=== PATIENT | female | born 1990 | race Caucasian/White ===

== ENCOUNTER 2016-12-15 04:32 | Emergency (ER) | payer SELFPAY ==
[~2016-12-15] VITALS: Ht 165.1 cm; Wt 62.0 kg
[~2016-12-15 04:32] MED LIST: IBUP800 PO; MACR100C PO; PYRI200T4 PO
[2016-12-15 04:34] VITALS: BP 139/82; PULSE 111; RESP 16; TEMP 97.7; O2SAT 100
[2016-12-15] MEDS ORDERED: MORPHINE SULFATE 4 MG/ML INJ IM ONE (05:15)
[2016-12-15] MEDS ORDERED: METR-1 PO (05:45)
--- NOTE | 2016-12-15 05:45 | PD ---
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 Patient has a history of reported endometriosis and ovarian cyst. States that for the last 3-4 days she has been having crampy and sharp pain to the left lower quadrant of the abdomen. It worsened today prompting her ER visit. Pain is moderate, constant but does wax and wane. She believes she may have a urinary tract infection due to urinary frequency and slight dysuria. She denies any change in vaginal discharge, new sexual partners or high-risk sexual behavior. Last menstrual. Started approximately 7 days ago. She does not play she could be . Bowel movements regular. No fevers or chills. PFSH Past Medical History Anemia: Yes Anxiety: Yes Depression: Yes Cancer: No Cardiovascular Problems: No COPD: Yes (CHRONIC BRONCHITIS) Diminished Hearing: No Endocrine: No Gastrointestinal Disorders: No Genitourinary: Yes Immune Disorder: No Implanted Vascular Access Dvce: No Kidney Stones: Yes Musculoskeletal: No Neurologic: No Reproductive: Yes (ENDOMETRIOSIS) Respiratory: No Immunizations Current: No ?: Not Menopausal: No : 0 Ovarian Cysts: Yes Past Surgical History Abdominal Surgery: No Cardiac Surgery: No Ear Surgery: No Endocrine Surgery: No Eye Surgery: No Genitourinary Surgery: No Gynecologic Surgery: No Neurologic Surgery: No Oral Surgery: No Thoracic Surgery: No Other Surgery: No Social History Alcohol Use: Yes (3-4 TIMES PER WEEK) Tobacco Use: Yes (1/2 PPD) Substance Use: No (PT DENIES) Allergies-Medications (Allergen,Severity, Reaction): Coded Allergies: Provera (Verified Allergy, Severe, HIVES, 12/15/16) Sulfa (Verified Allergy, Severe, HIVES, 12/15/16) Reported Meds & Prescriptions Reported Meds & Active Scripts Active Flagyl (Metronidazole) 500 Mg Tab 500 Mg PO TID 7 Days Review of Systems Except as stated in HPI: all other systems reviewed are Neg Physical Exam Narrative GENERAL: well-appearing female in mild distress SKIN: Warm and dry. HEAD: Normocephalic. EYES: No scleral icterus. No injection or drainage. ENT: Mucous membranes pink and moist. NECK: Supple CARDIOVASCULAR: Regular rate and rhythm. RESPIRATORY: No accessory muscle use. GASTROINTESTINAL: Abdomen soft, left pelvic tenderness to palpation without rebound or guarding GENITOURINARY: Normal external female genitalia. Speculum examination reveals physiologic appearing discharge within the vaginal vault. No cervical erythema. No cervical motion tenderness but significant left adnexal pain without fullness MUSCULOSKELETAL: No obvious deformities. No edema. NEUROLOGICAL: Awake and alert. Normal speech. PSYCHIATRIC: Appropriate mood and affect; insight and judgment normal. Data Data Last Documented VS Vital Signs Date Time Temp Pulse Resp B/P Pulse Ox O2 Delivery O2 Flow Rate FiO2 12/15/16 05:05 12/15/16 04:34 97.7 111 16 100 Room Air Orders Urinalysis - C+S If Indicated (12/15/16 04:48) Ed Urine Pregnancytest Poc (12/15/16 04:48) Gc And Chlamydia Pcr (12/15/16 05:14) Us Pelvis Comp Sanitary Plumber/Non-Preg (12/15/16 ) Wet Prep Profile (12/15/16 05:14) Morphine Inj (Morphine Inj) (12/15/16 05:15) Labs Laboratory Tests Test 12/15/16 05:16 Urine Color COLORLESS Urine Turbidity CLEAR Urine pH 6.0 Urine Specific [place] 1.003 Urine Protein NEG mg/dL Urine Glucose (UA) NEG mg/dL Urine Ketones NEG mg/dL Urine Occult Blood NEG Urine Nitrite NEG Urine Bilirubin NEG Urine Urobilinogen LESS THAN 2.0 MG/DL Urine Leukocyte Esterase NEG Urine WBC LESS THAN 1 /hpf Urine Squamous Epithelial <1 /hpf Cells Urine Bacteria RARE /hpf Microscopic Urinalysis Comment CULT NOT INDICATED Clue Cells (Wet Prep) NONE SEEN Vaginal Trichomonas (Wet Prep) PRESENT Vaginal Yeast (Wet Prep) NONE SEEN MDM Medical Decision Making Medical Screen Exam Complete: Yes Emergency Medical Condition: Yes Medical Record Reviewed: Yes Differential Diagnosis 26-year-old female here with complaint of left pelvic pain. Differential includes , ectopic , UTI, ureterolithiasis, ovarian cyst, ovarian torsion, TOA, endometriosis, PID. Narrative Course Patient placed on monitor. Given 4 mg morphine for pain. Urine test was negative. GC and Chlamydia sent, but I would not empirically treat patient based on her symptoms and pelvic exam. Wet prep positive for Trichomonas. Urinalysis unremarkable. Ultrasound pelvis pending at the time of dictation. Patient signed out to oncoming provider waiting results of same for hopeful disposition to home. Diagnosis Primary Impression: Trichomonas infection Additional Impression: Pelvic pain Med/Other Pt SpecificInfo: Prescription(s) given Scripts Metronidazole (Flagyl)500 Mg [id number] Mg PO TID 7 Days Ref 0 Prov:Margie Garcias MD 12/15/16 Margie Garcias MD Dec 15, 2016 05:45
[2016-12-15 06:17] LABS: BACTERIA, URINE RARE /hpf; BLOOD, URINE NEG (NEG); COMMENT (UR) CULT NOT INDICATED; CULTURE IF INDICATED CULT NOT INDICATED; GLUCOSE,URINE NEG (NEG); KETONE, URINE NEG (NEG); NITRITE,URINE NEG (NEG); SQUAMOUS EPITHELIAL CELL URINE <1 /hpf (0-5); URINE COLOR COLORLESS (YELLW/STRAW)
--- NOTE | 2016-12-15 08:19 | RADRPT ---
EXAM DATE/TIME: 12/15/2016 07:44 [place] COMPARISON: No previous studies available for comparison. INDICATIONS : Left pelvic pain. MEDICAL HISTORY : Ovarian cysts. Endometriosis. Chronic bronchitits. Renal calculi. SURGICAL HISTORY : None. ENCOUNTER: Initial ACUITY: 2 days PAIN SCORE: 6/10 LOCATION: Left pelvis MEASUREMENTS: UTERUS: 9.0 x 5.1 x 2.5 cm ENDOMETRIAL STRIPE: 7 mm RIGHT OVARY: 3.3 x 4.3 x 1.5 cm LEFT OVARY: 4.2 x 4.2 X 2.1 cm FINDINGS: UTERUS: The myometrium has homogeneous echotexture without mass. RIGHT OVARY: Ovary contains no mass or significant cystic lesion.Normal flow. Multiple follicles. LEFT OVARY: Ovary contains no mass or significant cystic lesion. Normal flow. Simple cyst measures 30 x 22 x 35 mm. MISCELLANEOUS: No free fluid. CONCLUSION: 1. Simple cyst left ovary measures 2.5 cm. 2. No torsion seen. Heri Galvin MD on December 15, 2016 at 8:16 Board Certified Radiologist. This report was verified electronically.
[2016-12-15 08:25] VITALS: BP 115/56; PULSE 88; RESP 16; O2SAT 97
[2016-12-15 09:15] LABS: CHLAMYDIA PCR NOT DETECTED (NOT DETECT); NEISSERIA PCR NOT DETECTED (NOT DETECT)
--- NOTE | 2016-12-15 10:39 | PD ---
Data Data Last Documented VS Vital Signs Date Time Temp Pulse Resp B/P Pulse Ox O2 Delivery O2 Flow Rate FiO2 12/15/16 08:25 88 16 115/56 97 Room Air 12/15/16 04:34 97.7 Orders Urinalysis - C+S If Indicated (12/15/16 04:48) Ed Urine Pregnancytest Poc (12/15/16 04:48) Gc And Chlamydia Pcr (12/15/16 05:14) Wet Prep Profile (12/15/16 05:14) Morphine Inj (Morphine Inj) (12/15/16 05:15) Us Pelvis Comp W Doppler (12/15/16 ) Labs Laboratory Tests Test 12/15/16 05:16 Urine Color COLORLESS Urine Turbidity CLEAR Urine pH 6.0 Urine Specific [place] 1.003 Urine Protein NEG mg/dL Urine Glucose (UA) NEG mg/dL Urine Ketones NEG mg/dL Urine Occult Blood NEG Urine Nitrite NEG Urine Bilirubin NEG Urine Urobilinogen LESS THAN 2.0 MG/DL Urine Leukocyte Esterase NEG Urine WBC LESS THAN 1 /hpf Urine Squamous Epithelial <1 /hpf Cells Urine Bacteria RARE /hpf Microscopic Urinalysis Comment CULT NOT INDICATED Clue Cells (Wet Prep) NONE SEEN Vaginal Trichomonas (Wet Prep) PRESENT Vaginal Yeast (Wet Prep) NONE SEEN Chlamydia trachomatis DNA NOT DETECTED (PCR) Neisseria gonorrhoeae DNA NOT DETECTED (PCR) MDM Supervised Visit with WERO: No Narrative Course Case is checked out to me by Dr. Clark at 7 AM. I reviewed the entirety of the workup with the patient. Was sound asleep when I went in to talk to her and feeling much better. Urine is clean is negative Ultrasound reveals 2.5 cm left ovarian cyst without torsion Stable for outpatient follow-up Flagyl has been prescribed for Trichomonas on wet prep Diagnosis Primary Impression: Trichomonas infection Additional Impression: Pelvic pain Patient Instructions: General Instructions, Trichomoniasis (ED), Pelvic Pain in Women (ED) Departure Forms: Tests/Procedures Med/Other Pt SpecificInfo: Prescription(s) given Scripts Metronidazole (Flagyl)500 Mg [id number] Mg PO TID 7 Days Ref 0 Prov:Margie Garcias MD 12/15/16 Disposition: 01 DISCHARGE HOME Condition: Stable Abram Koenig MD Dec 15, 2016 10:39
[2017-01-22] MEDS ORDERED: ZOFR4TAB PO (10:23)
== END 2016-12-15 10:57 | disposition home or self-care (01) ==
LOC: NEPE 04:32
DX: A59.9 Trichomoniasis, unspecified (principal); F17.210 Nicotine dependence, cigarettes, uncomplicated
CPT/HCPCS: 76856; 81001; 84703; 87210; 87491; 87591; 93975; 96372; 99284; J2270

== ENCOUNTER 2017-01-10 12:50 | Inpatient (IN) | payer SELFPAY ==
[~2017-01-10] VITALS: Ht 165.1 cm; Wt 54.4 kg
[~2017-01-10 12:50] MED LIST changes: -IBUP800 PO; -MACR100C PO; +METR-1 PO; -PYRI200T4 PO
[2017-01-10 12:51] VITALS: BP 122/82; PULSE 132; RESP 24; TEMP 102.8; O2SAT 97
--- NOTE | 2017-01-10 13:01 | PD ---
Physical Exam Date Seen by Provider: Jan 10, 2017 Time Seen by Provider: 12:59 Narrative 26 year old female presents to the emergency department for evaluation of lower back pain, headache, cough. Patient states symptoms started at 7am. She reports fevers, last took Excedrin Migraine, Delsym yesterday. She has not taken anything today for fever. No history of IVDU. Vital signs reviewed. Patient awaiting bed placement. Data Data Last Documented VS Vital Signs Date Time Temp Pulse Resp B/P Pulse Ox O2 Delivery O2 Flow Rate FiO2 01/10/17 12:51 102.8 132 24 122/82 97 Room Air [facility] Supervised Visit with WERO: Anh Jain Jan 10, 2017 13:01
[2017-01-10] MEDS ORDERED: SODIUM CHLOR 0.9% 1000 ML INJ 1,000 ML IV ONE (13:30)
[2017-01-10] MEDS ORDERED: ACETAMINOPHEN 500 MG CPLT PO ONE (13:30)
[2017-01-10] MEDS ORDERED: KETOROLAC TROMETHAMINE 30 MG/ML (IVP) VIAL IV PUSH ONE (13:30)
[2017-01-10 14:28] LABS: HEMATOCRIT 39.2 % (35.0-46.0); MEAN CELL VOLUME 93.1 FL (80.0-100.0); MEAN CORPUSCULAR HEMOGLOBIN 31.8 PG (27.0-34.0); MEAN CORPUSCULAR HGB CONC 34.1 % (32.0-36.0); PLATELET COUNT 252 TH/MM3 (150-450); RED BLOOD COUNT 4.21 MIL/MM3 (4.00-5.30); RED CELL DISTRIBUTION WIDTH 12.9 % (11.6-17.2); WHITE BLOOD COUNT 17.3 TH/MM3 (4.0-11.0)
[2017-01-10 14:32] LABS: HEMO FLAGS AUTO DIFF
[2017-01-10 14:40] LABS: ALT (GPT) 15 U/L (10-53); ANION GAP 8 MEQ/L (5-15); AST (GOT) 8 U/L (15-37); BICARBONATE 29.9 MEQ/L (21.0-32.0); BLOOD UREA NITROGEN 7 MG/DL (7-18); CHLORIDE 96 MEQ/L (98-107); GLOMERULAR FILTRATION RATE 87 ML/MIN (>89); POTASSIUM 3.6 MEQ/L (3.5-5.1); SODIUM (NA) 134 MEQ/L (136-145)
[2017-01-10 14:42] LABS: ALKALINE PHOSPHATASE 77 U/L (45-117); TOTAL BILIRUBIN ADULT 0.3 MG/DL (0.2-1.0)
[2017-01-10 15:03] LABS: BACTERIA, URINE MOD /hpf; BLOOD, URINE LARGE (NEG); COMMENT (UR) CATH-CULTURE IND; CULTURE IF INDICATED CATH CULTURE IND; GLUCOSE,URINE NEG (NEG); KETONE, URINE 40 mg/dL (NEG); MUCUS URINE MOD /lpf (OCC); NITRITE,URINE POS (NEG); PH, URINE 5.5 (5.0-8.5); SQUAMOUS EPITHELIAL CELL URINE 1 /hpf (0-5); TRANSITIONAL EPI CELLS, URINE <1 /hpf; URINE COLOR YELLOW (YELLW/STRAW)
[2017-01-10 15:06] LABS: BANDS 6 % (0-6); NEUTROPHIL # MANUAL DIFF 16.3 TH/MM3 (1.8-7.7); PLATELET ESTIMATE SMEAR NORMAL (NORMAL); PLATELET MORPHOLOGY NORMAL (NORMAL); POLYS (SEG NEUTROPHILS) 88 % (16-70); SCAN/DIFF FINAL DIFF MANUAL; TOXIC VACUOLATION PRESENT (NONE SEEN); WBC DIFF SAMPLE 100
[2017-01-10] MEDS ORDERED: cefTRIAXone INJ 1,000 MG in SODIUM CHLORIDE 0.9% INJ 50 ML IV ONE (15:15)
[2017-01-10 15:31] VITALS: BP 118/70; PULSE 88; RESP 18; TEMP 99.5; O2SAT 98
--- NOTE | 2017-01-10 16:51 | PD ---
HPI Chief Complaint: Cold / Flu Symptoms Time Seen by Provider: 13:23 Travel History International Travel<30 days: No Contact w/Intl Traveler<30days: No Traveled to known affect area: No History of Present Illness HPI This is a 26-year-old female who has a history of recurrent bladder infections who presents to the emergency department with 2 days of lower back pain, constant, moderate severity, associated with fevers and chills. She denies any dysuria, frequency, urgency, sore throat, rhinorrhea or cough. She has a history of recurrent bladder infections. There was a period in time when she required a [place] catheter for 6 months because she couldn't urinate. PFSH Past Medical History Anemia: Yes Anxiety: Yes Depression: Yes Cardiovascular Problems: No COPD: Yes (CHRONIC BRONCHITIS) Diminished Hearing: No Endocrine: No Gastrointestinal Disorders: No Genitourinary: Yes Immune Disorder: No Implanted Vascular Access Dvce: No Kidney Stones: Yes Musculoskeletal: No Neurologic: No Reproductive: Yes (ENDOMETRIOSIS) Respiratory: No Immunizations Current: No Tetanus Vaccination: < 5 Years Influenza Vaccination: Yes ?: Not LMP: 01/08/17 Menopausal: No : 0 Ovarian Cysts: Yes Past Surgical History Abdominal Surgery: No Cardiac Surgery: No Ear Surgery: No Endocrine Surgery: No Eye Surgery: No Genitourinary Surgery: No Gynecologic Surgery: No Neurologic Surgery: No Oral Surgery: No Thoracic Surgery: No Other Surgery: No Social History Alcohol Use: Yes (3-4 TIMES PER WEEK) Tobacco Use: Yes (1/2 PPD) Substance Use: No (PT DENIES) Allergies-Medications (Allergen,Severity, Reaction): Coded Allergies: Provera (Verified Allergy, Severe, HIVES, 01/10/17) Sulfa (Verified Allergy, Severe, HIVES, 01/10/17) Reported Meds & Prescriptions Reported Meds & Active Scripts Active No Active Prescriptions or Reported Medications Review of Systems Except as stated in HPI: all other systems reviewed are Neg Physical Exam Narrative GENERAL: Unwell-appearing. SKIN: Focused skin assessment warm and dry. HEAD: Atraumatic. Normocephalic. EYES: Pupils equal and round. No injection or drainage. ENT: Moist mucous membranes NECK: Trachea midline. CARDIOVASCULAR: Regular rate and rhythm. No murmur appreciated. RESPIRATORY: Clear to auscultation. Breath sounds equal bilaterally. GASTROINTESTINAL: Abdomen soft, non-tender, nondistended. : Bilateral CVA tenderness. MUSCULOSKELETAL: No obvious deformities. NEUROLOGICAL: Awake and alert. No obvious cranial nerve deficits. Moving all extremities. PSYCHIATRIC: Appropriate mood and affect; insight and judgment normal. Data Data Last Documented VS Vital Signs Date Time Temp Pulse Resp B/P Pulse Ox O2 Delivery O2 Flow Rate FiO2 01/10/17 15:31 99.5 88 18 118/70 98 Room Air Orders Complete Blood Count With Diff (01/10/17 13:23) Comprehensive Metabolic Panel (01/10/17 13:23) ^ Insert Iv (01/10/17 13:23) Blood Culture (01/10/17 13:23) Lactic Acid (01/10/17 13:23) Sodium Chlor 0.9% 1000 Ml Inj (Ns 1000 M (01/10/17 13:30) Acetaminophen (Tylenol) (01/10/17 13:30) Ketorolac Inj (Toradol Inj) (01/10/17 13:30) Urinalysis - C+S If Indicated (01/10/17 13:23) Cath For Specimen (01/10/17 13:23) Ed Urine Pregnancytest Poc (01/10/17 13:23) Urine Culture (01/10/17 14:30) Ceftriaxone Inj (Rocephin Inj) (01/10/17 15:15) Admit Order (Ed Use Only) (01/10/17 16:20) Labs Laboratory Tests Test 01/10/17 01/10/17 13:50 14:30 White Blood Count 17.3 TH/MM3 Red Blood Count 4.21 MIL/MM3 Hemoglobin 13.4 GM/DL Hematocrit 39.2 % Mean Corpuscular Volume 93.1 FL Mean Corpuscular Hemoglobin 31.8 PG Mean Corpuscular Hemoglobin 34.1 % Concent Red Cell Distribution Width 12.9 % Platelet Count 252 TH/MM3 Mean Platelet Volume 8.5 FL Neutrophils (%) (Auto) % Lymphocytes (%) (Auto) % Monocytes (%) (Auto) % Eosinophils (%) (Auto) % Basophils (%) (Auto) % Neutrophils # (Auto) TH/MM3 Lymphocytes # (Auto) TH/MM3 Monocytes # (Auto) TH/MM3 Eosinophils # (Auto) TH/MM3 Basophils # (Auto) TH/MM3 CBC Comment AUTO DIFF Differential Total Cells 100 Counted Neutrophils % (Manual) 88 % Band Neutrophils % 6 % Lymphocytes % 2 % Monocytes % 4 % Neutrophils # (Manual) 16.3 TH/MM3 Differential Comment FINAL DIFF MANUAL Toxic Vacuolation PRESENT Platelet Estimate NORMAL Platelet Morphology Comment NORMAL Red Cell Morphology Comment NORMAL Sodium Level 134 MEQ/L Potassium Level 3.6 MEQ/L Chloride Level 96 MEQ/L Carbon Dioxide Level 29.9 MEQ/L Anion Gap 8 MEQ/L Blood Urea Nitrogen 7 MG/DL Creatinine 0.81 MG/DL Estimat Glomerular Filtration 87 ML/MIN Rate Random Glucose 107 MG/DL Lactic Acid Level 1.0 mmol/L Calcium Level 9.1 MG/DL Total Bilirubin 0.3 MG/DL Aspartate Amino Transf 8 U/L (AST/SGOT) Alanine Aminotransferase 15 U/L (ALT/SGPT) Alkaline Phosphatase 77 U/L Total Protein 8.0 GM/DL Albumin 3.7 GM/DL Urine Color YELLOW Urine Turbidity HAZY Urine pH 5.5 Urine Specific [place] 1.026 Urine Protein 100 mg/dL Urine Glucose (UA) NEG mg/dL Urine Ketones 40 mg/dL Urine Occult Blood LARGE Urine Nitrite POS Urine Bilirubin NEG Urine Urobilinogen LESS THAN 2.0 MG/DL Urine Leukocyte Esterase SMALL Urine RBC 21 /hpf Urine WBC 13 /hpf Urine Squamous Epithelial 1 /hpf Cells Urine Transitional Epithelial <1 /hpf Cells Urine Amorphous Sediment RARE Urine Bacteria MOD /hpf Urine Mucus MOD /lpf Microscopic Urinalysis Comment CATH-CULTURE IND MDM Medical Decision Making Medical Screen Exam Complete: Yes Emergency Medical Condition: Yes Interpretation(s) Fever, tachycardia Leukocytosis 88% neutrophils Electrolytes are reassuring Lactic acid is normal Urinalysis: Urinary tract infection Differential Diagnosis Pyelonephritis, cystitis, sepsis, nephrolithiasis Narrative Course This is a 26-year-old female who presents to the emergency department with fevers and low back pain. Her pain is bilateral. She was febrile on arrival. An IV was established and she was given IV hydration, acetaminophen and Toradol. Labs demonstrate a leukocytosis. Cultures were obtained and patient was given a dose of ceftriaxone. She'll be admitted for sepsis in the setting of likely pyelonephritis. I considered an infected stone but her pain is bilateral so I think this is less likely in patient is young and there is a risk of radiation. If her pain lateralizes or she doesn't improve it would be reasonable to CT scan at that time. Physician Communication Physician Communication Discussed with Dr. Samuels Diagnosis Primary Impression: Pyelonephritis Admitting Information Admitting Physician Requests: Admit Scripts No Active Prescriptions or Reported Meds Pamela Chauhan MD Jan 10, 2017 16:51
[2017-01-10] MEDS: SODIUM CHLOR 0.9% 1000 ML INJ 1,000 ML IV SCH ×2 (16:52→19:37)
[2017-01-10 17:00] VITALS: BP 101/65; PULSE 95; RESP 16; TEMP 99.3; O2SAT 98
[2017-01-10 18:28] LABS: AMPHETAMINE, URINE NEG (NEG); BARBITURATES, URINE NEG (NEG); COCAINE, URINE POS (NEG)
[2017-01-10] MEDS: traMADol/ACETAMINOPHEN 37.5/325 1 TAB PO PRN (18:36)
[2017-01-10 20:16] VITALS: BP 102/51; PULSE 106; RESP 18; TEMP 101.6; O2SAT 98
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
[2017-01-10] MEDS: ACETAMINOPHEN 325 MG TAB PO PRN (21:57)
[2017-01-10] MEDS: ONDANSETRON HCL 4 MG/2 ML VIAL IV PUSH PRN (23:14)
[2017-01-11] VITALS (7 sets, daily range): BP systolic 96–113; BP diastolic 56–67; PULSE 79–109; RESP 16–22; TEMP 97.5–101.9; O2SAT 95–99
[2017-01-11] MEDS: traMADol/ACETAMINOPHEN 37.5/325 1 TAB PO PRN ×3 (06:43→23:37)
[2017-01-11 07:55] LABS: HEMATOCRIT 33.4 % (35.0-46.0); MEAN CELL VOLUME 93.4 FL (80.0-100.0); MEAN CORPUSCULAR HEMOGLOBIN 30.6 PG (27.0-34.0); MEAN CORPUSCULAR HGB CONC 32.8 % (32.0-36.0); PLATELET COUNT 187 TH/MM3 (150-450); RED BLOOD COUNT 3.58 MIL/MM3 (4.00-5.30); RED CELL DISTRIBUTION WIDTH 12.9 % (11.6-17.2); WHITE BLOOD COUNT 17.6 TH/MM3 (4.0-11.0)
[2017-01-11 08:04] LABS: HEMO FLAGS AUTO DIFF
[2017-01-11 09:00] LABS: BANDS 3 % (0-6); NEUTROPHIL # MANUAL DIFF 15.7 TH/MM3 (1.8-7.7); POLYS (SEG NEUTROPHILS) 86 % (16-70); WBC DIFF SAMPLE 100
[2017-01-11 09:01] LABS: PLATELET ESTIMATE SMEAR NORMAL (NORMAL); PLATELET MORPHOLOGY NORMAL (NORMAL); SCAN/DIFF FINAL DIFF MANUAL
[2017-01-11] MEDS: ACETAMINOPHEN 325 MG TAB PO PRN ×3 (09:05→23:37)
[2017-01-11] MEDS: ONDANSETRON HCL 4 MG/2 ML VIAL IV PUSH PRN (09:43)
[2017-01-11] MEDS ORDERED: cefTRIAXone INJ 1,000 MG in SODIUM CHLORIDE 0.9% INJ 100 ML IV SCH (13:00)
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
--- NOTE | 2017-01-11 17:56 | HHI.PR ---
Subjective Remarks denies any urinary symptoms, flank pain T max 102 with sweating some loose stools Objective Vitals Vital Signs Date Time Temp Pulse Resp B/P Pulse Ox O2 Delivery O2 Flow Rate FiO2 01/11/17 15:48 101.2 92 18 113/67 97 01/11/17 11:43 97.5 79 18 100/58 98 01/11/17 10:05 16 01/11/17 07:43 17 01/11/17 07:19 101.9 109 18 108/61 96 01/11/17 04:00 100.0 93 18 103/67 99 01/11/17 00:00 100.3 108 22 96/56 97 01/10/17 20:16 101.6 106 18 102/51 98 I/O 01/10/17 01/10/17 01/10/17 01/11/17 01/11/17 01/11/17 07:00 15:00 23:00 07:00 15:00 23:00 Intake Total 350 ml 944 ml Balance 350 ml 944 ml Intake Oral 50 ml 100 ml IV Total 300 ml 844 ml # Voids 1 1 # Bowel Movements 0 0 Result Diagram: 01/11/17 0723 01/10/17 1350 Imaging Last Impressions Renal Ultrasound 01/11/17 0000 Signed Impressions: Service Date/Time: Wednesday, January 11, 2017 14:35 - CONCLUSION: 1. Possible mass mid pole left kidney. Recommend further evaluation with abdomen and pelvic CT with contrast. Filipe Ureña MD Pelvis Ultrasound 01/11/17 0000 Signed Impressions: Service Date/Time: Wednesday, January 11, 2017 14:27 - CONCLUSION: 1. Probable trace hemorrhage in the endometrial canal. 2. 4.2 x 3.1 x 2.2 cm left ovarian cyst slightly larger than on December 15. 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 Cocaine abuse. Patient vehemently denies this Low back pain possibly related to urinary tract infection no point tenderness on examination of the spine no radiculopathy - no complains Ultracet when necessary for pain If persists will do more imaging studies. Encourage ambulation Mike Samuels MD Jan 11, 2017 17:56
[2017-01-11] MEDS ORDERED: IOHEXOL 350 MG/ML 10 ML VIAL (for RAD DIAG) IV ONE (18:50)
[2017-01-11 22:19] LABS: C. DIFF EPI 027 PRESUMPTIVE NEGATIVE (NEGATIVE); C. DIFF TOXIN PCR NEGATIVE (NEGATIVE)
--- NOTE | 2017-01-11 22:19 | RADRPT ---
EXAM DATE/TIME: 01/11/2017 18:46 [facility] COMPARISON: No previous studies available for comparison. INDICATIONS : Abdomen pain. IV CONTRAST: 100 cc Omnipaque 350 (iohexol) IV ORAL CONTRAST: No oral contrast ingested. RADIATION DOSE: 5.51 CTDIvol (mGy) MEDICAL HISTORY : Pyelonephritis, ovarian cyst. SURGICAL HISTORY : None. ENCOUNTER: Initial ACUITY: 1 day PAIN SCALE: 5/10 LOCATION: Bilateral flank TECHNIQUE: Volumetric scanning of the abdomen and pelvis was performed. Using automated exposure control and ad justment of the mA and/or kV according to patient size, radiation dose was kept as low as reasonably achievable to obtain optimal diagnostic quality images. FINDINGS: Reportedly there is a history of pyelonephritis. There is a focal 4.4 cm area of heterogeneous enhanc ement in the midpole left kidney and a 3 cm area in the upper pole left kidney. There is also surroun ding stranding and edematous change. Findings are most characteristic of pyelonephritis. Abnormality in the midpole kidney was seen sonographically. An ultrasound followup is recommended after treatment to assess for resolution. There are trace bilateral pleural effusions. Small cyst upper portion dome of liver. Spleen, right ad renal, right kidney and pancreas unremarkable. There is a 1.6 cm low-attenuation lesion just anterior to the upper pole left kidney unchanged from 2012, possibly small cyst or adenoma. No calcified gall stones or biliary ductal dilatation. There is a 3.9 cm cyst left adnexa. There is no free fluid. A mild obstruction. No adenopathy. CONCLUSION: 1. Focal areas of heterogeneous enhancement in the midpole left kidney measuring 4.4 cm in upper pole left kidney measuring 3 cm with surrounding perinephric stranding and most characteristic of a repor citlalli history of pyelonephritis. The abnormality in the midpole is seen sonographically and followup ul trasound recommended next 6 weeks to assess for for resolution after treatment of pyelonephritis. 2. No other acute findings within the abdomen. There is a 3.9 cm presumed cyst in the left adnexal re wayne Ureña MD on January 11, 2017 at 22:07 Board Certified Radiologist. This report was verified electronically.
[2017-01-12] MEDS: ONDANSETRON HCL 4 MG/2 ML VIAL IV PUSH PRN (06:19)
[2017-01-12 07:18] LABS: AUTOMATED NEUTROPHIL # 7.1 TH/MM3 (1.8-7.7); BASOPHIL # 0.1 TH/MM3 (0-0.2); BASOPHIL % 0.5 % (0.0-2.0); EOSINOPHIL # 0.1 TH/MM3 (0-0.4); EOSINOPHIL % 0.6 % (0.0-4.0); HEMATOCRIT 31.9 % (35.0-46.0); HEMO FLAGS DIFF FINAL; LYMPH % 18.2 % (9.0-44.0); LYMPHOCYTE # 1.9 TH/MM3 (1.0-4.8); MEAN CELL VOLUME 92.5 FL (80.0-100.0); MEAN CORPUSCULAR HGB CONC 34.6 % (32.0-36.0); MONO % 13.3 % (0.0-8.0); NEUT % 67.4 % (16.0-70.0); PLATELET COUNT 230 TH/MM3 (150-450); RED BLOOD COUNT 3.45 MIL/MM3 (4.00-5.30); RED CELL DISTRIBUTION WIDTH 13.1 % (11.6-17.2); WHITE BLOOD COUNT 10.5 TH/MM3 (4.0-11.0)
[2017-01-12 08:00] VITALS: BP 111/76; PULSE 66; RESP 16; TEMP 97.8; O2SAT 100
[2017-01-12] MEDS: ACETAMINOPHEN 325 MG TAB PO PRN (09:07)
[2017-01-12] MEDS: traMADol/ACETAMINOPHEN 37.5/325 1 TAB PO PRN (09:07)
--- NOTE | 2017-01-12 09:58 | HHI.PR ---
Subjective Remarks T down - 97.3 no dysuria, or flank pain, no headache no nausea or vomiting Objective Vitals Vital Signs Date Time Temp Pulse Resp B/P Pulse Ox O2 Delivery O2 Flow Rate FiO2 01/11/17 23:45 99.4 80 16 111/67 95 01/11/17 20:05 98.9 86 16 108/64 97 01/11/17 15:48 101.2 92 18 113/67 97 01/11/17 11:43 97.5 79 18 100/58 98 01/11/17 10:05 16 I/O 01/11/17 01/11/17 01/11/17 01/12/17 01/12/17 01/12/17 07:00 15:00 23:00 07:00 15:00 23:00 Intake Total 944 ml 720 ml 580 ml 1000 ml Balance 944 ml 720 ml 580 ml 1000 ml Intake Oral 100 ml 720 ml 240 ml 480 ml IV Total 844 ml 340 ml 520 ml # Voids 1 4 2 1 # Bowel Movements 0 3 1 0 Result Diagram: 01/12/17 0605 01/10/17 1350 Imaging Last Impressions Renal Ultrasound 01/11/17 0000 Signed Impressions: Service Date/Time: Wednesday, January 11, 2017 14:35 - CONCLUSION: 1. Possible mass mid pole left kidney. Recommend further evaluation with abdomen and pelvic CT with contrast. Filipe Ureña MD Pelvis Ultrasound 01/11/17 0000 Signed Impressions: Service Date/Time: Wednesday, January 11, 2017 14:27 - CONCLUSION: 1. Probable trace hemorrhage in the endometrial canal. 2. 4.2 x 3.1 x 2.2 cm left ovarian cyst slightly larger than on December 15. Filipe Ureña MD Abdomen/Pelvis CT 01/11/17 0000 Signed Impressions: Service Date/Time: Wednesday, January 11, 2017 18:46 - CONCLUSION: 1. Focal areas of heterogeneous enhancement in the midpole left kidney measuring 4.4 cm in upper pole left kidney measuring 3 cm with surrounding perinephric stranding and most characteristic of a reported history of pyelonephritis. The abnormality in the midpole is seen sonographically and followup ultrasound recommended next 6 weeks to assess for for resolution after treatment of pyelonephritis. 2. No other acute findings within the abdomen. There is a 3.9 cm presumed cyst in the left adnexal region Filipe Ureña MD Objective Remarks awake and alert lungs clear regular rhythm abdomen soft, nontender, no CVA tenderness extremities no edema A/P Assessment and Plan 26-year-old female presenting with fever chills tachycardia- improved Sepsis likely secondary to acute pyelonephritis - afebrile with microscopic hematuria- just finished her cycles- E coli on urine history of kidney mass CT no mass- suggest pyelonephritis Irregular menstrual cycles- ff up with [facility]- referral through Dr. Hart- blue card issued Leukocytosis secondary to sepsis- Improved- afebrile- WBC down Cocaine abuse. Patient vehemently denies this Low back pain possibly related to urinary tract infection no point tenderness on examination of the spine no radiculopathy - no complains Ultracet when necessary for pain DC today- ff up with our [facility] [place] and [facility]- - will ask CM to assist us- Blue card d/w about safe sex- patient monogamous DC home today Activity- as tolerated Diet regular. encourage po fluids Meds- Ciprofloxacin 500 mg po bid x 12 days Ff up with PCP Mike Samuels MD Jan 12, 2017 09:58
[2017-01-12] MEDS ORDERED: cefTRIAXone INJ 1,000 MG in SODIUM CHLORIDE 0.9% INJ 100 ML IV SCH (10:15)
[2017-01-12] MEDS ORDERED: CIPR-9 PO (10:19)
[2017-01-12 11:58] VITALS: BP 105/66; PULSE 78; RESP 16; TEMP 97.9; O2SAT 99
[2017-01-22] MEDS ORDERED: ZOFR4TAB PO (10:23)
== END 2017-01-12 15:24 | disposition home or self-care (01) | DRG 872 ==
LOC: NEPD 12:50 → NEDA 16:21 → N06B 17:08
PROVIDERS: ADMIT Internal Medicine; ATTEND Internal Medicine
DX: A41.9 Sepsis, unspecified organism (principal); N10 Acute pyelonephritis; F10.129 Alcohol abuse with intoxication, unspecified; F14.10 Cocaine abuse, uncomplicated; N28.89 Other specified disorders of kidney and ureter; R31.29 Other microscopic hematuria; J42 Unspecified chronic bronchitis; F17.200 Nicotine dependence, unspecified, uncomplicated
CPT/HCPCS: 74177; 76775; 76856; 80053; 80307; 81001; 83605; 84703; 85007; 85025; 85027; 87040; 87077; 87086; 87186; 87493; 96361; 96365; 96375; J0696; J1885; J2405; J7030; P9612; Q9967

== ENCOUNTER 2017-02-22 15:16 | Emergency (ER) | payer SELFPAY ==
[~2017-02-22] VITALS: Ht 165.1 cm; Wt 61.0 kg
[~2017-02-22 15:16] MED LIST changes: +CIPR-9 PO; -METR-1 PO; +ZOFR4TAB PO
[2017-02-22 15:18] VITALS: BP 119/73; PULSE 78; RESP 18; TEMP 98.2; O2SAT 98
[2017-02-22] MEDS ORDERED: SODIUM CHLOR 0.9% 1000 ML INJ 1,000 ML IV ONE (15:45)
[2017-02-22 16:19] LABS: AUTOMATED NEUTROPHIL # 3.7 TH/MM3 (1.8-7.7); BASOPHIL # 0.1 TH/MM3 (0-0.2); BASOPHIL % 0.9 % (0.0-2.0); EOSINOPHIL # 0.1 TH/MM3 (0-0.4); EOSINOPHIL % 1.1 % (0.0-4.0); HEMATOCRIT 37.1 % (35.0-46.0); HEMO FLAGS DIFF FINAL; LYMPH % 33.7 % (9.0-44.0); LYMPHOCYTE # 2.3 TH/MM3 (1.0-4.8); MEAN CELL VOLUME 91.8 FL (80.0-100.0); MEAN CORPUSCULAR HEMOGLOBIN 31.7 PG (27.0-34.0); MEAN CORPUSCULAR HGB CONC 34.5 % (32.0-36.0); NEUT % 54.3 % (16.0-70.0); PLATELET COUNT 309 TH/MM3 (150-450); RED BLOOD COUNT 4.04 MIL/MM3 (4.00-5.30); RED CELL DISTRIBUTION WIDTH 14.2 % (11.6-17.2); WHITE BLOOD COUNT 6.8 TH/MM3 (4.0-11.0)
[2017-02-22 16:42] LABS: ALT (GPT) 23 U/L (10-53); ANION GAP 10 MEQ/L (5-15); AST (GOT) 17 U/L (15-37); BICARBONATE 27.2 MEQ/L (21.0-32.0); BLOOD UREA NITROGEN 9 MG/DL (7-18); CHLORIDE 106 MEQ/L (98-107); GLOMERULAR FILTRATION RATE 125 ML/MIN (>89); POTASSIUM 4.1 MEQ/L (3.5-5.1); SODIUM (NA) 143 MEQ/L (136-145)
[2017-02-22 16:44] LABS: ALKALINE PHOSPHATASE 70 U/L (45-117); TOTAL BILIRUBIN ADULT 0.2 MG/DL (0.2-1.0)
[2017-02-22 16:55] LABS: BETA HCG QUANT LESS THAN 1 MIU/ML (0-5)
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
--- NOTE | 2017-02-22 17:17 | PD ---
HPI Chief Complaint: Abdominal Pain Time Seen by Provider: 15:29 Travel History International Travel<30 days: No Contact w/Intl Traveler<30days: No Traveled to known affect area: No History of Present Illness HPI Patient is a 26 year old female who comes in complaining of LLQ pain. She says the pain started yesterday and has been getting worse. She denies any dysuria, vaginal discharge. She tried taking some Naproxen without much relief. She says she had a period 2 months ago and only spotting last month. She has had 2 negative tests at home. She denies any nausea or vomiting. She denies fever or chills. She had a bowel movement this morning that was normal. PFSH Past Medical History Anemia: Yes Anxiety: Yes Depression: Yes Cancer: No Cardiovascular Problems: No COPD: Yes (CHRONIC BRONCHITIS) Diabetes: No Patient Takes Glucophage: No Diminished Hearing: No Endocrine: No Gastrointestinal Disorders: No Genitourinary: Yes Immune Disorder: No Implanted Vascular Access Dvce: No Kidney Stones: Yes Musculoskeletal: No Neurologic: No Reproductive: Yes (endometriosis) Respiratory: No Immunizations Current: No Tetanus Vaccination: > 5 Years ?: Unknown LMP: 02/14/2017 Menopausal: No : 0 Ovarian Cysts: Yes Past Surgical History Surgical History: No Previous Surgery Abdominal Surgery: No Cardiac Surgery: No Ear Surgery: No Endocrine Surgery: No Eye Surgery: No Genitourinary Surgery: No Gynecologic Surgery: No Neurologic Surgery: No Oral Surgery: No Thoracic Surgery: No Other Surgery: No Social History Alcohol Use: Yes (social once a week) Tobacco Use: Yes (2-3 cigs per day) Substance Use: No Allergies-Medications (Allergen,Severity, Reaction): Coded Allergies: Provera (Verified Allergy, Severe, HIVES, 01/22/17) Sulfa (Verified Allergy, Severe, HIVES, 01/22/17) Reported Meds & Prescriptions Reported Meds & Active Scripts Active Zofran (Ondansetron HCl) 4 Mg Tab 4 Mg PO Q12HR PRN Review of Systems Except as stated in HPI: all other systems reviewed are Neg General / Constitutional: No: Fever, Chills HENT: No: Headaches, Lightheadedness Cardiovascular: No: Chest Pain or Discomfort Respiratory: No: Shortness of Breath Gastrointestinal: Positive: Abdominal Pain, No: Nausea, Vomiting, Diarrhea, Constipation Genitourinary: No: Dysuria, Discharge, Vaginal Bleeding Skin: No Rash Neurologic: No: Weakness, Dizziness Physical Exam Narrative GENERAL: Awake and alert, in no acute distress. SKIN: Focused skin assessment warm/dry. HEAD: Atraumatic. Normocephalic. EYES: Pupils equal and round. No scleral icterus. ENT: Mucous membranes pink and moist. NECK: Trachea midline. No JVD. CARDIOVASCULAR: Regular rate and rhythm. No murmur appreciated. RESPIRATORY: No accessory muscle use. Clear to auscultation. Breath sounds equal bilaterally. GASTROINTESTINAL: Abdomen soft, nondistended. Tender to left pelvic area. No rebound or guarding. No CVA tenderness. 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 Clear discharged from the os. No CMT or adnexal tenderness. MUSCULOSKELETAL: No obvious deformities. No clubbing. No cyanosis. No edema. NEUROLOGICAL: Awake and alert. No obvious cranial nerve deficits. Motor grossly within normal limits. Normal speech. PSYCHIATRIC: Appropriate mood and affect; insight and judgment normal. Data Data Last Documented VS Vital Signs Date Time Temp Pulse Resp B/P Pulse Ox O2 Delivery O2 Flow Rate FiO2 02/22/17 15:30 16 02/22/17 15:18 98.2 78 119/73 98 Orders Complete Blood Count With Diff (02/22/17 15:41) Comprehensive Metabolic Panel (02/22/17 15:41) Wet Prep Profile (02/22/17 15:41) Gc And Chlamydia Pcr (02/22/17 15:41) Urinalysis - C+S If Indicated (02/22/17 15:41) Ed Urine Pregnancytest Poc (02/22/17 15:41) Sodium Chlor 0.9% 1000 Ml Inj (Ns 1000 M (02/22/17 15:45) Us Pelvis Comp Manager Filter/Non-Preg (02/22/17 ) Beta Hcg (Quant/Titer) (02/22/17 16:22) Cath For Specimen (02/22/17 16:59) Ketorolac Inj (Toradol Inj) (02/22/17 17:30) Labs Laboratory Tests Test 02/22/17 02/22/17 16:10 16:21 White Blood Count 6.8 TH/MM3 Red Blood Count 4.04 MIL/MM3 Hemoglobin 12.8 GM/DL Hematocrit 37.1 % Mean Corpuscular Volume 91.8 FL Mean Corpuscular Hemoglobin 31.7 PG Mean Corpuscular Hemoglobin 34.5 % Concent Red Cell Distribution Width 14.2 % Platelet Count 309 TH/MM3 Mean Platelet Volume 7.8 FL Neutrophils (%) (Auto) 54.3 % Lymphocytes (%) (Auto) 33.7 % Monocytes (%) (Auto) 10.0 % Eosinophils (%) (Auto) 1.1 % Basophils (%) (Auto) 0.9 % Neutrophils # (Auto) 3.7 TH/MM3 Lymphocytes # (Auto) 2.3 TH/MM3 Monocytes # (Auto) 0.7 TH/MM3 Eosinophils # (Auto) 0.1 TH/MM3 Basophils # (Auto) 0.1 TH/MM3 CBC Comment DIFF FINAL Differential Comment Sodium Level 143 MEQ/L Potassium Level 4.1 MEQ/L Chloride Level 106 MEQ/L Carbon Dioxide Level 27.2 MEQ/L Anion Gap 10 MEQ/L Blood Urea Nitrogen 9 MG/DL Creatinine 0.59 MG/DL Estimat Glomerular Filtration 125 ML/MIN Rate Random Glucose 84 MG/DL Calcium Level 8.5 MG/DL Total Bilirubin 0.2 MG/DL Aspartate Amino Transf 17 U/L (AST/SGOT) Alanine Aminotransferase 23 U/L (ALT/SGPT) Alkaline Phosphatase 70 U/L Total Protein 7.3 GM/DL Albumin 3.7 GM/DL Human Chorionic Gonadotropin, LESS THAN 1 Quant MIU/ML Urine Color YELLOW Urine Turbidity CLEAR Urine pH 7.0 Urine Specific Jayess 1.016 Urine Protein TRACE mg/dL Urine Glucose (UA) NEG mg/dL Urine Ketones NEG mg/dL Urine Occult Blood MOD Urine Nitrite NEG Urine Bilirubin NEG Urine Urobilinogen LESS THAN 2.0 MG/DL Urine Leukocyte Esterase NEG Urine RBC 78 /hpf Urine WBC 5 /hpf Urine Squamous Epithelial 1 /hpf Cells Urine Mucus FEW /lpf Microscopic Urinalysis Comment CULT NOT INDICATED Clue Cells (Wet Prep) NONE SEEN Vaginal Trichomonas (Wet Prep) NONE SEEN Vaginal Yeast (Wet Prep) NONE SEEN MDM Medical Decision Making Medical Screen Exam Complete: Yes Emergency Medical Condition: Yes Differential Diagnosis BV vs UTI vs pyelonephritis vs ovarian cyst Narrative Course Patient is a 26-year-old female comes in complaining of left-sided pelvic pain. Exam shows tenderness to the left pelvic area. IV established, labs sent. Labs show no acute abnormalities, patient is not . Urinalysis shows some occult blood, no signs of infection. US show persistent left ovarian cyst. Last 24 hours Impressions Pelvis Ultrasound 02/22/17 0000 Signed Impressions: Service Date/Time: Wednesday, February 22, 2017 16:26 - CONCLUSION: Persistent ovarian cyst on the left imaged multiple previous ultrasounds and CT. Isrrael Hernadez MD FACR Patient given IVF and Toradol. Advised to follow up with clinical project manager. Advised to continue Naproxen or Ibuprofen for pain. Advised to return to the ED as needed for any worsening symptoms. Diagnosis Primary Impression: Ovarian cyst Referrals: Virgie Collins MD call for appointment Patient Instructions: General Instructions, Ovarian Cyst (ED) Additional Instructions: Take Ibuprofen or Naproxen for pain. Follow up with gynecology. Return to the ED as needed for any worsening symptoms. Disposition: 01 DISCHARGE HOME Condition: Stable Rena Diaz MD February 22, 2017 17:17
[2017-02-22 17:25] LABS: BLOOD, URINE MOD (NEG); COMMENT (UR) CULT NOT INDICATED; CULTURE IF INDICATED CULT NOT INDICATED; GLUCOSE,URINE NEG (NEG); KETONE, URINE NEG (NEG); MUCUS URINE FEW /lpf (OCC); NITRITE,URINE NEG (NEG); SQUAMOUS EPITHELIAL CELL URINE 1 /hpf (0-5); URINE COLOR YELLOW (YELLW/STRAW)
[2017-02-22] MEDS ORDERED: KETOROLAC TROMETHAMINE 30 MG/ML (IVP) VIAL IV PUSH ONE (17:30)
[2017-02-22 17:49] VITALS: TEMP 98.2
[2017-02-22 18:31] LABS: CHLAMYDIA PCR NOT DETECTED (NOT DETECT); NEISSERIA PCR NOT DETECTED (NOT DETECT)
== END 2017-02-22 17:50 | disposition home or self-care (01) ==
LOC: NEPD 15:16
DX: N83.202 Unspecified ovarian cyst, left side (principal); Z72.0 Tobacco use; Z86.2 Personal history of diseases of the blood and blood-forming organs and certain disorders involving the immune mechanism; Z86.59 Personal history of other mental and behavioral disorders; Z87.09 Personal history of other diseases of the respiratory system; Z87.448 Personal history of other diseases of urinary system; Z87.42 Personal history of other diseases of the female genital tract
CPT/HCPCS: 76856; 80053; 81001; 84702; 85025; 87210; 87491; 87591; 96361; 96374; 99285; J1885; J7030; P9612

== ENCOUNTER 2017-03-05 01:34 | Emergency (ER) | payer SELFPAY ==
[~2017-03-05] VITALS: Ht 165.1 cm; Wt 62.3 kg
[~2017-03-05 01:34] MED LIST changes: -CIPR-9 PO
[2017-03-05 01:50] VITALS: BP 125/87; PULSE 130; RESP 24; TEMP 98.8; O2SAT 98
[2017-03-05] MEDS ORDERED: TETANUS/DIPHTHERIA TOXOID ADULT 0.5 ML VIAL IM ONE (02:15)
[2017-03-05] MEDS ORDERED: LIDOCAINE 1%/EPINEPHrine 1:100,000 SOLN 20 ML VIAL INFIL ONE (02:15)
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
== END 2017-03-05 02:52 | disposition left against medical advice (07) ==
LOC: NEPD 01:34
DX: Z53.21 Procedure and treatment not carried out due to patient leaving prior to being seen by health care provider (principal); S09.90XA Unspecified injury of head, initial encounter; S00.31XA Abrasion of nose, initial encounter; S10.97XA Other superficial bite of unspecified part of neck, initial encounter; M79.642 Pain in left hand; M79.641 Pain in right hand; Z72.0 Tobacco use; Y04.2XXA Assault by strike against or bumped into by another person, initial encounter
CPT/HCPCS: 99283

== ENCOUNTER 2017-03-19 21:16 | Emergency (ER) | payer SELFPAY ==
[~2017-03-19] VITALS: Ht 165.1 cm; Wt 62.0 kg
[2017-03-19 21:18] VITALS: BP 125/85; PULSE 114; RESP 16; TEMP 101.9; O2SAT 98
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
[2017-03-19] MEDS ORDERED: SODIUM CHLOR 0.9% 1000 ML INJ 1,000 ML IV ONE (22:15)
[2017-03-19] MEDS ORDERED: cefTRIAXone INJ 1,000 MG in SODIUM CHLORIDE 0.9% INJ 100 ML IV ONE (22:15)
[2017-03-19] MEDS ORDERED: ACETAMINOPHEN 500 MG CPLT PO ONE (22:15)
[2017-03-19] MEDS ORDERED: ONDANSETRON HCL 4 MG/2 ML VIAL IV ONE (22:15)
[2017-03-19 22:28] LABS: AUTOMATED NEUTROPHIL # 12.1 TH/MM3 (1.8-7.7); BASOPHIL % 0.3 % (0.0-2.0); EOSINOPHIL % 0.1 % (0.0-4.0); HEMO FLAGS DIFF FINAL; LYMPH % 7.2 % (9.0-44.0); MEAN CELL VOLUME 92.1 FL (80.0-100.0); MEAN CORPUSCULAR HEMOGLOBIN 31.3 PG (27.0-34.0); MONO % 6.8 % (0.0-8.0); NEUT % 85.6 % (16.0-70.0); PLATELET COUNT 278 TH/MM3 (150-450); RED BLOOD COUNT 4.45 MIL/MM3 (4.00-5.30); RED CELL DISTRIBUTION WIDTH 14.2 % (11.6-17.2); WHITE BLOOD COUNT 14.1 TH/MM3 (4.0-11.0)
[2017-03-19 22:33] LABS: BACTERIA, URINE MANY /hpf; BLOOD, URINE MOD (NEG); COMMENT (UR) CULTURE INDICATED; CULTURE IF INDICATED CULTURE INDICATED; GLUCOSE,URINE NEG (NEG); KETONE, URINE NEG (NEG); MUCUS URINE MANY /lpf (OCC); PH, URINE 6.5 (5.0-8.5); SQUAMOUS EPITHELIAL CELL URINE 20 /hpf (0-5); TRANSITIONAL EPI CELLS, URINE 4 /hpf; URINE COLOR YELLOW (YELLW/STRAW)
[2017-03-19 22:34] LABS: NITRITE,URINE POS (NEG)
[2017-03-19 22:41] LABS: BICARBONATE 29.6 MEQ/L (21.0-32.0); POTASSIUM 3.7 MEQ/L (3.5-5.1)
[2017-03-19 23:57] VITALS: PULSE 88; RESP 16; TEMP 99.6; O2SAT 97
[2017-03-20] MEDS ORDERED: CIPR-9 PO (01:27)
[2017-03-20] MEDS ORDERED: TRAM50TA PO (01:27)
== END 2017-03-20 01:40 | disposition home or self-care (01) ==
LOC: NEPC 21:16
DX: N12 Tubulo-interstitial nephritis, not specified as acute or chronic (principal); R50.9 Fever, unspecified; D72.829 Elevated white blood cell count, unspecified; D64.9 Anemia, unspecified; F41.9 Anxiety disorder, unspecified; F32.9 Major depressive disorder, single episode, unspecified; F17.210 Nicotine dependence, cigarettes, uncomplicated; Z79.899 Other long term (current) drug therapy; Z88.2 Allergy status to sulfonamides
CPT/HCPCS: 80048; 81001; 84703; 85025; 87077; 87086; 87186; 96374; 96375; 99284; J0696; J2405; J7030

== ENCOUNTER 2017-07-13 23:14 | Inpatient (IN) | payer SELFPAY ==
[~2017-07-13] VITALS: Ht 165.1 cm; Wt 60.0 kg
[~2017-07-13 23:14] MED LIST changes: +CIPR-9 PO; +TRAM50TA PO; -ZOFR4TAB PO
[2017-07-13 23:17] VITALS: BP 138/72; PULSE 114; RESP 20; TEMP 102.9; O2SAT 96
[2017-07-13] MEDS ORDERED: SODIUM CHLOR 0.9% 1000 ML INJ 1,000 ML IV ONE (23:58)
[2017-07-14] MEDS ORDERED: LEVOFLOXACIN 500 MG PREMIX INJ 100 ML IV ONE
[2017-07-14] MEDS ORDERED: KETOROLAC TROMETHAMINE 30 MG/ML (IVP) VIAL IV PUSH ONE
[2017-07-14] MEDS ORDERED: ONDANSETRON HCL 4 MG/2 ML VIAL IV PUSH ONE
--- NOTE | 2017-07-14 00:07 | PD ---
HPI Chief Complaint: Fever Time Seen by Provider: 23:51 Travel History International Travel<30 days: No Contact w/Intl Traveler<30days: No Traveled to known affect area: No History of Present Illness HPI SEEN AT [facility] AND DX WITH UTI AND GIVEN KEFLEX AND ZOFRAN....PATIENT STATES 4 DAYS OF N/V, AND BACK PAIN,...BACK PAIN CRAMPY, 7/10, NONRAD, FEVER, FOR PAST 4 DAYS. ALL: SULFA (HIVES) PMHX: KIDNEY INFECTION PSHX: NEG PFSH Past Medical History Anemia: Yes Anxiety: Yes Depression: Yes Cancer: No Cardiovascular Problems: No COPD: Yes (CHRONIC BRONCHITIS) Diabetes: No Diminished Hearing: No Endocrine: No Gastrointestinal Disorders: No Genitourinary: Yes Immune Disorder: No Implanted Vascular Access Dvce: No Kidney Stones: Yes Musculoskeletal: No Neurologic: No Reproductive: Yes (endometriosis) Respiratory: No Immunizations Current: No ?: Not LMP: 07/11/17 Menopausal: No : 0 Ovarian Cysts: Yes Past Surgical History Abdominal Surgery: No Cardiac Surgery: No Ear Surgery: No Endocrine Surgery: No Eye Surgery: No Genitourinary Surgery: No Gynecologic Surgery: No Neurologic Surgery: No Oral Surgery: No Thoracic Surgery: No Other Surgery: No Social History Alcohol Use: Yes (social once a week) Tobacco Use: Yes (2-3 cigs per day) Substance Use: No Allergies-Medications (Allergen,Severity, Reaction): Coded Allergies: Sulfa (Sulfonamide Antibiotics) (Unverified Allergy, Severe, HIVES, ) medroxyprogesterone (Unverified Allergy, Severe, HIVES, 07/13/17) Reported Meds & Prescriptions Reported Meds & Active Scripts Active Tramadol (Tramadol HCl) 50 Mg Tab 50 Mg PO Q6H PRN Cipro (Ciprofloxacin HCl) 500 Mg Tab 500 Mg PO BID Review of Systems Except as stated in HPI: all other systems reviewed are Neg General / Constitutional: Positive: Fever Genitourinary: Positive: Flank Pain Physical Exam Narrative GENERAL: SKIN: Warm and dry. HEAD: Atraumatic. Normocephalic. EYES: Pupils equal and round. No scleral icterus. No injection or drainage. ENT: No nasal bleeding or discharge. Mucous membranes pink and moist. NECK: Trachea midline. No JVD. CARDIOVASCULAR: Regular rate and rhythm. RESPIRATORY: No accessory muscle use. Clear to auscultation. Breath sounds equal bilaterally. GASTROINTESTINAL: Abdomen soft, non-tender, nondistended.....NO REBOUND/ GUARDING /RIGIDITY MUSCULOSKELETAL: Extremities without clubbing, cyanosis, or edema. No obvious deformities. NEUROLOGICAL: Awake and alert. No obvious cranial nerve deficits. Motor grossly within normal limits. Five out of 5 muscle strength in the arms and legs. Normal speech. PSYCHIATRIC: Appropriate mood and affect; insight and judgment normal. Data Data Last Documented VS Vital Signs Date Time Temp Pulse Resp B/P (MAP) Pulse Ox O2 Delivery O2 Flow Rate FiO2 07/13/17 23:17 102.9 114 20 138/72 (94) 96 Room Air Orders Orders Complete Blood Count With Diff (07/13/17 23:58) Comprehensive Metabolic Panel (07/13/17 23:58) Urinalysis - C+S If Indicated (07/13/17 23:58) Ct Abd/Pel W/O Iv Contrast (07/13/17 23:58) Ecg Monitoring (07/13/17 23:58) Iv Access Insert/Monitor (07/13/17 23:58) Ketorolac Inj (Toradol Inj) (07/14/17 00:00) Ondansetron Inj (Zofran Inj) (07/14/17 00:00) Sodium Chlor 0.9% 1000 Ml Inj (Ns 1000 M (07/13/17 23:58) Ed Urine Pregnancytest Poc (07/13/17 23:58) Levofloxacin 500 Mg Premix Inj (Levaquin (07/14/17 00:00) MDM Medical Decision Making Medical Screen Exam Complete: Yes Emergency Medical Condition: Yes Medical Record Reviewed: Yes Differential Diagnosis UTI V KIDNEY STONES V PYELONEPHRITIS V Manuelito Mora MD Jul 14, 2017 00:07
[2017-07-14 00:39] LABS: AUTOMATED NEUTROPHIL # 15.1 TH/MM3 (1.8-7.7); BASOPHIL # 0.1 TH/MM3 (0-0.2); BASOPHIL % 0.3 % (0.0-2.0); HEMATOCRIT 38.4 % (35.0-46.0); HEMO FLAGS DIFF FINAL; LYMPH % 5.5 % (9.0-44.0); LYMPHOCYTE # 0.9 TH/MM3 (1.0-4.8); MEAN CELL VOLUME 95.5 FL (80.0-100.0); MEAN CORPUSCULAR HEMOGLOBIN 32.1 PG (27.0-34.0); MEAN CORPUSCULAR HGB CONC 33.6 % (32.0-36.0); MONO % 5.7 % (0.0-8.0); NEUT % 88.5 % (16.0-70.0); PLATELET COUNT 308 TH/MM3 (150-450); RED BLOOD COUNT 4.03 MIL/MM3 (4.00-5.30); RED CELL DISTRIBUTION WIDTH 12.7 % (11.6-17.2); WHITE BLOOD COUNT 17.1 TH/MM3 (4.0-11.0)
[2017-07-14 01:00] LABS: ALT (GPT) 19 U/L (10-53); ANION GAP 10 MEQ/L (5-15); AST (GOT) 13 U/L (15-37); BICARBONATE 27.9 MEQ/L (21.0-32.0); BLOOD UREA NITROGEN 10 MG/DL (7-18); CHLORIDE 99 MEQ/L (98-107); GLOMERULAR FILTRATION RATE 97 ML/MIN (>89); POTASSIUM 3.1 MEQ/L (3.5-5.1); SODIUM (NA) 137 MEQ/L (136-145)
[2017-07-14 01:02] LABS: ALKALINE PHOSPHATASE 101 U/L (45-117); TOTAL BILIRUBIN ADULT 0.4 MG/DL (0.2-1.0)
--- NOTE | 2017-07-14 02:47 | RADRPT ---
EXAM DATE/TIME: 07/14/2017 02:03 [facility] COMPARISON: No previous studies available for comparison. INDICATIONS : Lower back pain with fever. ORAL CONTRAST: No oral contrast ingested. RADIATION DOSE: 13.28 CTDIvol (mGy) MEDICAL HISTORY : Renal calculi. Ovarian cysts. Endometriosis. SURGICAL HISTORY : None. ENCOUNTER: Initial ACUITY: 1 day PAIN SCALE: 5/10 LOCATION: Bilateral lower back TECHNIQUE: Volumetric scanning of the abdomen and pelvis was performed. Using automated exposure control and ad justment of the mA and/or kV according to patient size, radiation dose was kept as low as reasonably achievable to obtain optimal diagnostic quality images. DICOM format image data is available electro nically for review and comparison. FINDINGS: Examination of the lung bases demonstrates no abnormality. No pleural fluid is identified. No pulmona ry nodules are present. The liver and spleen are normal in size and no focal defects are identified. The adrenal glands are unremarkable. The gallbladder and pancreas are unremarkable. No intrahepatic o r extrahepatic ductal dilatation is seen. The right kidney is unremarkable. Left kidney is enlarged w ith left hydronephrosis and hydroureter to the level of a left adnexal cyst versus abscess. This citlalli ures 3.7 cm in diameter. No renal stone is identified. No abnormally enlarged inguinal or retroperitoneal lymph nodes are present. The bladder is unremarkab le. There is diverticulosis without evidence of diverticulitis. CONCLUSION: 1. Left hydronephrosis and hydroureter without stone. 2. Left adnexal cyst versus tubo-ovarian abscess which may be cause of the obstruction. Baltazar Garcia MD on July 14, 2017 at 2:39 Board Certified Radiologist. This report was verified electronically.
[2017-07-14] MEDS ORDERED: MORPHINE SULFATE 4 MG/ML INJ IV PUSH ONE (03:15)
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
[2017-07-14 04:37] LABS: BACTERIA, URINE MANY /hpf; BLOOD, URINE MOD (NEG); COMMENT (UR) CULTURE INDICATED; CULTURE IF INDICATED CULTURE INDICATED; GLUCOSE,URINE NEG (NEG); KETONE, URINE 40 mg/dL (NEG); MUCUS URINE FEW /lpf (OCC); NITRITE,URINE NEG (NEG); PH, URINE 5.5 (5.0-8.5); SQUAMOUS EPITHELIAL CELL URINE <1 /hpf (0-5); URINE COLOR YELLOW (YELLW/STRAW)
[2017-07-14] MEDS ORDERED: BISACODYL 10 MG SUPP RECTAL PRN (05:00)
[2017-07-14] MEDS ORDERED: SENNOSIDES 8.6 MG TAB PO PRN (05:00)
[2017-07-14] MEDS ORDERED: MAGNESIUM HYDROXIDE SUSP 30 ML CUP PO PRN (05:00)
[2017-07-14] MEDS ORDERED: SODIUM CHLORIDE 0.9% FLUSH 10 ML FLUSH IV FLUSH PRN (05:00)
[2017-07-14] MEDS ORDERED: ACETAMINOPHEN 325 MG TAB PO PRN (05:00)
[2017-07-14] MEDS ORDERED: LACTULOSE SYRUP 20 GM/30 ML CUP PO PRN (05:00)
--- NOTE | 2017-07-14 05:05 | HHI.HP ---
[facility] Primary Care Physician No Primary Care Physician Admission Diagnosis PYELONEPHRITIS/SIRS Diagnoses: (1) Sepsis Diagnosis: Principal (2) UTI (urinary tract infection) Diagnosis: Principal (3) Hypokalemia Diagnosis: Principal (4) Ovarian cyst Diagnosis: Principal Travel History International Travel<30 Days: No Contact w/Intl Traveler <30 Da: No Traveled to Known Affected Are: No History of Present Illness This is a 27-year-old female with no significant PMH who presented to the ER with complaints of abdominal pain in addition to nausea and vomiting x4 days. States she was seen at [facility] for similar symptoms, diagnosed w/ UTI and Rx Keflex/Zofran. Has been taking medications w/ no improvement, reports ongoing pain, nausea/vomiting and fever. On arrival, BP 138/72, HR 114, O2 sat 96% on RA, Temp 102.9. WBC 17.1. K+ 3.1. UA positive for UTI. CT Abd/Pelvis w/ left hydronephrosis and hydroureter without stone, left adnexal cyst versus tubo-ovarian abscess likely cause of obstruction. Pelvic US with no evidence of abscess or obstruction, 3 cm left ovarian cyst otherwise unremarkable. S/p Urine Culture and Levaquin in ER. Review of Systems Except as stated in HPI: all other systems reviewed are Neg ROS: 14 point review of systems otherwise negative. Past Family Social History Past Medical History PMH: None Past Surgical History PAST SURGICAL HISTORY: None Allergies: Coded Allergies: Sulfa (Sulfonamide Antibiotics) (Unverified Allergy, Severe, HIVES, ) medroxyprogesterone (Unverified Allergy, Severe, HIVES, 07/13/17) Family History PAST FAMILY HISTORY: Reviewed. No h/o DM or CAD Social History PAST SOCIAL HISTORY: Occasional alcohol. Positive for tobacco. Negative for drugs. Physical Exam Vital Signs Vital Signs Date Time Temp Pulse Resp B/P (MAP) Pulse Ox O2 Delivery O2 Flow Rate FiO2 07/14/17 03:22 16 07/14/17 02:25 16 10/15/17 23:17 102.9 114 20 138/72 (94) 96 Room Air Physical Exam PE: GENERAL: Pleasant young white female in no acute distress. HEENT: PERRLA, EOMI. No scleral icterus or conjunctival pallor. No lid lag or facial droop. CARDIOVASCULAR: Regular rate and rhythm. No obvious murmurs to auscultation. No chest tenderness to palpation. RESPIRATORY: No obvious rhonchi or wheezing. Clear to auscultation. Breath sounds equal bilaterally. GASTROINTESTINAL: Abdomen soft, non-tender, nondistended. BS normal. MUSCULOSKELETAL: Extremities without clubbing, cyanosis, or edema. No obvious deformities. NEUROLOGICAL: Awake, alert and oriented x4. No focal neurologic deficits. Moving both upper and lower extremities spontaneously. Laboratory Laboratory Tests Test 07/14/17 00:32 07/14/17 04:20 White Blood Count 17.1 Red Blood Count 4.03 Hemoglobin 12.9 Hematocrit 38.4 Mean Corpuscular Volume 95.5 Mean Corpuscular Hemoglobin 32.1 Mean Corpuscular Hemoglobin Concent 33.6 Red Cell Distribution Width 12.7 Platelet Count 308 Mean Platelet Volume 7.8 Neutrophils (%) (Auto) 88.5 Lymphocytes (%) (Auto) 5.5 Monocytes (%) (Auto) 5.7 Eosinophils (%) (Auto) 0.0 Basophils (%) (Auto) 0.3 Neutrophils # (Auto) 15.1 Lymphocytes # (Auto) 0.9 Monocytes # (Auto) 1.0 Eosinophils # (Auto) 0.0 Basophils # (Auto) 0.1 CBC Comment DIFF FINAL Differential Comment Blood Urea Nitrogen 10 Creatinine 0.73 Random Glucose 93 Total Protein 8.1 Albumin 3.7 Calcium Level 8.8 Alkaline Phosphatase 101 Aspartate Amino Transf (AST/SGOT) 13 Alanine Aminotransferase (ALT/SGPT) 19 Total Bilirubin 0.4 Sodium Level 137 Potassium Level 3.1 Chloride Level 99 Carbon Dioxide Level 27.9 Anion Gap 10 Estimat Glomerular Filtration Rate 97 Urine Color YELLOW Urine Turbidity HAZY Urine pH 5.5 Urine Specific [place] 1.016 Urine Protein 30 Urine Glucose (UA) NEG Urine Ketones 40 Urine Occult Blood MOD Urine Nitrite NEG Urine Bilirubin NEG Urine Urobilinogen LESS THAN 2.0 Urine Leukocyte Esterase LARGE Urine RBC 6 Urine WBC 41 Urine Squamous Epithelial Cells <1 Urine Bacteria MANY Urine Mucus FEW Microscopic Urinalysis Comment CULTURE INDICATED Date/Time Source Procedure Growth Status 07/14/17 04:20 Urine Random Urine Urine Culture Pending Received Result Diagram: 07/14/173107/14/1731 Caprini VTE Risk Assessment Caprini VTE Risk Assessment: No/Low Risk (score <= 1) Caprini Risk Assessment Model Point Value = 1 Point Value = 2 Point Value = 3 Point Value = 5 Age 41-60 Minor surgery BMI > 25 kg/m2 Swollen legs Varicose veins or History of unexplained or recurrent spontaneous Oral contraceptives or hormone replacement Sepsis (< 1 month) Serious lung disease, including pneumonia (< 1 month) Abnormal pulmonary function Acute myocardial infarction Congestive heart failure (< 1 month) History of inflammatory bowel disease Medical patient at bed rest Age 61-74 Arthroscopic surgery Major open surgery (> 45 min) Laparoscopic surgery (> 45 min) Malignancy Confined to bed (> 72 hours) Immobilizing plaster cast Central venous access Age >= 75 History of VTE Family history of VTE Factor V Leiden Prothrombin [id number] Lupus anticoagulant Anticardiolipin antibodies Elevated serum homocysteine Heparin-induced thrombocytopenia Other congenital or acquired thrombophilia Stroke (< 1 month) Elective arthroplasty Hip, pelvis, or leg fracture Acute spinal cord injury (< 1 month) Prophylaxis Regimen Total Risk Factor Score Risk Level Prophylaxis Regimen 0-1 Low Early ambulation 2 Moderate Order ONE of the following: *Sequential Compression Device (SCD) *Heparin 5000 units SQ BID 3-4 Higher Order ONE of the following medications: *Heparin 5000 units SQ TID *Enoxaparin/Lovenox 40 mg SQ daily (WT < 150 kg, CrCl > 30 mL/min) *Enoxaparin/Lovenox 30 mg SQ daily (WT < 150 kg, CrCl > 10-29 mL/min) *Enoxaparin/Lovenox 30 mg SQ BID (WT < 150 kg, CrCl > 30 mL/min) AND/OR *Sequential Compression Device (SCD) 5 or more Highest Order ONE of the following medications: *Heparin 5000 units SQ TID (Preferred with Epidurals) *Enoxaparin/Lovenox 40 mg SQ daily (WT < 150 kg, CrCl > 30 mL/min) *Enoxaparin/Lovenox 30 mg SQ daily (WT < 150 kg, CrCl > 10-29 mL/min) *Enoxaparin/Lovenox 30 mg SQ BID (WT < 150 kg, CrCl > 30 mL/min) AND *Sequential Compression Device (SCD) Assessment and Plan Problem List: (1) Sepsis ICD Code: A41.9 - Sepsis, unspecified organism (2) UTI (urinary tract infection) ICD Code: N39.0 - Urinary tract infection, site not specified (3) Hypokalemia ICD Code: E87.6 - Hypokalemia (4) Ovarian cyst ICD Code: N83.209 - Unspecified ovarian cyst, unspecified side Status: Acute Assessment and Plan A/P: 1. Sepsis: Temp 102.9, HR 114, WBC 17. Source-UTI. S/p Urine Culture and IV Levaquin. Follow up cultures, continue IV Abx. 2. UTI: U/a w/ UTI, +failed outpatient therapy, recently Rx Keflex for UTI at [facility] 4 days ago. Continue IV Abx as above, IVF for hydration. 3. Hypokalemia: K+ 3.1, will recheck and replace as needed. 4. Ovarian Cyst: CT Abd/Pelvis w/ hydronephrosis likely secondary to possible tubo-ovarian abscess vs cyst. Pelvic US w/ no obstruction, +3cm ovarian cyst, no evidence of tubo-ovarian abscess, images reviewed by me. 5. DVT Prophylaxis: SCD/Teds. 6. Social work for d/c planning as needed. 7. Case discussed w/ ER physician at length. Physician Certification 2 Midnight Certification Type: Admission for Inpatient Services Order for Inpatient Services The services are ordered in accordance with Medicare regulations or non- Medicare payer requirements, as applicable. In the case of services not specified as inpatient-only, they are appropriately provided as inpatient services in accordance with the 2-midnight benchmark. Estimated LOS (days): 2 days is the estimated time the patient will need to remain in the hospital, assuming treatment plan goals are met and no additional complications. Post-Hospital Plan: Not yet determined Yvrose Ham MD Jul 14, 2017 05:05
[2017-07-14] MEDS: SODIUM CHLOR 0.9% 1000 ML INJ 1,000 ML IV SCH ×2 (05:12→15:20)
[2017-07-14] MEDS: ONDANSETRON HCL 4 MG/2 ML VIAL IVP PRN ×2 (05:13→19:56)
[2017-07-14] MEDS: cefTRIAXone INJ 1,000 MG in SODIUM CHLORIDE 0.9% INJ 100 ML IV SCH (07:52)
[2017-07-14] MEDS: ACETAMINOPHEN/HYDROcodone 325 MG/5 MG TAB PO PRN ×2 (07:53→19:53)
[2017-07-14 07:57] VITALS: BP 120/73; PULSE 111; RESP 20; TEMP 99.6; O2SAT 97
[2017-07-14] MEDS: DOCUSATE SODIUM 50 MG/SENNA 8.6 MG TAB PO SCH ×2 (09:46→19:52)
[2017-07-14] MEDS: SODIUM CHLORIDE 0.9% FLUSH 10 ML FLUSH IV FLUSH SCH ×2 (09:46→19:51)
[2017-07-14] MEDS ORDERED: POTASSIUM CHLORIDE 20 MEQ CONTROLLED RELEASE TAB PO ONE (11:45)
--- NOTE | 2017-07-14 12:02 | HHI.PR ---
Subjective Remarks This is a pleasant 27 year old female patient with a past medical history which includes kidney stone at 20 years old and frequent recurrent pyelonephritis. Patient reports pyelonephritis approximately 2-3 times a year. Patient started with N/V initially concerned for was seen at [facility] Dx: with UTI DC with Keflex and Zofran. Patient started having fevers and back pain Friday which progressively worsened therefore presented to [place] [facility]. Patient reports that she typically does not get dysuria with her UTI/pyelonephritis. Patient's typical symptoms of pyelonephritis include N/V, fevers, back pain and noticing a darker urine. Patient reports no correlation with intercourse. She has gotten UTI without recent intercourse. Patient denies diarrhea recently. Patient denies FMH including Chron's or Ulcerative colitis. Objective Vitals Vital Signs Date Time Temp Pulse Resp B/P (MAP) Pulse Ox O2 Delivery O2 Flow Rate FiO2 07/14/17 07:57 99.6 111 20 120/73 (89) 97 Room Air 07/14/17 03:22 16 07/14/17 02:25 16 07/13/17 23:17 102.9 114 20 138/72 (94) 96 Room Air Result Diagram: 07/14/17 0032 07/14/17 0032 Other Results Laboratory Tests Test 07/14/17 00:32 07/14/17 04:20 White Blood Count 17.1 TH/MM3 Red Blood Count 4.03 MIL/MM3 Hemoglobin 12.9 GM/DL Hematocrit 38.4 % Mean Corpuscular Volume 95.5 FL Mean Corpuscular Hemoglobin 32.1 PG Mean Corpuscular Hemoglobin Concent 33.6 % Red Cell Distribution Width 12.7 % Platelet Count 308 TH/MM3 Mean Platelet Volume 7.8 FL Neutrophils (%) (Auto) 88.5 % Lymphocytes (%) (Auto) 5.5 % Monocytes (%) (Auto) 5.7 % Eosinophils (%) (Auto) 0.0 % Basophils (%) (Auto) 0.3 % Neutrophils # (Auto) 15.1 TH/MM3 Lymphocytes # (Auto) 0.9 TH/MM3 Monocytes # (Auto) 1.0 TH/MM3 Eosinophils # (Auto) 0.0 TH/MM3 Basophils # (Auto) 0.1 TH/MM3 CBC Comment DIFF FINAL Differential Comment Blood Urea Nitrogen 10 MG/DL Creatinine 0.73 MG/DL Random Glucose 93 MG/DL Total Protein 8.1 GM/DL Albumin 3.7 GM/DL Calcium Level 8.8 MG/DL Alkaline Phosphatase 101 U/L Aspartate Amino Transf (AST/SGOT) 13 U/L Alanine Aminotransferase (ALT/SGPT) 19 U/L Total Bilirubin 0.4 MG/DL Sodium Level 137 MEQ/L Potassium Level 3.1 MEQ/L Chloride Level 99 MEQ/L Carbon Dioxide Level 27.9 MEQ/L Anion Gap 10 MEQ/L Estimat Glomerular Filtration Rate 97 ML/MIN Urine Color YELLOW Urine Turbidity HAZY Urine pH 5.5 Urine Specific [place] 1.016 Urine Protein 30 mg/dL Urine Glucose (UA) NEG mg/dL Urine Ketones 40 mg/dL Urine Occult Blood MOD Urine Nitrite NEG Urine Bilirubin NEG Urine Urobilinogen LESS THAN 2.0 MG/DL Urine Leukocyte Esterase LARGE Urine RBC 6 /hpf Urine WBC 41 /hpf Urine Squamous Epithelial Cells <1 /hpf Urine Bacteria MANY /hpf Urine Mucus FEW /lpf Microscopic Urinalysis Comment CULTURE INDICATED Imaging Last Impressions Pelvis Ultrasound 07/14/17 0251 Signed Impressions: Service Date/Time: Friday, July 14, 2017 04:00 - CONCLUSION: 1. 3 cm left ovarian cyst otherwise unremarkable Baltazar Garcia MD Abdomen/Pelvis CT 07/13/17 3615 Signed Impressions: Service Date/Time: Friday, July 14, 2017 02:03 - CONCLUSION: 1. Left hydronephrosis and hydroureter without stone. 2. Left adnexal cyst versus tubo-ovarian abscess which may be cause of the obstruction. Baltazar Garcia MD Objective Remarks GENERAL: 27 year old female in no acute distress CARDIOVASCULAR: Regular rate and rhythm. RESPIRATORY: Clear to auscultation GASTROINTESTINAL: Abdomen soft, non-tender, nondistended. GENITOURINARY: bilateral CVA tenderness worse on the left MUSCULOSKELETAL: Extremities without clubbing, cyanosis, or edema. No obvious deformities. NEUROLOGICAL: Awake, alert and oriented x4. No focal neurologic deficits. Moving both upper and lower extremities spontaneously. A/P Problem List: (1) Pyelonephritis ICD Codes: N12 - Tubulo-interstitial nephritis, not specified as acute or chronic Status: Acute Plan: Recurrent Pyelonephritis: Patient reports pyelonephritis approximately 2-3 times a year. Patient reports that she typically does not get dysuria with her UTI/pyelonephritis. Patient's typical symptoms of pyelonephritis include N/V, fevers, back pain and noticing a darker urine. Patient reports no correlation with intercourse. She has gotten UTI without recent intercourse. Patient denies diarrhea recently. follow urine cultures recently failed outpatient therapy, recently Rx Keflex for UTI at [facility] 4 days ago. Continue IV Ceftriaxone [address] abdomen/Pelvic Left hydronephrosis and hydroureter without stone. Left adnexal cyst versus tubo-ovarian abscess which may be cause of the obstruction IVF for hydration. Will consult Urology Hypokalemia: K+ 3.1 replaced recheck BMP in AM Ovarian Cyst: Pelvic US 3cm left ovarian cyst otherwise unremarkable DVT Prophylaxis: SCD/Teds. (2) UTI (urinary tract infection) ICD Codes: N39.0 - Urinary tract infection, site not specified (3) Hypokalemia ICD Codes: E87.6 - Hypokalemia (4) Ovarian cyst ICD Codes: N83.209 - Unspecified ovarian cyst, unspecified side Status: Acute Assessment and Plan Patient examined. Assessment and plan formulated with Richelle Mcdaniels PA-C. I agree with the above. recurrent ecoli pylo. ct shows hydroureter/hydronephrosis on the left and ?adjacent ovarian cyst..?external compression. cont abx. consult urology to eval hydro and recurrent uti's. Richelle Mcdaniels Jul 14, 2017 12:02 Guero Kidd MD Jul 14, 2017 15:44
[2017-07-14] MEDS: MORPHINE SULFATE 4 MG/ML INJ IV PUSH PRN (13:39)
[2017-07-14 16:00] VITALS: BP 118/70; PULSE 102; RESP 19; TEMP 99.9; O2SAT 96
--- NOTE | 2017-07-14 16:16 | PD.CONS ---
HPI Service Urology Consult Requested By Reason for Consult Hydronephrosis, UTI Primary Care Physician No Primary Care Physician Diagnosis: (1) Pyelonephritis ICD Code: N12 - Tubulo-interstitial nephritis, not specified as acute or chronic (2) UTI (urinary tract infection) ICD Code: N39.0 - Urinary tract infection, site not specified (3) Hypokalemia ICD Code: E87.6 - Hypokalemia (4) Ovarian cyst ICD Code: N83.209 - Unspecified ovarian cyst, unspecified side History of Present Illness 27yo female with history of recurrent UTIs admitted with due to fevers and concern for pyelonephritis. CT scan revealed left hydronephrosis, however no obvious stone or obstruction noted. Patient also has what appears to be a possible tubo-ovarian abscess, which may be causing the left ureteral obstruction. Fevers as high as 102.9. She reports current left flank pain. She states a history of recurrent infections for the last few years, however only one previous infection similar to this episode. No infections as a child. No history of kidney stones. Review of Systems ROS Limitations: Clinical Condition Constitutional: COMPLAINS OF: Fever Eyes: DENIES: Vision loss Ears, nose, mouth, throat: DENIES: Tinnitus Respiratory: DENIES: Apneas Cardiovascular: DENIES: Chest pain Gastrointestinal: COMPLAINS OF: Abdominal pain, Nausea, DENIES: Vomiting Genitourinary: COMPLAINS OF: Dysuria, DENIES: Urinary incontinence Musculoskeletal: COMPLAINS OF: Back pain Integumentary: DENIES: Abnormal pigmentation Hematologic/lymphatic: DENIES: Bruising Immunologic/allergic: DENIES: Eczema Neurologic: DENIES: Abnormal gait Psychiatric: DENIES: Anxiety Except as stated in HPI: all other systems reviewed are Neg Past Family Social History Past Medical History None Past Surgical History None Reported Medications Reported Meds & Active Scripts Active Allergies: Coded Allergies: Sulfa (Sulfonamide Antibiotics) (Unverified Allergy, Severe, HIVES, ) medroxyprogesterone (Unverified Allergy, Severe, HIVES, 07/13/17) Active Ordered Medications Current Medications Medications (Trade) Dose Ordered Sig/Justina Route Start Time Stop Time Status Last Admin Ceftriaxone Sodium 1000 mg/ Sodium Chloride 100 ml @ 200 mls/hr Q24H IV 07/14/17 09:00 07/14/17 07:52 Sodium Chloride 1,000 ml @ 100 mls/hr Q10H IV 07/14/17 04:55 07/14/17 15:20 (NS Flush) 2 ml UNSCH PRN IV FLUSH 07/14/17 05:00 (NS Flush) 2 ml BID IV FLUSH 07/14/17 09:00 07/14/17 09:46 (Zofran Inj) 4 mg Q6H PRN IVP 07/14/17 05:00 07/14/17 05:13 (Tylenol) 650 mg Q6H PRN PO 07/14/17 05:00 ([place] 5-325 Mg) 1 tab Q4H PRN PO 07/14/17 05:00 07/14/17 07:53 (Morphine Inj) 2 mg Q3H PRN IV PUSH 07/14/17 05:00 07/14/17 13:39 (Mckenzie-Colace) 1 tab BID PO 07/14/17 09:00 07/14/17 09:46 (Milk Of Magnesia Liq) 30 ml Q12H PRN PO 07/14/17 05:00 (Senokot) 17.2 mg Q12H PRN PO 07/14/17 05:00 (Dulcolax Supp) 10 mg DAILY PRN RECTAL 07/14/17 05:00 (Lactulose Liq) 30 ml DAILY PRN PO 07/14/17 05:00 Family History Family history reviewed and noncontributory to present illness Social History Patient reports Occasional alcohol and tobacco use. Denies other drugs Physical Exam Vital Signs Date Time Temp Pulse Resp B/P (MAP) Pulse Ox O2 Delivery O2 Flow Rate FiO2 07/14/17 14:00 07/14/17 07:57 99.6 111 20 120/73 (89) 97 Room Air 07/14/17 03:22 16 07/14/17 02:25 16 07/13/17 23:17 102.9 114 20 138/72 (94) 96 Room Air Physical Exam GENERAL: This is a well-nourished, well-developed patient, in no apparent distress. SKIN: No rashes, ecchymoses or lesions. Cool and dry. HEAD: Atraumatic. Normocephalic. EYES: Extraocular motions intact. No scleral icterus. No injection or drainage. ENT: Nose without bleeding, purulent drainage. Airway patent. NECK: Trachea midline. CARDIOVASCULAR: Taniya pulses, extremities well perfused RESPIRATORY: Nonlabored, equal chest rise GASTROINTESTINAL: Abdomen nondistended. MUSCULOSKELETAL: Extremities without clubbing, cyanosis, or edema. NEUROLOGICAL: Awake and alert. Motor and sensory grossly within normal limits. Normal speech. Lab results reviewed: Yes Laboratory Tests Test 07/14/17 00:32 07/14/17 04:20 White Blood Count 17.1 Red Blood Count 4.03 Hemoglobin 12.9 Hematocrit 38.4 Mean Corpuscular Volume 95.5 Mean Corpuscular Hemoglobin 32.1 Mean Corpuscular Hemoglobin Concent 33.6 Red Cell Distribution Width 12.7 Platelet Count 308 Mean Platelet Volume 7.8 Neutrophils (%) (Auto) 88.5 Lymphocytes (%) (Auto) 5.5 Monocytes (%) (Auto) 5.7 Eosinophils (%) (Auto) 0.0 Basophils (%) (Auto) 0.3 Neutrophils # (Auto) 15.1 Lymphocytes # (Auto) 0.9 Monocytes # (Auto) 1.0 Eosinophils # (Auto) 0.0 Basophils # (Auto) 0.1 CBC Comment DIFF FINAL Differential Comment Blood Urea Nitrogen 10 Creatinine 0.73 Random Glucose 93 Total Protein 8.1 Albumin 3.7 Calcium Level 8.8 Alkaline Phosphatase 101 Aspartate Amino Transf (AST/SGOT) 13 Alanine Aminotransferase (ALT/SGPT) 19 Total Bilirubin 0.4 Sodium Level 137 Potassium Level 3.1 Chloride Level 99 Carbon Dioxide Level 27.9 Anion Gap 10 Estimat Glomerular Filtration Rate 97 Urine Color YELLOW Urine Turbidity HAZY Urine pH 5.5 Urine Specific [place] 1.016 Urine Protein 30 Urine Glucose (UA) NEG Urine Ketones 40 Urine Occult Blood MOD Urine Nitrite NEG Urine Bilirubin NEG Urine Urobilinogen LESS THAN 2.0 Urine Leukocyte Esterase LARGE Urine RBC 6 Urine WBC 41 Urine Squamous Epithelial Cells <1 Urine Bacteria MANY Urine Mucus FEW Microscopic Urinalysis Comment CULTURE INDICATED Date/Time Source Procedure Growth Status 07/14/17 04:20 Urine Random Urine Urine Culture Pending Received Result Diagram: 07/14/17 0032 07/14/17 0032 Personally reviewed images: Yes Imaging Last Impressions Pelvis Ultrasound 07/14/17 0251 Signed Impressions: Service Date/Time: Friday, July 14, 2017 04:00 - CONCLUSION: 1. 3 cm left ovarian cyst otherwise unremarkable Baltazar Garcia MD Abdomen/Pelvis CT 07/13/17 1581 Signed Impressions: Service Date/Time: Friday, July 14, 2017 02:03 - CONCLUSION: 1. Left hydronephrosis and hydroureter without stone. 2. Left adnexal cyst versus tubo-ovarian abscess which may be cause of the obstruction. Baltazar Garcia MD Assessment and Plan Problem List: (1) UTI (urinary tract infection) ICD Code: N39.0 - Urinary tract infection, site not specified (2) Pyelonephritis ICD Code: N12 - Tubulo-interstitial nephritis, not specified as acute or chronic Status: Acute Assessment and Plan -CT images personally reviewed. Left hydronephrosis noted, no obvious stone or stricture identified. Iron travels down to distal ureter to location of the questionable tubo-ovarian abscess vs cyst. This may be cause of obstruction, however unclear. -At this time the patient appears comfortable, fevers improved -Continue antibiotics -Recommend Renal scan to identify any possible obstruction of the left kidney -If obstruction is confirmed, patient would either need treatment of this tubo- ovarian abscess/cyst vs drainage of the left collecting system -Given the likelihood of extrinsic compression from a pelvic process as the possible cause of the left hydronephrosis, a left nephrostomy tube would be recommended if real scan confirms obstruction -Will follow. Darion Ojeda MD Jul 14, 2017 16:16
[2017-07-14 20:00] VITALS: BP 120/69; PULSE 112; RESP 20; TEMP 100.9; O2SAT 100
[2017-07-15] MEDS: MORPHINE SULFATE 4 MG/ML INJ IV PUSH PRN ×5 (00:17→23:26)
[2017-07-15] MEDS: SODIUM CHLOR 0.9% 1000 ML INJ 1,000 ML IV SCH ×2 (00:17→09:45)
[2017-07-15 01:45] VITALS: BP 116/76; PULSE 87; RESP 20; TEMP 99.4; O2SAT 97
[2017-07-15 07:01] LABS: AUTOMATED NEUTROPHIL # 7.1 TH/MM3 (1.8-7.7); BASOPHIL % 0.2 % (0.0-2.0); EOSINOPHIL % 0.5 % (0.0-4.0); HEMATOCRIT 31.4 % (35.0-46.0); HEMO FLAGS DIFF FINAL; LYMPH % 14.4 % (9.0-44.0); LYMPHOCYTE # 1.4 TH/MM3 (1.0-4.8); MEAN CELL VOLUME 95.6 FL (80.0-100.0); MEAN CORPUSCULAR HEMOGLOBIN 32.5 PG (27.0-34.0); MONO % 9.9 % (0.0-8.0); PLATELET COUNT 255 TH/MM3 (150-450); RED BLOOD COUNT 3.28 MIL/MM3 (4.00-5.30); RED CELL DISTRIBUTION WIDTH 12.8 % (11.6-17.2); WHITE BLOOD COUNT 9.5 TH/MM3 (4.0-11.0)
[2017-07-15 07:37] LABS: ALKALINE PHOSPHATASE 82 U/L (45-117); ALT (GPT) 24 U/L (10-53); ANION GAP 10 MEQ/L (5-15); AST (GOT) 22 U/L (15-37); BICARBONATE 24.4 MEQ/L (21.0-32.0); BLOOD UREA NITROGEN 3 MG/DL (7-18); CHLORIDE 104 MEQ/L (98-107); GLOMERULAR FILTRATION RATE 135 ML/MIN (>89); POTASSIUM 3.4 MEQ/L (3.5-5.1); SODIUM (NA) 138 MEQ/L (136-145); TOTAL BILIRUBIN ADULT 0.2 MG/DL (0.2-1.0)
[2017-07-15 08:03] VITALS: BP 110/64; PULSE 80; RESP 20; TEMP 98.3; O2SAT 99
[2017-07-15] MEDS: SODIUM CHLORIDE 0.9% FLUSH 10 ML FLUSH IV FLUSH SCH ×2 (09:00→21:00)
[2017-07-15] MEDS: DOCUSATE SODIUM 50 MG/SENNA 8.6 MG TAB PO SCH ×2 (09:00→21:00)
[2017-07-15] MEDS: cefTRIAXone INJ 1,000 MG in SODIUM CHLORIDE 0.9% INJ 100 ML IV SCH (09:42)
[2017-07-15] MEDS ORDERED: INFLUENZA VIRUS VACCINE (QUADRIVALENT) 0.5 ML SYR IM ONE (10:00)
[2017-07-15] MEDS ORDERED: POTASSIUM CHLORIDE 20 MEQ CONTROLLED RELEASE TAB PO ONE (10:30)
--- NOTE | 2017-07-15 10:32 | HHI.PR ---
Subjective Remarks Patient resting in bed reports headache has resolved lower back pain still present but better than yesterday Objective Vitals Vital Signs Date Time Temp Pulse Resp B/P (MAP) Pulse Ox O2 Delivery O2 Flow Rate FiO2 07/15/17 08:03 98.3 80 20 110/64 (79) 99 07/15/17 01:45 99.4 87 20 116/76 (89) 97 07/14/17 20:00 100.9 112 20 120/69 (86) 100 07/14/17 16:00 99.9 102 19 118/70 (86) 96 07/14/17 14:00 07/15/17 07/15/17 07/16/17 15:00 23:00 07:00 Intake Total 120 ml Balance 120 ml Intake Oral 120 ml Result Diagram: 07/15/1762407/15/17624 Other Results Laboratory Tests Test 07/14/17 00:32 07/14/17 04:20 07/15/17 06:25 White Blood Count 17.1 TH/MM3 9.5 TH/MM3 Red Blood Count 4.03 MIL/MM3 3.28 MIL/MM3 Hemoglobin 12.9 GM/DL 10.7 GM/DL Hematocrit 38.4 % 31.4 % Mean Corpuscular Volume 95.5 FL 95.6 FL Mean Corpuscular Hemoglobin 32.1 PG 32.5 PG Mean Corpuscular Hemoglobin Concent 33.6 % 34.0 % Red Cell Distribution Width 12.7 % 12.8 % Platelet Count 308 TH/MM3 255 TH/MM3 Mean Platelet Volume 7.8 FL 7.9 FL Neutrophils (%) (Auto) 88.5 % 75.0 % Lymphocytes (%) (Auto) 5.5 % 14.4 % Monocytes (%) (Auto) 5.7 % 9.9 % Eosinophils (%) (Auto) 0.0 % 0.5 % Basophils (%) (Auto) 0.3 % 0.2 % Neutrophils # (Auto) 15.1 TH/MM3 7.1 TH/MM3 Lymphocytes # (Auto) 0.9 TH/MM3 1.4 TH/MM3 Monocytes # (Auto) 1.0 TH/MM3 0.9 TH/MM3 Eosinophils # (Auto) 0.0 TH/MM3 0.0 TH/MM3 Basophils # (Auto) 0.1 TH/MM3 0.0 TH/MM3 CBC Comment DIFF FINAL DIFF FINAL Differential Comment Blood Urea Nitrogen 10 MG/DL 3 MG/DL Creatinine 0.73 MG/DL 0.55 MG/DL Random Glucose 93 MG/DL 121 MG/DL Total Protein 8.1 GM/DL 6.0 GM/DL Albumin 3.7 GM/DL 2.5 GM/DL Calcium Level 8.8 MG/DL 8.2 MG/DL Alkaline Phosphatase 101 U/L 82 U/L Aspartate Amino Transf (AST/SGOT) 13 U/L 22 U/L Alanine Aminotransferase (ALT/SGPT) 19 U/L 24 U/L Total Bilirubin 0.4 MG/DL 0.2 MG/DL Sodium Level 137 MEQ/L 138 MEQ/L Potassium Level 3.1 MEQ/L 3.4 MEQ/L Chloride Level 99 MEQ/L 104 MEQ/L Carbon Dioxide Level 27.9 MEQ/L 24.4 MEQ/L Anion Gap 10 MEQ/L 10 MEQ/L Estimat Glomerular Filtration Rate 97 ML/MIN 135 ML/MIN Urine Color YELLOW Urine Turbidity HAZY Urine pH 5.5 Urine Specific [place] 1.016 Urine Protein 30 mg/dL Urine Glucose (UA) NEG mg/dL Urine Ketones 40 mg/dL Urine Occult Blood MOD Urine Nitrite NEG Urine Bilirubin NEG Urine Urobilinogen LESS THAN 2.0 MG/DL Urine Leukocyte Esterase LARGE Urine RBC 6 /hpf Urine WBC 41 /hpf Urine Squamous Epithelial Cells <1 /hpf Urine Bacteria MANY /hpf Urine Mucus FEW /lpf Microscopic Urinalysis Comment CULTURE INDICATED Lactic Acid Level 1.2 mmol/L Imaging Last Impressions Pelvis Ultrasound 07/14/17 0251 Signed Impressions: Service Date/Time: Friday, July 14, 2017 04:00 - CONCLUSION: 1. 3 cm left ovarian cyst otherwise unremarkable Baltazar Garcia MD Abdomen/Pelvis CT 07/13/17 4428 Signed Impressions: Service Date/Time: Friday, July 14, 2017 02:03 - CONCLUSION: 1. Left hydronephrosis and hydroureter without stone. 2. Left adnexal cyst versus tubo-ovarian abscess which may be cause of the obstruction. Baltazar Garcia MD Objective Remarks GENERAL: 27 year old female in no acute distress CARDIOVASCULAR: Regular rate and rhythm. RESPIRATORY: Clear to auscultation GASTROINTESTINAL: Abdomen soft, non-tender, nondistended. GENITOURINARY: bilateral CVA tenderness improving MUSCULOSKELETAL: Extremities without clubbing, cyanosis, or edema. No obvious deformities. NEUROLOGICAL: Awake, alert and oriented x4. No focal neurologic deficits. Moving both upper and lower extremities spontaneously. A/P Problem List: (1) Pyelonephritis ICD Codes: N12 - Tubulo-interstitial nephritis, not specified as acute or chronic Status: Acute Plan: Recurrent Pyelonephritis: Patient reports pyelonephritis approximately 2-3 times a year. Patient reports that she typically does not get dysuria with her UTI/pyelonephritis. Patient's typical symptoms of pyelonephritis include N/V, fevers, back pain and noticing a darker urine. Patient reports no correlation with intercourse. She has gotten UTI without recent intercourse. Patient denies diarrhea recently. follow urine cultures recently failed outpatient therapy, recently Rx Keflex for UTI at [facility] 4 days ago. WBC improving 17.1 -> 9.5 24 hour T max 100.9 Continue IV Ceftriaxone [address] abdomen/Pelvic Left hydronephrosis and hydroureter without stone. Left adnexal cyst versus tubo-ovarian abscess which may be cause of the obstruction continue IVF for hydration. Consult Urology, appreciate input. Urology recommending renal scan to identify any possible obstruction of the left kidney possible left nephrostomy tube renal scan confirms obstruction Hypokalemia: K+ 3.1 -> 3.4 replace recheck BMP in AM Ovarian Cyst: Pelvic US 3cm left ovarian cyst otherwise unremarkable DVT Prophylaxis: SCD/Teds. (2) UTI (urinary tract infection) ICD Codes: N39.0 - Urinary tract infection, site not specified (3) Hypokalemia ICD Codes: E87.6 - Hypokalemia (4) Ovarian cyst ICD Codes: N83.209 - Unspecified ovarian cyst, unspecified side Status: Acute Assessment and Plan Patient examined. Assessment and plan formulated with Richelle Mcdaniels PA-C. I agree with the above. pylo. hydroureter/nephrosis on left...?external compression f/u renal scan. Urology following cont abx. f/u cx. Richelle Mcdaniels Jul 15, 2017 10:32 Guero Kidd MD Jul 15, 2017 12:04
[2017-07-15] MEDS ORDERED: FUROSEMIDE 40 MG/4 ML VIAL ONE (11:19)
[2017-07-15 12:00] VITALS: BP 121/78; PULSE 77; RESP 18; TEMP 97.6; O2SAT 96
--- NOTE | 2017-07-15 13:18 | RADRPT ---
EXAM DATE/TIME: 07/15/2017 09:02 [place] COMPARISON: CT ABDOMEN & PELVIS W/O CONTRAST, July 14, 2017, 2:03. INDICATIONS : Back and bilateral flank pain with nausea and vomiting. Obstruction. DOSE: 20.7 mCi Tc99m DTPA IV MEDICATION: 40 mg Lasix IV MEDICAL HISTORY : None SURGICAL HISTORY : None. ENCOUNTER: Initial ACUITY: 4 - 6 days PAIN SCALE: 7/10 LOCATION: Bilateral posterior back. TECHNIQUE: Dynamic images were performed in the posterior projection for a total of 28 minutes. FINDINGS: FLOW: There is symmetric arrival of bolus to both kidneys. There is homogeneous perfusion to both kidneys. EXCRETION: There is normal renal cortical transit time and normal rate of washout from the parenchyma of the rig ht kidney. There is delayed excretion by the left collecting system. However, following Lasix there i s good drainage of the left collecting system. This suggests a boggy left collecting system.. CONCLUSION: 1. Boggy left collecting system with drainage following Lasix. No definite mechanical obstruction. 2. The right collecting system is unremarkable. Kumar Hampton MD on July 15, 2017 at 13:12 Board Certified Radiologist. This report was verified electronically.
--- NOTE | 2017-07-15 18:27 | HHI.PR ---
Subjective Patient symptoms today Doing well, pain improved. WBC improved. Renal scan with no obvious obstruction Objective Vital Signs Vital Signs Date Time Temp Pulse Resp B/P (MAP) Pulse Ox O2 Delivery O2 Flow Rate FiO2 07/15/17 12:00 97.6 77 18 121/78 (92) 96 07/15/17 08:03 98.3 80 20 110/64 (79) 99 07/15/17 01:45 99.4 87 20 116/76 (89) 97 07/14/17 20:00 100.9 112 20 120/69 (86) 100 Intake & Output 07/15/17 07/15/17 07:00 19:00 Intake Total 2396 ml 1120 ml Output Total 1200 ml Balance 2396 ml -80 ml Intake Oral 1120 ml IV Total 2396 ml Output Urine Total 1200 ml # Bowel Movements 1 Result Diagram: 07/15/17 0625 07/15/17 06 Imaging Last 24 hours Impressions Renal Scan w/Medication NM 07/15/17 0000 Signed Impressions: Service Date/Time: Saturday, July 15, 2017 09:02 - CONCLUSION: 1. Boggy left collecting system with drainage following Lasix. No definite mechanical obstruction. 2. The right collecting system is unremarkable. Kumar Hampton MD Objective Remarks NAD, AAOx3 Resp NL Ab Nondistended Ext No edema Medications and IVs Current Medications Medications (Trade) Dose Ordered Sig/Justina Route Start Time Stop Time Status Last Admin Ceftriaxone Sodium 1000 mg/ Sodium Chloride 100 ml @ 200 mls/hr Q24H IV 07/14/17 09:00 07/15/17 09:42 Sodium Chloride 1,000 ml @ 100 mls/hr Q10H IV 07/14/17 04:55 07/15/17 09:45 (NS Flush) 2 ml UNSCH PRN IV FLUSH 07/14/17 05:00 (NS Flush) 2 ml BID IV FLUSH 07/14/17 09:00 07/14/17 19:51 (Zofran Inj) 4 mg Q6H PRN IVP 07/14/17 05:00 07/14/17 19:56 (Tylenol) 650 mg Q6H PRN PO 07/14/17 05:00 07/15/17 05:06 ([place] 5-325 Mg) 1 tab Q4H PRN PO 07/14/17 05:00 07/14/17 19:53 (Morphine Inj) 2 mg Q3H PRN IV PUSH 07/14/17 05:00 07/15/17 15:18 (Mckenzie-Colace) 1 tab BID PO 07/14/17 09:00 07/14/17 09:46 (Milk Of Magnesia Liq) 30 ml Q12H PRN PO 07/14/17 05:00 (Senokot) 17.2 mg Q12H PRN PO 07/14/17 05:00 (Dulcolax Supp) 10 mg DAILY PRN RECTAL 07/14/17 05:00 (Lactulose Liq) 30 ml DAILY PRN PO 07/14/17 05:00 Assessment and Plan Problem List: (1) UTI (urinary tract infection) ICD Code: N39.0 - Urinary tract infection, site not specified (2) Pyelonephritis ICD Code: N12 - Tubulo-interstitial nephritis, not specified as acute or chronic Status: Acute Assessment and Plan -Renal scan with no evidence of obstruction, left renal unit draining well, normal right collecting system -At this time, no urological intervention indicated. No need for nephrostomy tube or stent -Patient will need continued Urology follow-up as outpatient with [facility] for further management of her recurrent UTIs and possible intermitted left ureteral obstruction as this is unclear -Please call with questions Darion Ojeda MD Jul 15, 2017 18:27
[2017-07-15 20:00] VITALS: BP 119/78; PULSE 77; RESP 18; TEMP 98.6; O2SAT 97
[2017-07-16 00:50] VITALS: BP 125/72; PULSE 77; RESP 18; TEMP 98.4; O2SAT 96
[2017-07-16] MEDS: SODIUM CHLOR 0.9% 1000 ML INJ 1,000 ML IV SCH ×2 (02:10→10:26)
[2017-07-16 04:58] VITALS: BP 109/67; PULSE 83; RESP 18; TEMP 98; O2SAT 96
[2017-07-16 08:00] VITALS: BP 106/55; PULSE 80; RESP 20; TEMP 97.3; O2SAT 97
[2017-07-16] MEDS: SODIUM CHLORIDE 0.9% FLUSH 10 ML FLUSH IV FLUSH SCH (09:00)
[2017-07-16] MEDS: DOCUSATE SODIUM 50 MG/SENNA 8.6 MG TAB PO SCH (09:00)
[2017-07-16] MEDS: cefTRIAXone INJ 1,000 MG in SODIUM CHLORIDE 0.9% INJ 100 ML IV SCH (10:26)
[2017-07-16] MEDS: ONDANSETRON HCL 4 MG/2 ML VIAL IVP PRN (10:36)
--- NOTE | 2017-07-16 11:00 | HHI.PR ---
Subjective Remarks Patient is anxious to go home She is still nauseated but no vomiting Reports that her pain is slightly better but she is still "not feeling great" She reports that she has difficulty completing antibiotic treatments because she forgets to take the medications and will only generally take the medication for maybe 2-3 days and then quit Objective Vitals Vital Signs Date Time Temp Pulse Resp B/P (MAP) Pulse Ox O2 Delivery O2 Flow Rate FiO2 07/16/17 08:00 97.3 80 20 106/55 (72) 97 07/16/17 04:58 98.0 83 18 109/67 (81) 96 07/16/17 00:50 98.4 77 18 125/72 (89) 96 07/15/17 20:00 98.6 77 18 119/78 (92) 97 07/15/17 12:00 97.6 77 18 121/78 (92) 96 07/16/17 07/16/17 07/17/17 15:00 23:00 07:00 Intake Total 120 ml Balance 120 ml Intake Oral 120 ml Result Diagram: 07/15/1762407/15/17624 Other Results Laboratory Tests Test 07/15/17 06:25 White Blood Count 9.5 TH/MM3 Red Blood Count 3.28 MIL/MM3 Hemoglobin 10.7 GM/DL Hematocrit 31.4 % Mean Corpuscular Volume 95.6 FL Mean Corpuscular Hemoglobin 32.5 PG Mean Corpuscular Hemoglobin Concent 34.0 % Red Cell Distribution Width 12.8 % Platelet Count 255 TH/MM3 Mean Platelet Volume 7.9 FL Neutrophils (%) (Auto) 75.0 % Lymphocytes (%) (Auto) 14.4 % Monocytes (%) (Auto) 9.9 % Eosinophils (%) (Auto) 0.5 % Basophils (%) (Auto) 0.2 % Neutrophils # (Auto) 7.1 TH/MM3 Lymphocytes # (Auto) 1.4 TH/MM3 Monocytes # (Auto) 0.9 TH/MM3 Eosinophils # (Auto) 0.0 TH/MM3 Basophils # (Auto) 0.0 TH/MM3 CBC Comment DIFF FINAL Differential Comment Blood Urea Nitrogen 3 MG/DL Creatinine 0.55 MG/DL Random Glucose 121 MG/DL Total Protein 6.0 GM/DL Albumin 2.5 GM/DL Calcium Level 8.2 MG/DL Alkaline Phosphatase 82 U/L Aspartate Amino Transf (AST/SGOT) 22 U/L Alanine Aminotransferase (ALT/SGPT) 24 U/L Total Bilirubin 0.2 MG/DL Sodium Level 138 MEQ/L Potassium Level 3.4 MEQ/L Chloride Level 104 MEQ/L Carbon Dioxide Level 24.4 MEQ/L Anion Gap 10 MEQ/L Estimat Glomerular Filtration Rate 135 ML/MIN Lactic Acid Level 1.2 mmol/L Imaging Last Impressions Renal Scan w/Medication NM 07/15/17 0000 Signed Impressions: Service Date/Time: Saturday, July 15, 2017 09:02 - CONCLUSION: 1. Boggy left collecting system with drainage following Lasix. No definite mechanical obstruction. 2. The right collecting system is unremarkable. Kumar Hampton MD Pelvis Ultrasound 07/14/17 0251 Signed Impressions: Service Date/Time: Friday, July 14, 2017 04:00 - CONCLUSION: 1. 3 cm left ovarian cyst otherwise unremarkable Baltazar Garcia MD Abdomen/Pelvis CT 07/13/17 8849 Signed Impressions: Service Date/Time: Friday, July 14, 2017 02:03 - CONCLUSION: 1. Left hydronephrosis and hydroureter without stone. 2. Left adnexal cyst versus tubo-ovarian abscess which may be cause of the obstruction. Baltazar Garcia MD Objective Remarks GENERAL: 27 year old female in no acute distress CARDIO: Regular. RESP: CTA ABD: +BS, soft, non-tender, nondistended. : bilateral CVA tenderness, improving EXT: No edema. No obvious deformities. A/P Problem List: (1) Pyelonephritis ICD Codes: N12 - Tubulo-interstitial nephritis, not specified as acute or chronic Status: Acute Plan: Recurrent Pyelonephritis: - Patient reports pyelonephritis approximately 2-3 times a year. She typically does not get dysuria with her UTI/pyelonephritis. She does typically have N/V, fevers, back pain and a darker urine. Patient reports no correlation with intercourse. She has gotten UTI without recent intercourse. Patient denies diarrhea recently. - Urine culture indicating probable contaminants - Pt recently failed outpatient therapy, and was recently given Keflex for UTI at [facility] 4 days prior to admission. - WBC improved 17.1 -> 9.5 - Afebrile since 07/14 - Pt has been on IV Ceftriaxone 1 gram Q24H since 07/14 - CT Abd/Pelvis (07/14) --> Left hydronephrosis and hydroureter without stone. Left adnexal cyst versus tubo-ovarian abscess which may be cause of the obstruction - Appreciate Urology consult - Renal scan was negative for obstruction, pt has been cleared for discharge by Urology and recommended outpt followup. - Pt is to complete a course of antibiotics for the pyelonephritis. Pt has had three doses of Rocephin. We will prescribe Levaquin 500mg po daily x 11 more days to complete a 14 day course. - Pt is to followup with her PCP, Dr. Paul Apodaca, in 1 week - Pt is to followup with Urology, Dr. Ojeda, in 1 week for re-evaluation. Hypokalemia: - K+ 3.1 -> 3.4 - Await repeat BMP today Ovarian Cyst: - Pelvic US 3cm left ovarian cyst otherwise unremarkable - Pt will need followup with [facility] as an outpt regarding the ovarian cyst. (2) UTI (urinary tract infection) ICD Codes: N39.0 - Urinary tract infection, site not specified (3) Hypokalemia ICD Codes: E87.6 - Hypokalemia (4) Ovarian cyst ICD Codes: N83.209 - Unspecified ovarian cyst, unspecified side Status: Acute Assessment and Plan Patient examined. Assessment and plan formulated with Keri Richards PA-C. I agree with the above. pylo. hydro on left. no obstruction per urology. f/u urology concern for ovarian cyst. give pt names of gynecologists d/c on abx she is eager for d/c Problem Qualifiers (1) Ovarian cyst: Qualified Codes: N83.202 - Unspecified ovarian cyst, left side Keri Richards Jul 16, 2017 11:00 Guero Kidd MD Jul 16, 2017 12:29
[2017-07-16 12:00] VITALS: BP 116/78; PULSE 81; RESP 20; TEMP 97.2; O2SAT 95
[2017-07-16] MEDS ORDERED: LEVO500T8 PO ×2 (12:09→12:14)
--- NOTE | 2017-07-16 12:10 | HHI.DCPOC ---
Discharge Care Plan Diagnosis: (1) Pyelonephritis (2) UTI (urinary tract infection) Goals to Promote Your Health * To prevent worsening of your condition and complications * To maintain your health at the optimal level Directions to Meet Your Goals Take your medications as prescribed Follow your dietary instruction Follow activity as directed Keep your appointments as scheduled Take your immunizations and boosters as scheduled If your symptoms worsen call your PCP, if no PCP go to Urgent Care Center or Emergency Room Smoking is Dangerous to Your Health. Avoid second hand smoke Call the 24-hour hour crisis hotline for domestic abuse at Keri Richards Jul 16, 2017 12:10
[2017-07-16] MEDS ORDERED: ZOFR4TAB PO (12:11)
[2017-07-16 13:37] LABS: BICARBONATE 26.3 MEQ/L (21.0-32.0); POTASSIUM 3.5 MEQ/L (3.5-5.1)
== END 2017-07-16 15:45 | disposition home or self-care (01) | DRG 872 ==
LOC: NEPC 23:14 → NEDA 07-14 04:51 → N07A 07-14 12:43
PROVIDERS: ADMIT Hospitalist; ATTEND Hospitalist
DX: A41.9 Sepsis, unspecified organism (principal); N13.6 Pyonephrosis; E87.6 Hypokalemia; N83.202 Unspecified ovarian cyst, left side; F17.210 Nicotine dependence, cigarettes, uncomplicated; Z23 Encounter for immunization; Z87.440 Personal history of urinary (tract) infections
CPT/HCPCS: 74176; 76856; 78708; 80048; 80053; 81001; 83605; 84703; 85025; 87086; 90686; 93975; A9539; J0696; J1885; J1940; J1956; J2270; J2405; J7030; Q2038

== ENCOUNTER 2017-07-30 04:17 | Emergency (ER) | payer OTHER ==
[2017-07-30 04:15] VITALS: O2SAT 99
[~2017-07-30 04:17] MED LIST changes: -CIPR-9 PO; +LEVO500T8 PO; -TRAM50TA PO; +ZOFR4TAB PO
[2017-07-30] MEDS ORDERED: IOHEXOL 350 MG/ML 10 ML VIAL (for RAD DIAG) IVCONTRAST ONE (04:18)
[2017-07-30 04:20] VITALS: O2SAT 97
[2017-07-30] MEDS ORDERED: MORPHINE SULFATE 8 MG/ML INJ ONE (04:31)
[2017-07-30] MEDS ORDERED: ONDANSETRON HCL 4 MG/2 ML VIAL ONE (04:31)
[2017-07-30 04:37] LABS: I-STAT POTASSIUM 3.3 MMOL/L (3.5-4.9)
[2017-07-30 04:40] LABS: AUTOMATED NEUTROPHIL # 6.2 TH/MM3 (1.8-7.7); BASOPHIL # 0.1 TH/MM3 (0-0.2); EOSINOPHIL # 0.1 TH/MM3 (0-0.4); EOSINOPHIL % 0.8 % (0.0-4.0); HEMO FLAGS DIFF FINAL; LYMPH % 24.1 % (9.0-44.0); LYMPHOCYTE # 2.3 TH/MM3 (1.0-4.8); MEAN CELL VOLUME 96.4 FL (80.0-100.0); MEAN CORPUSCULAR HEMOGLOBIN 33.2 PG (27.0-34.0); MEAN CORPUSCULAR HGB CONC 34.4 % (32.0-36.0); MONO % 10.2 % (0.0-8.0); NEUT % 63.9 % (16.0-70.0); PLATELET COUNT 351 TH/MM3 (150-450); RED BLOOD COUNT 4.36 MIL/MM3 (4.00-5.30); RED CELL DISTRIBUTION WIDTH 13.6 % (11.6-17.2); WHITE BLOOD COUNT 9.7 TH/MM3 (4.0-11.0)
[2017-07-30 04:50] LABS: PROTHROMBIN TIME - PATIENT 11.4 SEC (9.8-11.6)
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
[2017-07-30 05:00] VITALS: BP 135/83; PULSE 127; RESP 24; O2SAT 99
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
[2017-07-30] MEDS ORDERED: IBUPROFEN 600 MG TAB PO ONE (07:00)
== END 2017-07-30 08:17 | disposition home or self-care (01) ==
LOC: NEPI 04:17 → NEPE 08:17
DX: S20.211A Contusion of right front wall of thorax, initial encounter (principal); F10.920 Alcohol use, unspecified with intoxication, uncomplicated; J44.9 Chronic obstructive pulmonary disease, unspecified; F41.9 Anxiety disorder, unspecified; D64.9 Anemia, unspecified; F17.210 Nicotine dependence, cigarettes, uncomplicated; V49.9XXA Car occupant (driver) (passenger) injured in unspecified traffic accident, initial encounter; Y92.410 Unspecified street and highway as the place of occurrence of the external cause; Y90.8 Blood alcohol level of 240 mg/100 ml or more
CPT/HCPCS: 70450; 71010; 71260; 72125; 72170; 74177; 80307; 82435; 82565; 82947; 84132; 84295; 84520; 85025; 85384; 85610; 85730; 86850; 86900; 86901; 90471; 96374; 96375; 99291; J2270; J2405; Q9967; G0390

== ENCOUNTER 2017-09-18 21:20 | Inpatient (IN) | payer SELFPAY ==
[~2017-09-18] VITALS: Ht 165.1 cm; Wt 64.5 kg
[2017-09-18 21:21] VITALS: BP 111/70; PULSE 98; RESP 16; TEMP 100; O2SAT 96
[2017-09-18] MEDS ORDERED: SODIUM CHLOR 0.9% 1000 ML INJ 1,000 ML IV ONE (21:51)
[2017-09-18] MEDS ORDERED: cefTRIAXone INJ 1,000 MG in SODIUM CHLORIDE 0.9% INJ 100 ML IV ONE (22:00)
[2017-09-18] MEDS ORDERED: SODIUM CHLORIDE 0.9% FLUSH 10 ML FLUSH IVF PRN (22:00)
[2017-09-18] MEDS ORDERED: KETOROLAC TROMETHAMINE 30 MG/ML (IVP) VIAL IV PUSH ONE (22:00)
[2017-09-18] MEDS ORDERED: ONDANSETRON HCL 4 MG/2 ML VIAL IV PUSH ONE (22:00)
--- NOTE | 2017-09-18 22:01 | PD ---
HPI Chief Complaint: GI Complaint Time Seen by Provider: 21:51 Travel History International Travel<30 days: No Contact w/Intl Traveler<30days: No Traveled to known affect area: No History of Present Illness HPI 27-year-old female presents to the emergency department for 2 days of left flank pain and prior history of pyelonephritis. Patient states she started to have fever and vomiting today. Patient denies other concerns or complaints. No respiratory illness symptoms. Patient denies . Patient denies abdominal pain. Patient is noted urinary frequency urgency without hematuria. No vaginal discharge or vaginal bleeding. The patient rates her pain 7/10 in intensity. Patient did take ibuprofen for fever at home earlier in the day. Patient denies other concerns or complaints. PFSH Past Medical History Narrative Medical Chronic bronchitis pyelonephritis endometriosis; tobacco use: Nursing notes reviewed Anemia: Yes Anxiety: Yes Depression: No Cancer: No Cardiovascular Problems: No COPD: Yes (CHRONIC BRONCHITIS) Diabetes: No Diminished Hearing: No Endocrine: No Gastrointestinal Disorders: No Genitourinary: Yes Immune Disorder: No Implanted Vascular Access Dvce: No Kidney Stones: Yes Musculoskeletal: No Neurologic: Yes Psychiatric: Yes Reproductive: Yes (endometriosis) Respiratory: No Immunizations Current: No LMP: 09/12/17 Menopausal: No : 0 Ovarian Cysts: Yes Past Surgical History Abdominal Surgery: No Cardiac Surgery: No Ear Surgery: No Endocrine Surgery: No Eye Surgery: No Genitourinary Surgery: No Gynecologic Surgery: No Neurologic Surgery: No Oral Surgery: No Thoracic Surgery: No Other Surgery: No Social History Alcohol Use: Yes (social once a week) Tobacco Use: Yes (2-3 cigs per day) Substance Use: No Allergies-Medications (Allergen,Severity, Reaction): Coded Allergies: Sulfa (Sulfonamide Antibiotics) (Unverified Allergy, Severe, HIVES, ) medroxyprogesterone (Unverified Allergy, Severe, HIVES, 07/13/17) Reported Meds & Prescriptions Reported Meds & Active Scripts Active Levofloxacin 500 Mg Tablet 500 Mg PO DAILY 11 Days Zofran (Ondansetron HCl) 4 Mg Tab 4 Mg PO Q8HR PRN 5 Days Review of Systems Except as stated in HPI: all other systems reviewed are Neg Physical Exam Narrative GENERAL: Well-developed well-nourished female in no acute distress no respiratory distress SKIN: Warm and dry. HEAD: Normocephalic. EYES: No scleral icterus. No injection or drainage. NECK: Supple, trachea midline. No JVD or lymphadenopathy. CARDIOVASCULAR: Regular rate and rhythm without murmurs, gallops, or rubs. RESPIRATORY: Breath sounds equal bilaterally. No accessory muscle use. GASTROINTESTINAL: Abdomen soft, non-tender, nondistended. MUSCULOSKELETAL: No cyanosis, or edema. BACK: Nontender without obvious deformity. Left-sided CVA tenderness. Data Data Last Documented VS Vital Signs Date Time Temp Pulse Resp B/P (MAP) Pulse Ox O2 Delivery O2 Flow Rate FiO2 09/19/17 01:01 99.3 95 18 125/76 (92) 96 Room Air Orders Orders Complete Blood Count With Diff (09/18/17 21:51) Basic Metabolic Panel (Bmp) (09/18/17 21:51) Urinalysis - C+S If Indicated (09/18/17 21:51) Ed Urine Pregnancytest Poc (09/18/17 21:51) Ct Abd/Pel W/O Iv Contrast (09/18/17 21:51) Ecg Monitoring (09/18/17 21:51) Iv Access Insert/Monitor (09/18/17 21:51) Ketorolac Inj (Toradol Inj) (09/18/17 22:00) Ondansetron Inj (Zofran Inj) (09/18/17 22:00) Sodium Chloride 0.9% Flush (Ns Flush) (09/18/17 22:00) Sodium Chlor 0.9% 1000 Ml Inj (Ns 1000 M (09/18/17 21:51) Ceftriaxone Inj (Rocephin Inj) (09/18/17 22:00) Urine Culture (09/18/17 22:00) Ondansetron Inj (Zofran Inj) (09/19/17 00:45) Morphine Inj (Morphine Inj) (09/19/17 00:45) Admit To Inpatient (09/19/17 ) Vital Signs (Adult) Q4H (09/19/17 00:53) Activity Oob Ad Bethany (09/19/17 00:53) Plumber Apprentice / Telemetry .CONTINUOUS (09/19/17 00:53) Intake + Output LEO.QSHIFT (09/19/17 00:53) Sodium Chlor 0.9% 1000 Ml Inj (Ns 1000 M (09/19/17 00:53) Sodium Chloride 0.9% Flush (Ns Flush) (09/19/17 01:00) Sodium Chloride 0.9% Flush (Ns Flush) (09/19/17 09:00) Ondansetron Inj (Zofran Inj) (09/19/17 01:00) Comprehensive Metabolic Panel (09/19/17 06:00) Complete Blood Count With Diff (09/19/17 06:00) Scd Bilateral/Knee High LEO.BID (09/19/17 00:53) Franco Bilateral/Knee High LEO.QSHIFT (09/19/17 01:00) Acetaminophen (Tylenol) (09/19/17 01:00) Acetamin-Hydrocod 325-5 Mg (Gardner 5-325 (09/19/17 01:00) Docusate Sodium-Senna (Mckenzie-Colace) (09/19/17 09:00) Magnesium Hydroxide Liq (Milk Of Magnesi (09/19/17 01:00) Sennosides (Senokot) (09/19/17 01:00) Bisacodyl Supp (Dulcolax Supp) (09/19/17 01:00) Lactulose Liq (Lactulose Liq) (09/19/17 01:00) Inpatient Certification (09/19/17 ) Ceftriaxone Inj (Rocephin Inj) (09/19/17 23:00) Morphine Inj (Morphine Inj) (09/19/17 01:00) Admit Order (Ed Use Only) (09/19/17 ) Plumber Apprentice / Telemetry LEO.Q8H (09/19/17 01:28) Diet Heart Healthy (09/19/17 Breakfast) Activity Oob With Assistance (09/19/17 01:28) Notify Dr: Other (09/19/17 01:28) Labs Laboratory Tests Test 09/18/17 22:00 White Blood Count 20.0 TH/MM3 Red Blood Count 4.15 MIL/MM3 Hemoglobin 13.9 GM/DL Hematocrit 39.2 % Mean Corpuscular Volume 94.4 FL Mean Corpuscular Hemoglobin 33.5 PG Mean Corpuscular Hemoglobin Concent 35.4 % Red Cell Distribution Width 13.0 % Platelet Count 337 TH/MM3 Mean Platelet Volume 7.6 FL Neutrophils (%) (Auto) 88.9 % Lymphocytes (%) (Auto) 4.9 % Monocytes (%) (Auto) 6.0 % Eosinophils (%) (Auto) 0.0 % Basophils (%) (Auto) 0.2 % Neutrophils # (Auto) 17.8 TH/MM3 Lymphocytes # (Auto) 1.0 TH/MM3 Monocytes # (Auto) 1.2 TH/MM3 Eosinophils # (Auto) 0.0 TH/MM3 Basophils # (Auto) 0.0 TH/MM3 CBC Comment DIFF FINAL Differential Comment Urine Color YELLOW Urine Turbidity HAZY Urine pH 7.5 Urine Specific [place] 1.012 Urine Protein 30 mg/dL Urine Glucose (UA) NEG mg/dL Urine Ketones NEG mg/dL Urine Occult Blood SMALL Urine Nitrite NEG Urine Bilirubin NEG Urine Urobilinogen LESS THAN 2.0 MG/DL Urine Leukocyte Esterase LARGE Urine RBC 7 /hpf Urine WBC /hpf Urine Squamous Epithelial Cells 26 /hpf Urine Bacteria MOD /hpf Urine Mucus FEW /lpf Microscopic Urinalysis Comment CULTURE INDICATED Blood Urea Nitrogen 10 MG/DL Creatinine 0.98 MG/DL Random Glucose 100 MG/DL Calcium Level 8.5 MG/DL Sodium Level 138 MEQ/L Potassium Level 3.6 MEQ/L Chloride Level 102 MEQ/L Carbon Dioxide Level 28.2 MEQ/L Anion Gap 8 MEQ/L Estimat Glomerular Filtration Rate 69 ML/MIN [facility] Medical Decision Making Medical Screen Exam Complete: Yes Emergency Medical Condition: Yes Medical Record Reviewed: Yes Interpretation(s) POC hCG: negative Last Impressions Abdomen/Pelvis CT 09/18/172150 Signed Impressions: Service Date/Time: August 22:40 - CONCLUSION: Prominent left hydronephrosis and hydroureter down to the level of the low pelvis. Left adnexal cystic mass, not clearly related. Followup with pelvic sonography in 6 weeks is suggested. Low density left adrenal mass. Further evaluation with chemical shift MRI suggested on an elective basis. Cheng Rudolph MD CBC & BMP Diagram 09/18/17 22:00 Calcium Level 8.5 Vital Signs Date Time Temp Pulse Resp B/P (MAP) Pulse Ox O2 Delivery O2 Flow Rate FiO2 09/18/17 21:21 100.0 98 16 111/70 (84) 96 Room Air Differential Diagnosis UTI pyelonephritis sepsis obstructive uropathy ectopic Narrative Course IV access obtained specimens collected and sent for resulting patient administered Rocephin; [id number] hCG ordered Patient with leukocytosis abnormal urinalysis with active urea/pyuria fever and increased heart rate consistent with sirs/sepsis criteria with UTI/ pyelonephritis and hydroureter of unclear source will be admitted for IV antibiotics and possible urology consult. Patient discussed with Dr Ham Physician Communication Physician Communication call placed to [facility] service Diagnosis Primary Impression: Pyelonephritis Additional Impressions: Hydroureter, left Hydronephrosis Admitting Information Admitting Physician Requests: Admit Cheryl Chang MD Sep 18, 2017 22:00
[2017-09-18 22:24] LABS: BACTERIA, URINE MOD /hpf; BLOOD, URINE SMALL (NEG); COMMENT (UR) CULTURE INDICATED; CULTURE IF INDICATED CULTURE INDICATED; GLUCOSE,URINE NEG (NEG); KETONE, URINE NEG (NEG); MUCUS URINE FEW /lpf (OCC); NITRITE,URINE NEG (NEG); PH, URINE 7.5 (5.0-8.5); SQUAMOUS EPITHELIAL CELL URINE 26 /hpf (0-5); URINE COLOR YELLOW (YELLW/STRAW)
[2017-09-18 22:30] LABS: AUTOMATED NEUTROPHIL # 17.8 TH/MM3 (1.8-7.7); BASOPHIL % 0.2 % (0.0-2.0); HEMATOCRIT 39.2 % (35.0-46.0); HEMO FLAGS DIFF FINAL; LYMPH % 4.9 % (9.0-44.0); MEAN CELL VOLUME 94.4 FL (80.0-100.0); MEAN CORPUSCULAR HEMOGLOBIN 33.5 PG (27.0-34.0); MEAN CORPUSCULAR HGB CONC 35.4 % (32.0-36.0); NEUT % 88.9 % (16.0-70.0); PLATELET COUNT 337 TH/MM3 (150-450); RED BLOOD COUNT 4.15 MIL/MM3 (4.00-5.30)
[2017-09-18 22:40] LABS: BICARBONATE 28.2 MEQ/L (21.0-32.0); POTASSIUM 3.6 MEQ/L (3.5-5.1)
--- NOTE | 2017-09-18 23:24 | RADRPT ---
EXAM DATE/TIME: 09/18/2017 22:40 [place] COMPARISON: No previous studies available for comparison. INDICATIONS : Left flank pain, fever. ORAL CONTRAST: No oral contrast ingested. RADIATION DOSE: 7.70 CTDIvol (mGy) MEDICAL HISTORY : Renal calculi. Ovarian cysts. SURGICAL HISTORY : None. ENCOUNTER: Initial ACUITY: 1 day PAIN SCALE: 7/10 LOCATION: Left flank TECHNIQUE: Volumetric scanning of the abdomen and pelvis was performed. Using automated exposure control and ad justment of the mA and/or kV according to patient size, radiation dose was kept as low as reasonably achievable to obtain optimal diagnostic quality images. DICOM format image data is available electro nically for review and comparison. FINDINGS: LOWER LUNGS: Minimal left base atelectasis. LIVER: Tiny probable cyst in the dome of the right lobe. Visualized portions otherwise unremarkable with no ductal dilatation identified. SPLEEN: Small adjacent splenule anteriorly. PANCREAS: Within normal limits. KIDNEYS: Prominent left hydronephrosis and hydroureter. No stones are seen. The ureter is dilated down into th e low pelvis where it ends in the region of a small mixed density mass process of undetermined origin just above the expected region of the ureterovesical junction. ADRENAL GLANDS: Slightly greater than 2 cm low-density mass involving the apex of the left adrenal. Right adrenal is unremarkable VASCULAR: There is no aortic aneurysm. BOWEL/MESENTERY: The stomach, small bowel, and colon demonstrate no acute abnormality. There is no free intraperitone al air or fluid. ABDOMINAL WALL: Within normal limits. RETROPERITONEUM: There is no lymphadenopathy. BLADDER: No wall thickening or mass. REPRODUCTIVE: 4.5 cm septated cystic mass in the left adnexal region appears fairly benign, not clearly affecting t he distal ureter INGUINAL: There is no lymphadenopathy or hernia. MUSCULOSKELETAL: Within normal limits for patient age. CONCLUSION: Prominent left hydronephrosis and hydroureter down to the level of the low pelvis. Left adnexal cystic mass, not clearly related. Followup with pelvic sonography in 6 weeks is suggeste d. Low density left adrenal mass. Further evaluation with chemical shift MRI suggested on an elective ba sis. Cheng Rudolph MD on September 18, 2017 at 23:08 Board Certified Radiologist. This report was verified electronically.
[2017-09-19] VITALS (9 sets, daily range): BP systolic 105–130; BP diastolic 59–85; PULSE 78–108; RESP 16–20; TEMP 98.3–100.5; O2SAT 92–99
[2017-09-19] MEDS ORDERED: ONDANSETRON HCL 4 MG/2 ML VIAL IV PUSH ONE (00:45)
[2017-09-19] MEDS ORDERED: MORPHINE SULFATE 2 MG/ML INJ IV PUSH ONE (00:45)
[2017-09-19] MEDS ORDERED: SENNOSIDES 8.6 MG TAB PO PRN (01:00)
[2017-09-19] MEDS ORDERED: MAGNESIUM HYDROXIDE SUSP 30 ML CUP PO PRN (01:00)
[2017-09-19] MEDS ORDERED: SODIUM CHLORIDE 0.9% FLUSH 10 ML FLUSH IV FLUSH PRN (01:00)
[2017-09-19] MEDS ORDERED: ACETAMINOPHEN 325 MG TAB PO PRN (01:00)
[2017-09-19] MEDS ORDERED: BISACODYL 10 MG SUPP RECTAL PRN (01:00)
[2017-09-19] MEDS ORDERED: LACTULOSE SYRUP 20 GM/30 ML CUP PO PRN (01:00)
--- NOTE | 2017-09-19 01:56 | HHI.HP ---
[facility] Physician No Primary Care Physician Admission Diagnosis sepsis; pyelonephritis; hydronephrosis/ureter Diagnoses: (1) Sepsis Diagnosis: Principal (2) UTI (urinary tract infection) Diagnosis: Principal (3) Hydronephrosis Diagnosis: Principal (4) Adnexal cyst Diagnosis: Principal Travel History International Travel<30 Days: No Contact w/Intl Traveler <30 Da: No Traveled to Known Affected Are: No History of Present Illness This is a 27-year-old female with a PMH of Anxiety, Endometriosis, Recurrent UTI /Pyelonephritis and Tobacco Abuse who presented to the ER with complaints of left flank pain in addition to fever, nausea and vomiting starting earlier today. Previous admit for similar symptoms 07/14/17, CT Abd/Pelvis w/ left hydronephrosi, questionable tubo-ovarian abscess, s/p eval by Dr. Ojeda w/ Urology, recommended renal scan and nephrostomy if renal scan showed obstruction , however renal scan negative. D/c'd home w/ course of Levaquin 500mg po x14 days. Reports no recurrent symptoms until now. WBC 20. Chemistry essentially unremarkable. UA positive for UTI. CT Abd/Pelvis w/ prominent left hydronephrosis and hydroureter down to low pelvis, left adnexal cystic mass follow-up pelvic sonography in 6 weeks, left adrenal mass. S/p Rocephin in ER. Review of Systems Except as stated in HPI: all other systems reviewed are Neg ROS: 14 point review of systems otherwise negative. Past Family Social History Past Medical History PMH: Anxiety, Endometriosis, Recurrent UTI/Pyelonephritis and Tobacco Abuse Past Surgical History PAST SURGICAL HISTORY: None Allergies: Coded Allergies: Sulfa (Sulfonamide Antibiotics) (Unverified Allergy, Severe, HIVES, ) medroxyprogesterone (Unverified Allergy, Severe, HIVES, 07/13/17) Family History PAST FAMILY HISTORY: Reviewed. No h/o DM or CAD Social History PAST SOCIAL HISTORY: Occasional alcohol. Positive for tobacco. Negative for drugs. Physical Exam Vital Signs Vital Signs Date Time Temp Pulse Resp B/P (MAP) Pulse Ox O2 Delivery O2 Flow Rate FiO2 09/19/17 01:01 99.3 95 18 125/76 (92) 96 Room Air 09/18/17 21:21 100.0 98 16 111/70 (84) 96 Room Air Physical Exam PE: GENERAL: Young female in no acute distress, but mildly anxious/uncomfortable. HEENT: PERRLA, EOMI. No scleral icterus or conjunctival pallor. No lid lag or facial droop. CARDIOVASCULAR: Regular rate and rhythm. No obvious murmurs to auscultation. No chest tenderness to palpation. RESPIRATORY: No obvious rhonchi or wheezing. Clear to auscultation. Breath sounds equal bilaterally. GASTROINTESTINAL: Abdomen soft, left flank tenderness to palpation, nondistended. BS normal. MUSCULOSKELETAL: Extremities without clubbing, cyanosis, or edema. No obvious deformities. NEUROLOGICAL: Awake, alert and oriented x4. No focal neurologic deficits. Moving both upper and lower extremities spontaneously. Laboratory Laboratory Tests Test 09/18/17 22:00 White Blood Count 20.0 Red Blood Count 4.15 Hemoglobin 13.9 Hematocrit 39.2 Mean Corpuscular Volume 94.4 Mean Corpuscular Hemoglobin 33.5 Mean Corpuscular Hemoglobin Concent 35.4 Red Cell Distribution Width 13.0 Platelet Count 337 Mean Platelet Volume 7.6 Neutrophils (%) (Auto) 88.9 Lymphocytes (%) (Auto) 4.9 Monocytes (%) (Auto) 6.0 Eosinophils (%) (Auto) 0.0 Basophils (%) (Auto) 0.2 Neutrophils # (Auto) 17.8 Lymphocytes # (Auto) 1.0 Monocytes # (Auto) 1.2 Eosinophils # (Auto) 0.0 Basophils # (Auto) 0.0 CBC Comment DIFF FINAL Differential Comment Urine Color YELLOW Urine Turbidity HAZY Urine pH 7.5 Urine Specific [place] 1.012 Urine Protein 30 Urine Glucose (UA) NEG Urine Ketones NEG Urine Occult Blood SMALL Urine Nitrite NEG Urine Bilirubin NEG Urine Urobilinogen LESS THAN 2.0 Urine Leukocyte Esterase LARGE Urine RBC 7 Urine WBC Urine Squamous Epithelial Cells 26 Urine Bacteria MOD Urine Mucus FEW Microscopic Urinalysis Comment CULTURE INDICATED Blood Urea Nitrogen 10 Creatinine 0.98 Random Glucose 100 Calcium Level 8.5 Sodium Level 138 Potassium Level 3.6 Chloride Level 102 Carbon Dioxide Level 28.2 Anion Gap 8 Estimat Glomerular Filtration Rate 69 Date/Time Source Procedure Growth Status 09/18/17 22:00 Urine Clean Catch Urine Culture Pending Received Result Diagram: 09/18/17219909/[id number]/172199 Caprini VTE Risk Assessment Caprini VTE Risk Assessment: No/Low Risk (score <= 1) Caprini Risk Assessment Model Point Value = 1 Point Value = 2 Point Value = 3 Point Value = 5 Age 41-60 Minor surgery BMI > 25 kg/m2 Swollen legs Varicose veins or History of unexplained or recurrent spontaneous Oral contraceptives or hormone replacement Sepsis (< 1 month) Serious lung disease, including pneumonia (< 1 month) Abnormal pulmonary function Acute myocardial infarction Congestive heart failure (< 1 month) History of inflammatory bowel disease Medical patient at bed rest Age 61-74 Arthroscopic surgery Major open surgery (> 45 min) Laparoscopic surgery (> 45 min) Malignancy Confined to bed (> 72 hours) Immobilizing plaster cast Central venous access Age >= 75 History of VTE Family history of VTE Factor V Leiden Prothrombin [id number] Lupus anticoagulant Anticardiolipin antibodies Elevated serum homocysteine Heparin-induced thrombocytopenia Other congenital or acquired thrombophilia Stroke (< 1 month) Elective arthroplasty Hip, pelvis, or leg fracture Acute spinal cord injury (< 1 month) Prophylaxis Regimen Total Risk Factor Score Risk Level Prophylaxis Regimen 0-1 Low Early ambulation 2 Moderate Order ONE of the following: *Sequential Compression Device (SCD) *Heparin 5000 units SQ BID 3-4 Higher Order ONE of the following medications: *Heparin 5000 units SQ TID *Enoxaparin/Lovenox 40 mg SQ daily (WT < 150 kg, CrCl > 30 mL/min) *Enoxaparin/Lovenox 30 mg SQ daily (WT < 150 kg, CrCl > 10-29 mL/min) *Enoxaparin/Lovenox 30 mg SQ BID (WT < 150 kg, CrCl > 30 mL/min) AND/OR *Sequential Compression Device (SCD) 5 or more Highest Order ONE of the following medications: *Heparin 5000 units SQ TID (Preferred with Epidurals) *Enoxaparin/Lovenox 40 mg SQ daily (WT < 150 kg, CrCl > 30 mL/min) *Enoxaparin/Lovenox 30 mg SQ daily (WT < 150 kg, CrCl > 10-29 mL/min) *Enoxaparin/Lovenox 30 mg SQ BID (WT < 150 kg, CrCl > 30 mL/min) AND *Sequential Compression Device (SCD) Assessment and Plan Problem List: (1) Sepsis ICD Code: A41.9 - Sepsis, unspecified organism (2) UTI (urinary tract infection) ICD Code: N39.0 - Urinary tract infection, site not specified (3) Hydronephrosis ICD Code: N13.30 - Unspecified hydronephrosis (4) Adnexal cyst ICD Code: N94.9 - Unspecified condition associated with female genital organs and menstrual cycle Assessment and Plan A/P: 1. Sepsis: Temp 100.0, HR 98, WBC 20, Source-UTI. S/p Urine Culture, Rocephin in ER. Follow up cultures, continue IV Abx. 2. UTI/Pyelonephritis: Recurrent. U/a w/ UTI, continue w/ IV Abx and follow up cultures as above. IVF for hydration. 3. Hydronephrosis: CT Abd/Pelvis w/ left hydronephrosis, no obvious stone/ obstruction, images reviewed by me. Chronic, similar findings on previous admit 07/14/17, s/p eval by Dr. Ojeda, renal scan negative for obstruction. 4. Adnexal Cyst Mass: CT Abd/Pelvis w/ left adnexal cystic mass, recommendation for Pelvic US in 6wks. 5. DVT Prophylaxis: SCD/Teds. 6. Social work for d/c planning as needed. 7. Case discussed w/ ER physician at length. Physician Certification 2 Midnight Certification Type: Admission for Inpatient Services Order for Inpatient Services The services are ordered in accordance with Medicare regulations or non- Medicare payer requirements, as applicable. In the case of services not specified as inpatient-only, they are appropriately provided as inpatient services in accordance with the 2-midnight benchmark. Estimated LOS (days): 2 days is the estimated time the patient will need to remain in the hospital, assuming treatment plan goals are met and no additional complications. Post-Hospital Plan: Not yet determined Yvrose Ham MD Sep 19, 2017 01:56
[2017-09-19] MEDS: SODIUM CHLOR 0.9% 1000 ML INJ 1,000 ML IV SCH ×3 (02:22→20:11)
[2017-09-19] MEDS: FAMOTIDINE 20 MG/2 ML VIAL IV PUSH SCH ×2 (02:22→13:34)
[2017-09-19] MEDS: MORPHINE SULFATE 2 MG/ML INJ IV PUSH PRN ×4 (03:33→20:12)
[2017-09-19] MEDS: ONDANSETRON HCL 4 MG/2 ML VIAL IVP PRN ×2 (03:33→20:12)
[2017-09-19] MEDS: DOCUSATE SODIUM 50 MG/SENNA 8.6 MG TAB PO SCH ×2 (09:18→20:11)
[2017-09-19] MEDS: SODIUM CHLORIDE 0.9% FLUSH 10 ML FLUSH IV FLUSH SCH ×2 (09:21→20:11)
[2017-09-19 13:22] LABS: AUTOMATED NEUTROPHIL # 14.1 TH/MM3 (1.8-7.7); BASOPHIL % 0.2 % (0.0-2.0); EOSINOPHIL % 0.1 % (0.0-4.0); HEMATOCRIT 36.9 % (35.0-46.0); HEMO FLAGS DIFF FINAL; LYMPH % 4.9 % (9.0-44.0); LYMPHOCYTE # 0.8 TH/MM3 (1.0-4.8); MEAN CELL VOLUME 95.9 FL (80.0-100.0); MEAN CORPUSCULAR HGB CONC 34.4 % (32.0-36.0); MONO % 6.7 % (0.0-8.0); NEUT % 88.1 % (16.0-70.0); PLATELET COUNT 293 TH/MM3 (150-450); RED BLOOD COUNT 3.85 MIL/MM3 (4.00-5.30)
[2017-09-19] MEDS: ACETAMINOPHEN/HYDROcodone 325 MG/5 MG TAB PO PRN ×2 (13:33→21:58)
[2017-09-19 13:41] LABS: ANION GAP 7 MEQ/L (5-15); AST (GOT) 11 U/L (15-37); BLOOD UREA NITROGEN 9 MG/DL (7-18); CHLORIDE 106 MEQ/L (98-107); GLOMERULAR FILTRATION RATE 107 ML/MIN (>89); POTASSIUM 3.5 MEQ/L (3.5-5.1); SODIUM (NA) 138 MEQ/L (136-145)
[2017-09-19 13:42] LABS: ALT (GPT) 12 U/L (10-53)
[2017-09-19 13:44] LABS: ALKALINE PHOSPHATASE 61 U/L (45-117); TOTAL BILIRUBIN ADULT 0.6 MG/DL (0.2-1.0)
--- NOTE | 2017-09-19 14:23 | HHI.PR ---
Addendum to Inpatient Note Additional Information Patient still with fever and abdominal flank pain I consulted urology, and talked to gynecology regarding the adnexal mass Friday did not recommend any further testing while in hospital but they recommended definite follow up as an outpatient for possible need for removal Henrik Eddy MD Sep 19, 2017 14:23
--- NOTE | 2017-09-19 17:54 | MB ---
cc: KHOI GARAY MD DATE OF CONSULTATION: 09/19/2017 REASON FOR CONSULTATION: Hydroureter rather on the left-hand side with left flank pain. CURRENT HISTORY This is a 27-year-old who was seen by our service on July 14, 2017. At that time she was noted to have left hydronephrosis a questionable to loop tubal ovarian abscess. She was seen by my partner Dr. Ojeda from neurology who recommended a renal scan and nephrostomy tube if the renal scan showed obstruction. However, the renal scan was negative. She was discharged and arrangements have been made to follow up with [facility] however, she failed to do that. [place]. Now she is back with almost identical complaints, slightly elevated white count of 20,000. Urine that is positive for bacteria and a CT scan that demonstrates left hydronephrosis and hydroureter down into the low pelvis and again a left adnexal cystic mass. During the interview process she states that she had at one time had bilateral of adnexal cystic masses and that the one of those had since ruptured and as far she has knew the left was still present. She is resting comfortably in bed. IMPRESSION: Persistent left hydronephrosis that may be "Boggy or megaureter with poor function" but at least historically has shown no evidence of obstruction. PLAN: We will go ahead and get another renal scan. There is no obstruction noted, there is very little else from a urological standpoint that we can do at this point. She should probably be ureteroscope on an outpatient basis. But if there is obstruction noted on today's renal scan on the left percutaneous nephrostomy tube should be placed. She should follow up with [facility] on an outpatient basis once she has stabilized. MD GRACY Ribeiro/janine /4:32 PM /5:30 PM
[2017-09-19] MEDS: cefTRIAXone INJ 1,000 MG in SODIUM CHLORIDE 0.9% INJ 100 ML IV SCH (21:59)
[2017-09-20] VITALS: BP 124/72; PULSE 92; RESP 20; TEMP 99.1; O2SAT 97
[2017-09-20] MEDS: FAMOTIDINE 20 MG/2 ML VIAL IV PUSH SCH ×2 (00:56→13:18)
[2017-09-20] MEDS: MORPHINE SULFATE 2 MG/ML INJ IV PUSH PRN ×5 (00:56→22:13)
[2017-09-20 04:00] VITALS: BP 117/73; PULSE 88; RESP 18; TEMP 100.3; O2SAT 92
[2017-09-20] MEDS: ACETAMINOPHEN/HYDROcodone 325 MG/5 MG TAB PO PRN (05:34)
[2017-09-20] MEDS: SODIUM CHLOR 0.9% 1000 ML INJ 1,000 ML IV SCH ×2 (05:35→17:26)
[2017-09-20] MEDS: SODIUM CHLORIDE 0.9% FLUSH 10 ML FLUSH IV FLUSH SCH ×2 (07:55→20:54)
[2017-09-20] MEDS: DOCUSATE SODIUM 50 MG/SENNA 8.6 MG TAB PO SCH ×2 (07:58→20:54)
[2017-09-20 08:00] VITALS: BP 115/69; PULSE 88; RESP 17; TEMP 98.6; O2SAT 93
[2017-09-20] MEDS: ONDANSETRON HCL 4 MG/2 ML VIAL IVP PRN ×2 (08:05→17:26)
[2017-09-20 08:12] LABS: AUTOMATED NEUTROPHIL # 9.7 TH/MM3 (1.8-7.7); BASOPHIL % 0.3 % (0.0-2.0); EOSINOPHIL % 0.2 % (0.0-4.0); HEMATOCRIT 36.9 % (35.0-46.0); HEMO FLAGS DIFF FINAL; LYMPH % 8.9 % (9.0-44.0); MEAN CELL VOLUME 95.1 FL (80.0-100.0); MEAN CORPUSCULAR HEMOGLOBIN 32.6 PG (27.0-34.0); MEAN CORPUSCULAR HGB CONC 34.3 % (32.0-36.0); MONO % 7.5 % (0.0-8.0); NEUT % 83.1 % (16.0-70.0); PLATELET COUNT 289 TH/MM3 (150-450); RED BLOOD COUNT 3.88 MIL/MM3 (4.00-5.30); WHITE BLOOD COUNT 11.7 TH/MM3 (4.0-11.0)
[2017-09-20 08:44] LABS: BICARBONATE 25.3 MEQ/L (21.0-32.0); POTASSIUM 3.1 MEQ/L (3.5-5.1)
[2017-09-20] MEDS ORDERED: FUROSEMIDE 40 MG/4 ML VIAL ONE (10:27)
--- NOTE | 2017-09-20 15:06 | HHI.PR ---
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, still had a positive left flank and back pain with nausea She just came from renal scan, per urology if this is negative she can be discharged to follow as an outpatient however patient told me she doesn't feel well at all, will continue monitoring on discussed with the nurse Objective Vitals Vital Signs Date Time Temp Pulse Resp B/P (MAP) Pulse Ox O2 Delivery O2 Flow Rate FiO2 09/20/17 08:00 98.6 88 17 115/69 (84) 93 09/20/17 04:00 100.3 88 18 117/73 (88) 92 09/20/17 00:00 99.1 92 20 124/72 (89) 97 09/19/17 20:00 100.5 108 20 123/80 (94) 98 09/19/17 19:55 101 09/19/17 16:00 98.3 78 16 117/71 (86) 99 I/O 09/19/17 09/19/17 09/19/17 09/20/17 09/20/17 09/20/17 07:00 15:00 23:00 07:00 15:00 23:00 Intake Total 1340 ml 1720 ml 1050 ml Balance 1340 ml 1720 ml 1050 ml Intake Oral 240 ml 620 ml IV Total 1100 ml 1100 ml 1050 ml # Voids 1 4 # Bowel Movements 0 Result Diagram: 09/20/17 0735 09/20/17 0735 Objective Remarks GENERAL: This is a well-nourished, well-developed patient, in no apparent distress. SKIN: No rashes, warm and dry HEAD: Atraumatic. Normocephalic. EYES: Pupils equal round and reactive. Extraocular motions intact. No scleral icterus. ENT: Nose without bleeding, or drainage, Airway patent. NECK: Trachea midline. Supple CARDIOVASCULAR: Regular rate and rhythm without murmurs, gallops, or rubs. RESPIRATORY: Fair air entry bilaterally. No wheezes, rales, or rhonchi. GASTROINTESTINAL: Abdomen soft, tender on the left flank, nondistended. Positive bowel sounds MUSCULOSKELETAL: Extremities without clubbing, cyanosis, or edema. Pedal pulses appreciated NEUROLOGICAL: Awake and alert. Moves all extremity. Normal speech.no focal neurological deficit A/P Problem List: (1) Sepsis ICD Code: A41.9 - Sepsis, unspecified organism (2) UTI (urinary tract infection) ICD Code: N39.0 - Urinary tract infection, site not specified (3) Hydronephrosis ICD Code: N13.30 - Unspecified hydronephrosis (4) Adnexal cyst ICD Code: N94.9 - Unspecified condition associated with female genital organs and menstrual cycle Assessment and Plan 1. Sepsis: Temp 100.0, HR 98, WBC 20, Source-UTI. S/p Urine Culture, Rocephin in ER. Follow up cultures, continue IV Abx. 2. UTI/Pyelonephritis: Recurrent. U/a w/ UTI, continue w/ IV Abx and follow up cultures as above. IVF for hydration. 3. Hydronephrosis: CT Abd/Pelvis w/ left hydronephrosis, no obvious stone/ obstruction, images reviewed by me. Chronic, similar findings on previous admit 07/14/17, s/p eval by Dr. Ojeda, renal scan negative for obstruction. 4. Adnexal Cyst Mass: CT Abd/Pelvis w/ left adnexal cystic mass, recommendation for Pelvic US in 6wks. 5. DVT Prophylaxis: SCD/Teds. 09/20: Appreciate Urology consultation order renal scan, if this came negative they cleared her to be discharged and follow as an outpatient however patient doesn't feel well at all still having the pain fever and nausea, renal scan still pending D/W patient Henrik Eddy MD Sep 20, 2017 15:06
[2017-09-20 16:00] VITALS: BP 112/66; PULSE 72; RESP 17; TEMP 97; O2SAT 94
[2017-09-20 16:17] VITALS: PULSE 83
--- NOTE | 2017-09-20 17:36 | RADRPT ---
EXAM DATE/TIME: 09/20/2017 10:25 [place] COMPARISON: [facility]ENO[facility] W/PHARM (DPTA/LASIX), July 15, 2017, 9:02. INDICATIONS : Left flank pain. DOSE: 21.0 mCi Tc99m DTPA IV MEDICATION: 40 mg Lasix IV MEDICAL HISTORY : Chronic obstructive pulmonary disease. Pyelonephritis. SURGICAL HISTORY : None. ENCOUNTER: Initial ACUITY: 2 days PAIN SCALE: 7/10 LOCATION: Left flank TECHNIQUE: Dynamic images were performed in the posterior projection for a total of 28 minutes. FINDINGS: FLOW: There is symmetric arrival of bolus to both kidneys. There is homogeneous perfusion to both kidneys. EXCRETION: There is normal renal cortical transit time and normal rate of washout from the parenchyma of the rig ht kidney. There is delayed excretion by the left collecting system. However again following Lasix ad ministration, there is good drainage of the left collecting system. CONCLUSION: Findings are very similar to the prior study of 07/15/2017. Again there is delayed excretion of the l eft collecting system that responds to Lasix administration. Romel Luke MD on September 20, 2017 at 17:30 Board Certified Radiologist. This report was verified electronically.
[2017-09-20 20:00] VITALS: BP 111/69; PULSE 80; PULSE 81; RESP 16; TEMP 98.3; O2SAT 96
[2017-09-20] MEDS: cefTRIAXone INJ 1,000 MG in SODIUM CHLORIDE 0.9% INJ 100 ML IV SCH (20:55)
[2017-09-21 00:16] VITALS: BP 121/72; PULSE 72; RESP 18; TEMP 97.6; O2SAT 96
[2017-09-21] MEDS: FAMOTIDINE 20 MG/2 ML VIAL IV PUSH SCH (01:20)
[2017-09-21] MEDS: SODIUM CHLOR 0.9% 1000 ML INJ 1,000 ML IV SCH ×2 (01:21→11:26)
[2017-09-21] MEDS: ACETAMINOPHEN/HYDROcodone 325 MG/5 MG TAB PO PRN ×2 (01:21→11:25)
[2017-09-21] MEDS: ONDANSETRON HCL 4 MG/2 ML VIAL IVP PRN (01:21)
[2017-09-21 04:11] VITALS: BP 116/69; PULSE 58; RESP 18; TEMP 98; O2SAT 96
[2017-09-21] MEDS: DOCUSATE SODIUM 50 MG/SENNA 8.6 MG TAB PO SCH (07:44)
[2017-09-21] MEDS: SODIUM CHLORIDE 0.9% FLUSH 10 ML FLUSH IV FLUSH SCH (07:44)
[2017-09-21 08:00] VITALS: BP 103/64; PULSE 62; RESP 16; TEMP 97; O2SAT 96
--- NOTE | 2017-09-21 11:33 | HHI.PR ---
Subjective Patient symptoms today feels "a little better" still notices some left flank discomfort Objective Vital Signs Vital Signs Date Time Temp Pulse Resp B/P (MAP) Pulse Ox O2 Delivery O2 Flow Rate FiO2 09/21/17 08:00 97.0 62 16 103/64 (77) 96 09/21/17 04:11 98.0 58 18 116/69 (85) 96 09/21/17 00:16 97.6 72 18 121/72 (88) 96 09/20/17 20:00 98.3 80 16 111/69 (83) 96 09/20/17 20:00 81 09/20/17 16:17 83 09/20/17 16:00 97.0 72 17 112/66 (81) 94 Intake & Output 09/21/17 09/21/17 07:00 19:00 Intake Total 1750 ml Balance 1750 ml Intake Oral 780 ml IV Total 970 ml # Voids 4 # Bowel Movements 0 Result Diagram: 09/20/17 0735 09/20/17 0735 Imaging renal scan show "sluggish" drainage which responds well to lasix. No obstruction noted Medications and IVs Current Medications Medications (Trade) Dose Ordered Sig/Justina Route Start Time Stop Time Status Last Admin Sodium Chloride 1,000 ml @ 100 mls/hr Q10H IV 09/19/17 00:53 09/21/17 11:26 (NS Flush) 2 ml UNSCH PRN IV FLUSH 09/19/17 01:00 09/19/17 16:38 (NS Flush) 2 ml BID IV FLUSH 09/19/17 09:00 09/19/17 09:21 (Zofran Inj) 4 mg Q6H PRN IVP 09/19/17 01:00 09/21/17 01:21 (Tylenol) 650 mg Q6H PRN PO 09/19/17 01:00 09/19/17 06:18 ([place] 5-325 Mg) 1 tab Q4H PRN PO 09/19/17 01:00 09/21/17 11:25 (Morphine Inj) 2 mg Q3H PRN IV PUSH 09/19/17 01:00 09/20/17 22:13 (Mckenzie-Colace) 1 tab BID PO 09/19/17 09:00 09/19/17 09:18 (Milk Of Magnesia Liq) 30 ml Q12H PRN PO 09/19/17 01:00 (Senokot) 17.2 mg Q12H PRN PO 09/19/17 01:00 (Dulcolax Supp) 10 mg DAILY PRN RECTAL 09/19/17 01:00 (Lactulose Liq) 30 ml DAILY PRN PO 09/19/17 01:00 Ceftriaxone Sodium 1000 mg/ Sodium Chloride 100 ml @ 200 mls/hr Q24H IV 09/19/17 23:00 09/20/17 20:55 (Pepcid Inj) 20 mg Q12H IV PUSH 09/19/17 02:00 09/21/17 01:20 Assessment and Plan Assessment and Plan chronic left hydro -- Discharge Planning Upon D/C she should be given an appointment to f/u with [facility]. 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 Dimitrios Oliveira MD Sep 21, 2017 11:33
[2017-09-21] MEDS ORDERED: CIPR-9 PO (11:51)
--- NOTE | 2017-09-21 16:29 | HHI.PR ---
Subjective Remarks Feeling slightly better today, discussed with her the need to follow up with the urologist and with wide load escort after discharge Renal scan came back on remarkable or change from previous study, cleared by urology for discharge Objective Vitals Vital Signs Date Time Temp Pulse Resp B/P (MAP) Pulse Ox O2 Delivery O2 Flow Rate FiO2 09/21/17 08:00 97.0 62 16 103/64 (77) 96 09/21/17 04:11 98.0 58 18 116/69 (85) 96 09/21/17 00:16 97.6 72 18 121/72 (88) 96 09/20/17 20:00 98.3 80 16 111/69 (83) 96 09/20/17 20:00 81 I/O 09/20/17 09/20/17 09/20/17 09/21/17 09/21/17 09/21/17 07:00 15:00 23:00 07:00 15:00 23:00 Intake Total 1050 ml 2056 ml 1650 ml Balance 1050 ml 2056 ml 1650 ml Intake Oral 1084 ml 780 ml IV Total 1050 ml 972 ml 870 ml # Voids 6 4 # Bowel Movements 0 0 Result Diagram: 09/20/17 0735 09/20/17 0735 Objective Remarks GENERAL: This is a well-nourished, well-developed patient, in no apparent distress. SKIN: No rashes, warm and dry HEAD: Atraumatic. Normocephalic. EYES: Pupils equal round and reactive. Extraocular motions intact. No scleral icterus. ENT: Nose without bleeding, or drainage, Airway patent. NECK: Trachea midline. Supple CARDIOVASCULAR: Regular rate and rhythm without murmurs, gallops, or rubs. RESPIRATORY: Fair air entry bilaterally. No wheezes, rales, or rhonchi. GASTROINTESTINAL: Abdomen soft, tender on the left flank, nondistended. Positive bowel sounds MUSCULOSKELETAL: Extremities without clubbing, cyanosis, or edema. Pedal pulses appreciated NEUROLOGICAL: Awake and alert. Moves all extremity. Normal speech.no focal neurological deficit A/P Problem List: (1) Sepsis ICD Code: A41.9 - Sepsis, unspecified organism (2) UTI (urinary tract infection) ICD Code: N39.0 - Urinary tract infection, site not specified (3) Hydronephrosis ICD Code: N13.30 - Unspecified hydronephrosis (4) Adnexal cyst ICD Code: N94.9 - Unspecified condition associated with female genital organs and menstrual cycle Assessment and Plan 1. Sepsis: Temp 100.0, HR 98, WBC 20, Source-UTI. S/p Urine Culture, Rocephin in ER. Follow up cultures, continue IV Abx. 2. UTI/Pyelonephritis: Recurrent. U/a w/ UTI, continue w/ IV Abx and follow up cultures as above. IVF for hydration. 3. Hydronephrosis: CT Abd/Pelvis w/ left hydronephrosis, no obvious stone/ obstruction, images reviewed by me. Chronic, similar findings on previous admit 07/14/17, s/p eval by Dr. Ojeda, renal scan negative for obstruction. 4. Adnexal Cyst Mass: CT Abd/Pelvis w/ left adnexal cystic mass, recommendation for Pelvic US in 6wks. 5. DVT Prophylaxis: SCD/Teds. 09/20: Appreciate Urology consultation order renal scan, if this came negative they cleared her to be discharged and follow as an outpatient however patient doesn't feel well at all still having the pain fever and nausea, renal scan still pending D/W patient 09/21: Renal scan came back without major change from previous study, cleared by neurology for discharge Discharge Planning Discharge patient to home Condition on discharge: Improved Regular Diet as tolerated Ad Bethany activity Rx written: Cipro Follow-up with primary care physician, urology, gynecology within 1 week Henrik Eddy MD Sep 21, 2017 16:29
== END 2017-09-21 13:08 | disposition home or self-care (01) | DRG 872 ==
LOC: NEPC 21:20 → NEDA 09-19 01:31 → N07B 09-19 03:27
PROVIDERS: ADMIT Hospitalist; ATTEND Hospitalist
DX: A41.9 Sepsis, unspecified organism (principal); N13.30 Unspecified hydronephrosis; N39.0 Urinary tract infection, site not specified; N80.9 Endometriosis, unspecified; F41.9 Anxiety disorder, unspecified; N83.8 Other noninflammatory disorders of ovary, fallopian tube and broad ligament; F17.210 Nicotine dependence, cigarettes, uncomplicated; Z87.440 Personal history of urinary (tract) infections
CPT/HCPCS: 74176; 78708; 80048; 80053; 81001; 83605; 84703; 85025; 87077; 87086; 87186; 96365; 96375; A9539; J0696; J1885; J1940; J2270; J2405; J7030

== ENCOUNTER 2018-05-13 08:05 | Inpatient (IN) ==
[2018-05-13] MEDS ORDERED: Sod Chloride 0.9% Inj 1,000 ML IV.SIG ONE ×2 (08:30→09:27)
[2018-05-13] MEDS ORDERED: Morphine Inj 4 MG/ML Vial IV.PUSH ONE ×2 (08:30→09:54)
--- NOTE | 2018-05-13 09:06 | ED ---
HPI General Chief complaint: Urogenital-Female Stated complaint: GI Time Seen by Provider: 05/13/18 08:22 Source: patient, RN notes reviewed and old records reviewed Mode of arrival: ambulatory History of Present Illness HPI narrative: 28yF presenting with left flank pain and fever. The patient states that this morning she woke up with sudden-onset "sharp/ stabbing" left flank pain which is severe, constant, non-radiating, not made better or worse by anything, and associated with tactile fevers/ chills, nausea, and dysuria. Denies chest pain, cough, vomiting, diarrhea, or hematuria. History of pyelonephritis/ sepsis and kidney stones. Related Data Home Medications Medication Instructions Recorded Confirmed No Known Home Medications 05/13/18 05/13/18 Allergies Allergy/AdvReac Type Severity Reaction Status Date / Time medroxyprogesterone Allergy Severe HIVES Verified 05/13/18 08:45 Sulfa (Sulfonamide Allergy Severe HIVES Verified 05/13/18 08:45 Antibiotics) Review of Systems ROS: all other systems reviewed are negative Constitutional Reports fever(s) Eyes Denies blurry vision ENT Denies nasal congestion Cardiovascular Denies chest pain Respiratory Denies cough Gastrointestinal Reports nausea Genitourinary Denies hematuria and Reports dysuria Musculoskeletal Reports back pain Neurologic Denies confusion Psychiatric Denies confusion PMFSH History History Provided By: Patient Medical History Medical History Kidney infection (Acute) Kidney stone (Acute) Surgical History Surgical History No history of previous surgery (Acute) Social History Social History Substance History: No History of Abuse Smoking Status: Light tobacco smoker Tobacco Type: Cigarettes How Often Do You Have a Drink Containing Alcohol: 2 to 3 times a week Recent Travel in [facility] within the Last 8 Weeks: No Recent Out of Country Travel within the Last 8 Weeks: No Immunization History Tetanus Immunization: Unsure Hx Influenza Vaccine This Season: Yes Exam Const General: healthy appearing and no acute distress HENMT Head: normocephalic and atraumatic Face and sinus: normal facial exam Eyes General: appearance normal, both eyes and all related structures Pupils: PERRL Chest Chest: normal inspection of the chest Resp Effort & Inspection: normal respiratory effort Auscultation: no rhonchi and no wheezes Cardio Rate: tachycardic Rhythm: regular rhythm GI Inspection: non-distended Palpation: soft and nontender Other: (+) left CVA tenderness Skin General: no rashes or lesions noted Neuro General: alert, awake, oriented x3 and no focal motor deficits Psych Affect: normal affect Course Initial Documented Vital Signs Temperature 99.3 F 05/13/18 08:10 Pulse Rate 131 H 05/13/18 08:10 Respiratory Rate 20 05/13/18 08:10 Blood Pressure 164/76 H 05/13/18 08:10 Last Documented Vital Signs Temperature 100.5 F H 05/13/18 10:13 Pulse Rate 97 H 05/13/18 08:48 Respiratory Rate 12 05/13/18 08:48 Blood Pressure 115/67 05/13/18 08:48 Pulse Oximetry 98 05/13/18 08:48 Medical Decision Making MDM Narrative Medical decision making narrative: Assessment: 28yF presenting with left flank pain and fever Plan: Pain control, antiemetics, IV fluids Labs UA, UCG CT abd/ pelvis Addendum: Patient found to have sepsis secondary to complicated pyelonephritis/ hydronephrosis. She will need IV antibiotics, IV fluids, urology consult, possible urology intervention, and re-evaluation at frequent intervals. I explained the results of all labs and imaging to the patient as well as plan to keep her in the hospital; she understands and agrees. Case discussed with Dr. Philippe ( resident), patient to be admitted to Dr. Lewis. Medical Screen Exam Complete: Yes Emergency Medical Condition: Yes Differential Diagnosis Differential Diagnosis: Differential diagnosis includes, but is not limited to: UTI/ pyelonephritis, nephrolithiasis, sepsis/ SIRS, ectopic/ intrauterine Medical Records Medical records reviewed: Yes I reviewed the patient's medical records. Lab Data Lab results reviewed: Yes I reviewed the patient's lab results. Result diagrams: 05/13/18 08:25 05/13/18 08:25 Lab Results 05/13/18 05/13/18 05/13/18 Range/Units 08:25 08:25 08:45 WBC 17.2 H (4.0-11.0) th/mm3 RBC 4.31 (4.00-5.30) mil/mm3 Hgb 14.1 (11.6-15.3) gm/dL Hct 42.2 (35.0-46.0) % MCV 98.0 (80.0-100.0) fL MCH 32.8 (27.0-34.0) pg MCHC 33.4 (32.0-36.0) % RDW 13.3 (11.6-17.2) % Plt Count 328 (150-450) th/mm3 MPV 7.7 (7.0-11.0) fL Neut % (Auto) 85.5 H (16.0-70.0) % Lymph % (Auto) 7.6 L (9.0-44.0) % Dale % (Auto) 6.5 (0.0-8.0) % Eos % (Auto) 0.1 (0.0-4.0) % Baso % (Auto) 0.3 (0.0-2.0) % Neut # (Auto) 14.7 H (1.8-7.7) th/mm3 Lymph # (Auto) 1.3 (1.0-4.8) th/mm3 Dale # (Auto) 1.1 H (0.0-0.9) th/mm3 Eos # (Auto) 0.0 (0.0-0.4) th/mm3 Baso # (Auto) 0.0 (0.0-0.2) th/mm3 WBC Differential . Differential Comment Auto diff final Sodium 140 (136-145) meq/L Potassium 3.7 (3.5-5.1) meq/L Chloride 106 (98-107) meq/L Carbon Dioxide 25.6 (21.0-32.0) meq/L Anion Gap 8 (5-15) meq/L BUN 6 L (7-18) mg/dL Creatinine 0.77 (0.50-1.00) mg/dL Estimated GFR Greater than 89 (>89) mL/min Random Glucose 82 (74-106) mg/dL Lactic Acid 3.1 H (0.4-2.0) mmol/L Calcium 8.5 (8.5-10.1) mg/dL Total Bilirubin 0.3 (0.2-1.0) mg/dL AST 20 (15-37) U/L ALT 21 (10-53) U/L Alkaline Phosphatase 96 (45-117) U/L Total Protein 7.6 (6.4-8.2) g/dL Albumin 3.7 (3.4-5.0) g/dL Lipase 85 (73-393) U/L Urine Color (Yellw/Straw) Urine Clarity (Clear) Urine pH (5.0-8.5) Ur Specific Murchison (1.002-1.035) Urine Protein (Neg-Trace) mg/dL Urine Glucose (UA) (Negative) mg/dL Urine Ketones (Negative) mg/dL Urine Occult Blood (Negative) Urine Nitrate (Negative) Urine Bilirubin (Negative) Urine Urobilinogen (Less than 2) mg/dL Ur Leukocyte Esterase (Negative) Urine RBC (0-3) /hpf Urine WBC (0-5) /hpf Urine WBC Clumps (None) Ur Squamous Epith Cells (0-5) /hpf Urine Bacteria (None) /hpf Micro UA Comment Urine Culture Comments 05/13/18 Range/Units 09:25 WBC (4.0-11.0) th/mm3 RBC (4.00-5.30) mil/mm3 Hgb (11.6-15.3) gm/dL Hct (35.0-46.0) % MCV (80.0-100.0) fL MCH (27.0-34.0) pg MCHC (32.0-36.0) % RDW (11.6-17.2) % Plt Count (150-450) th/mm3 MPV (7.0-11.0) fL Neut % (Auto) (16.0-70.0) % Lymph % (Auto) (9.0-44.0) % Dale % (Auto) (0.0-8.0) % Eos % (Auto) (0.0-4.0) % Baso % (Auto) (0.0-2.0) % Neut # (Auto) (1.8-7.7) th/mm3 Lymph # (Auto) (1.0-4.8) th/mm3 Dale # (Auto) (0.0-0.9) th/mm3 Eos # (Auto) (0.0-0.4) th/mm3 Baso # (Auto) (0.0-0.2) th/mm3 WBC Differential Differential Comment Sodium (136-145) meq/L Potassium (3.5-5.1) meq/L Chloride (98-107) meq/L Carbon Dioxide (21.0-32.0) meq/L Anion Gap (5-15) meq/L BUN (7-18) mg/dL Creatinine (0.50-1.00) mg/dL Estimated GFR (>89) mL/min Random Glucose (74-106) mg/dL Lactic Acid (0.4-2.0) mmol/L Calcium (8.5-10.1) mg/dL Total Bilirubin (0.2-1.0) mg/dL AST (15-37) U/L ALT (10-53) U/L Alkaline Phosphatase (45-117) U/L Total Protein (6.4-8.2) g/dL Albumin (3.4-5.0) g/dL Lipase (73-393) U/L Urine Color Yellow (Yellw/Straw) Urine Clarity Hazy H (Clear) Urine pH 7.0 (5.0-8.5) Ur Specific M[place] 1.008 (1.002-1.035) Urine Protein 100 H (Neg-Trace) mg/dL Urine Glucose (UA) Negative (Negative) mg/dL Urine Ketones Negative (Negative) mg/dL Urine Occult Blood Moderate H (Negative) Urine Nitrate Negative (Negative) Urine Bilirubin Negative (Negative) Urine Urobilinogen Less than 2 (Less than 2) mg/dL Ur Leukocyte Esterase Large H (Negative) Urine RBC 9 H (0-3) /hpf Urine WBC 165 H (0-5) /hpf Urine WBC Clumps Few H (None) Ur Squamous Epith Cells <1 (0-5) /hpf Urine Bacteria Occasional H (None) /hpf Micro UA Comment Culture indicated Urine Culture Comments Culture indicated Imaging Data Radiologist's impression: Abdomen/Pelvis CT 05/13/18 08:30 CONCLUSION: 1. Persistent severe left-sided hydroureteronephrosis with perinephric stranding concerning for possible superimposed pyelonephritis. Etiology is unclear. Patient does have a persistent 3 cm left adnexal cystic lesion which was present on January 11, 2017 CT exam prior to development of hydronephrosis. Hydronephrosis has been evaluated with multiple CTs and renograms demonstrating sluggish flow but no definitive mechanical obstruction. Consider endometriosis as potential etiology. Patient may benefit from ureteral stent placement. Consider urology consultation. 2. Prominent left retroperitoneal lymph node and additional subcentimeter retroperitoneal adenopathy, likely reactive/infectious in etiology. Discharge Plan Physicians Team ED Provider: Brandi Lassiter Primary Care Provider: Primary Care Sherry,No Other Providers: Tera Salinas Rxs /Orders / Referrals /Forms Prescriptions: No Action No Known Home Medications RF: 0 Discharge Interventions Interventions: Vital Signs Last Done: 05/13/18 10:13 Status ED Status: With Doctor
[2018-05-13 09:11] LABS: Baso % (Auto) 0.3 % (0.0-2.0); Eos % (Auto) 0.1 % (0.0-4.0); Hematocrit 42.2 % (35.0-46.0); Hemoglobin 14.1 gm/dL (11.6-15.3); Lymph # (Auto) 1.3 th/mm3 (1.0-4.8); Lymph % (Auto) 7.6 % (9.0-44.0); Mean Corpuscular HGB Conc 33.4 % (32.0-36.0); Mean Corpuscular Hemoglobin 32.8 pg (27.0-34.0); Mean Platelet Volume 7.7 fL (7.0-11.0); Mono # (Auto) 1.1 th/mm3 (0.0-0.9); Mono % (Auto) 6.5 % (0.0-8.0); Neut # (Auto) 14.7 th/mm3 (1.8-7.7); Neut % (Auto) 85.5 % (16.0-70.0); Platelet Count 328 th/mm3 (150-450); Red Blood Count 4.31 mil/mm3 (4.00-5.30); Red Cell Distribution Width 13.3 % (11.6-17.2); White Blood Count 17.2 th/mm3 (4.0-11.0)
[2018-05-13 09:33] LABS: Albumin 3.7 g/dL (3.4-5.0); Anion Gap 8 meq/L (5-15); Aspartate Aminotransferase 20 U/L (15-37); Blood Urea Nitrogen 6 mg/dL (7-18); Calcium 8.5 mg/dL (8.5-10.1); Carbon Dioxide 25.6 meq/L (21.0-32.0); Chloride 106 meq/L (98-107); Glomerular Filtration Rate Greater Than 89 mL/min (>89); Glucose,Random 82 mg/dL (74-106); Lipase 85 U/L (73-393); Potassium 3.7 meq/L (3.5-5.1); Sodium 140 meq/L (136-145)
[2018-05-13 09:35] LABS: Alanine Aminotransferase 21 U/L (10-53)
[2018-05-13 09:36] LABS: Alkaline Phosphatase 96 U/L (45-117); Total Protein 7.6 g/dL (6.4-8.2)
[2018-05-13 09:44] LABS: Bacteria,Urine Occasional /hpf; Bilirubin,Urine Negative (Negative); Clarity,Urine Hazy (Clear); Color,Urine Yellow (Yellw/Straw); Glucose,Urine (UA) Negative (Negative); Leukocyte Esterase,Urine Large (Negative); Nitrite,Urine Negative (Negative); Specific Gravity,Urine 1.008 (1.002-1.035); Squamous Epithelial Cell,Urine <1 /hpf (0-5)
--- NOTE | 2018-05-13 11:04 | CT ---
EXAM DATE: 05/13/2018 10:05 AM EDT AGE/SEX: 28 years / Female INDICATIONS: Left flank pain. CLINICAL DATA: This is the patient's initial encounter. Patient reports that signs and symptoms have been present for 1 day and indicates a pain score of 7/10. MEDICAL/SURGICAL HISTORY: Renal calculi. None. RADIATION DOSE: 7.90 CTDI (mGy) [place] [facility] [place] 01/11/2017, 07/14/2017, and 07/30/2017 and 2016. . TECHNIQUE: Multiple contiguous axial images were obtained through the abdomen. Images were obtained using multiple row detector helical technique. Using automated exposure control and adjustment of the mA and/or kV according to patient size, radiation dose was kept as low as reasonably achievable to o btain optimal diagnostic quality images. DICOM format image data is available electronically for rev iew and comparison. FINDINGS: LOWER LUNGS: The visualized lower lungs are clear. LIVER: Visualized portions of the liver are homogeneous in density without hepatic lobe ductal dilat ation. Gallbladder appears unremarkable by CT. SPLEEN: Homogeneous density without enlargement. PANCREAS: Unremarkable without mass or calcification. KIDNEYS: Redemonstration of severe left sided hydroureteronephrosis extending to the region of the U VJ. This is similar to multiple prior CT examinations but new since 01/11/2017 exam. Small cyst in the superior pole is stable from prior 01/11/2017 CT exam. Right kidney is normal in appearance. ADRENAL GLANDS: Unremarkable. AORTA: Kary-aneurysmal. BOWEL/MESENTERY: The bowel loops are grossly unremarkable. Normal appendix. The cecum and sigmoid c olon have a normal configuration. No significant free fluid or drainable fluid collection. No free ai r. ABDOMINAL WALL: Intact. RETROPERITONEUM: Single prominent 1.8 cm left periaortic node. Additional retroperitoneal nodes whic h do not meet CT size criteria. BLADDER: Contours are smooth. REPRODUCTIVE: Redemonstration of 3.1 cm left adnexal cyst which has been previously evaluated multip le ultrasound exams. This left adnexal abnormality was present prior to patient developing hydronephr osis on 01/11/2017. BONY STRUCTURES: Unremarkable. CONCLUSION: 1. Persistent severe left-sided hydroureteronephrosis with perinephric stranding concerning for poss ible superimposed pyelonephritis. Etiology is unclear. Patient does have a persistent 3 cm left adnex al cystic lesion which was present on January 11, 2017 CT exam prior to development of hydronephrosis. Hydronephrosis has been evaluated with multiple CTs and renograms demonstrating sluggish flow but no definitive mechanical obstruction. Consider endometriosis as potential etiology. Patient may benefit from ureteral stent placement. Consider urology consultation. 2. Prominent left retroperitoneal lymph node and additional subcentimeter retroperitoneal adenopathy , likely reactive/infectious in etiology. Electronically signed by: Neil Lynn MD 05/13/2018 11:03 AM EDT
[2018-05-13] MEDS ORDERED: Bisacodyl 10 MG Supp RECTAL PRN (12:28)
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
[2018-05-13] MEDS: Sod Chloride 0.9% Inj 1,000 ML IV.CONT SCH ×3 (13:34→23:10)
[2018-05-13] MEDS: Morphine Inj 4 MG/ML Vial IV.PUSH PRN ×2 (16:43→21:21)
[2018-05-13] MEDS: Acetaminophen 325 MG Tablet PO PRN (16:48)
[2018-05-13] MEDS ORDERED: Pantoprazole Inj 40 MG Vial IV.PUSH ONE (23:56)
[2018-05-14] MEDS: Morphine Inj 4 MG/ML Vial IV.PUSH PRN ×5 (02:54→22:24)
[2018-05-14] MEDS: Acetaminophen 325 MG Tablet PO PRN (05:28)
[2018-05-14 06:52] LABS: Baso % (Auto) 0.3 % (0.0-2.0); Eos % (Auto) 0.3 % (0.0-4.0); Hematocrit 35.9 % (35.0-46.0); Hemoglobin 12.1 gm/dL (11.6-15.3); Lymph # (Auto) 1.8 th/mm3 (1.0-4.8); Lymph % (Auto) 12.8 % (9.0-44.0); Mean Corpuscular HGB Conc 33.6 % (32.0-36.0); Mean Corpuscular Hemoglobin 32.7 pg (27.0-34.0); Mean Corpuscular Volume 97.2 fL (80.0-100.0); Mono # (Auto) 1.1 th/mm3 (0.0-0.9); Mono % (Auto) 7.9 % (0.0-8.0); Neut % (Auto) 78.7 % (16.0-70.0); Platelet Count 243 th/mm3 (150-450); Red Cell Distribution Width 13.3 % (11.6-17.2); White Blood Count 13.9 th/mm3 (4.0-11.0)
[2018-05-14 07:18] LABS: Alanine Aminotransferase 14 U/L (10-53); Albumin 2.7 g/dL (3.4-5.0); Alkaline Phosphatase 72 U/L (45-117); Anion Gap 7 meq/L (5-15); Aspartate Aminotransferase 12 U/L (15-37); Blood Urea Nitrogen 5 mg/dL (7-18); Calcium 7.7 mg/dL (8.5-10.1); Chloride 108 meq/L (98-107); Glomerular Filtration Rate 82 mL/min (>89); Glucose,Random 101 mg/dL (74-106); Potassium 3.3 meq/L (3.5-5.1); Sodium 140 meq/L (136-145); Total Protein 5.9 g/dL (6.4-8.2)
[2018-05-14] MEDS: Sod Chloride 0.9% Inj 1,000 ML IV.CONT SCH ×2 (08:17→18:45)
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
[2018-05-15] MEDS: Morphine Inj 4 MG/ML Vial IV.PUSH PRN ×5 (02:53→22:33)
[2018-05-15] MEDS: Sod Chloride 0.9% Inj 1,000 ML IV.CONT SCH ×2 (05:01→14:30)
[2018-05-15 06:30] LABS: Baso # (Auto) 0.1 th/mm3 (0.0-0.2); Baso % (Auto) 0.6 % (0.0-2.0); Eos # (Auto) 0.1 th/mm3 (0.0-0.4); Eos % (Auto) 0.7 % (0.0-4.0); Hematocrit 34.4 % (35.0-46.0); Hemoglobin 11.6 gm/dL (11.6-15.3); Lymph # (Auto) 1.4 th/mm3 (1.0-4.8); Lymph % (Auto) 13.7 % (9.0-44.0); Mean Corpuscular HGB Conc 33.7 % (32.0-36.0); Mean Corpuscular Hemoglobin 32.9 pg (27.0-34.0); Mean Corpuscular Volume 97.5 fL (80.0-100.0); Mono # (Auto) 0.7 th/mm3 (0.0-0.9); Mono % (Auto) 7.2 % (0.0-8.0); Neut % (Auto) 77.8 % (16.0-70.0); Platelet Count 251 th/mm3 (150-450); Red Blood Count 3.53 mil/mm3 (4.00-5.30); Red Cell Distribution Width 13.3 % (11.6-17.2); White Blood Count 10.3 th/mm3 (4.0-11.0)
[2018-05-15 06:55] LABS: Albumin 2.5 g/dL (3.4-5.0); Anion Gap 7 meq/L (5-15); Aspartate Aminotransferase 18 U/L (15-37); Blood Urea Nitrogen 3 mg/dL (7-18); Calcium 7.8 mg/dL (8.5-10.1); Carbon Dioxide 26.8 meq/L (21.0-32.0); Chloride 107 meq/L (98-107); Glomerular Filtration Rate Greater Than 89 mL/min (>89); Glucose,Random 96 mg/dL (74-106); Potassium 3.5 meq/L (3.5-5.1); Sodium 141 meq/L (136-145)
[2018-05-15 06:58] LABS: Alanine Aminotransferase 13 U/L (10-53); Alkaline Phosphatase 65 U/L (45-117)
--- NOTE | 2018-05-15 10:36 | P.PNFP ---
Subjective Interval history: Patient seen and examined this morning. She is having some abdominal discomfort so requests a stool softener. She is also experiencing some scalp soreness at the top of her head that she attributes to her previous fevers (has felt this in the past with fevers). Otherwise, she is doing well. No fever/chills, no CP, no shortness of breath, left CVA pain is well controlled. <Erendira Philippe - 05/15/18 10:36> Results - Labs Result diagrams: 05/16/18 08:24 05/16/18 08:24 <Neha Lewis - 05/16/18 10:17> Abnormal lab results 05/16/18 05/16/18 Range/Units 08:24 08:24 RBC 3.66 L (4.00-5.30) mil/mm3 [place] % (Auto) 10.3 H (0.0-8.0) % Potassium 3.4 L (3.5-5.1) meq/L BUN 2 L (7-18) mg/dL Calcium 8.2 L (8.5-10.1) mg/dL Short CBC 05/16/18 Range/Units 08:24 WBC 7.4 (4.0-11.0) th/mm3 Hgb 11.9 (11.6-15.3) gm/dL Hct 35.8 (35.0-46.0) % Plt Count 282 (150-450) th/mm3 [facility] 05/16/18 08:24 Sodium 141 Potassium 3.4 L Chloride 107 Carbon Dioxide 28.3 BUN 2 L Creatinine 0.72 Calcium 8.2 L <Neha Lewis - 05/16/18 10:17> Abnormal lab results 05/13/18 05/15/18 05/15/18 Range/Units 09:25 05:58 05:58 RBC 3.53 L (4.00-5.30) mil/mm3 Hct 34.4 L (35.0-46.0) % Neut % (Auto) 77.8 H (16.0-70.0) % Neut # (Auto) 8.0 H (1.8-7.7) th/mm3 BUN 3 L (7-18) mg/dL Calcium 7.8 L (8.5-10.1) mg/dL Total Protein 6.0 L (6.4-8.2) g/dL Albumin 2.5 L (3.4-5.0) g/dL Urine Clarity Hazy H (Clear) Urine Protein 100 H (Neg-Trace) mg/dL Urine Occult Blood Moderate H (Negative) Ur Leukocyte Esterase Large H (Negative) Urine RBC 9 H (0-3) /hpf Urine WBC 165 H (0-5) /hpf Urine WBC Clumps Few H (None) Urine Bacteria Occasional H (None) /hpf Short CBC 05/15/18 Range/Units 05:58 WBC 10.3 (4.0-11.0) th/mm3 Hgb 11.6 (11.6-15.3) gm/dL Hct 34.4 L (35.0-46.0) % Plt Count 251 (150-450) th/mm3 BMP 05/15/18 05:58 Sodium 141 Potassium 3.5 Chloride 107 Carbon Dioxide 26.8 BUN 3 L Creatinine 0.74 Calcium 7.8 L Liver Function 05/15/18 Range/Units 05:58 Total Bilirubin 0.3 (0.2-1.0) mg/dL AST 18 (15-37) U/L ALT 13 (10-53) U/L Alkaline Phosphatase 65 (45-117) U/L Albumin 2.5 L (3.4-5.0) g/dL Urine 05/13/18 Range/Units 09:25 Urine Color Yellow (Yellw/Straw) Urine Clarity Hazy H (Clear) Urine pH 7.0 (5.0-8.5) Ur Specific [place] 1.008 (1.002-1.035) Urine Protein 100 H (Neg-Trace) mg/dL Urine Glucose (UA) Negative (Negative) mg/dL <Erendira Philippe G - 05/15/18 10:36> Physical Exam Vital signs: Vital Signs 05/15/18 12:00 05/15/18 16:00 05/15/18 20:00 Temperature 98.1 F 98.4 F 98.6 F Pulse Rate 69 83 75 Respiratory Rate 20 20 16 Blood Pressure 111/65 116/71 141/92 H Pulse Oximetry 95 96 95 05/16/18 00:00 05/16/18 04:00 05/16/18 08:00 Temperature 98.6 F 98.5 F 97.5 F L Pulse Rate 75 72 68 Respiratory Rate 18 18 20 Blood Pressure 127/83 124/76 137/96 H Pulse Oximetry 96 96 96 Intake & Output 05/15/18 05/16/18 05/16/18 18:59 06:59 18:59 Intake Total 1939 / 1939 1444 / 1444 100 / 100 Output Total 1949 1150 / 1150 Balance -10 / -10 294 / 294 100 / 100 Weight 63.8 kg Intake: IV 1100 / 1100 1000 / 1000 100 / 100 NS Inj 1,000 ML @ 100 mls/hr IV 1000 / 1000 1000 / 1000 .CONT .Q10H [facility] Rx#:[id number] Rocephin Inj 1,000 MG In NS Inj 100 / 100 100 / 100 100 ML @ 200 mls/hr IV.SIG Q24H [facility] Rx#:[id number] Oral 840 / 840 444 / 444 Output: Urine 1949 1150 / 1150 Other: # Bowel Movements 0 <Neha Lewis M - 05/16/18 10:17> Vital Signs 05/14/18 12:00 05/14/18 16:00 05/14/18 20:00 Temperature 97.7 F 99.4 F 99.2 F Pulse Rate 71 84 83 Respiratory Rate 20 20 16 Blood Pressure 104/64 115/65 119/74 Pulse Oximetry 97 97 97 05/15/18 00:00 05/15/18 04:00 05/15/18 08:00 Temperature 98.2 F 98.0 F Pulse Rate 96 H 85 84 Respiratory Rate 16 20 Blood Pressure 111/70 122/83 Pulse Oximetry 97 96 Intake & Output 05/14/18 05/15/18 05/15/18 18:59 06:59 18:59 Intake Total 2099 1720 / 1720 Output Total 100 / 100 Balance 2099 1620 / 1620 Weight 63.9 kg Intake: IV 2099 / 2099 1000 / 1000 NS Inj 1,000 ML @ 100 mls/hr IV 1999 / 1999 1000 / 1000 .CONT .Q10H [facility] Rx#:[id number] Rocephin Inj 1,000 MG In NS Inj 100 / 100 100 ML @ 200 mls/hr IV.SIG Q24H [facility] Rx#:[id number] Oral 0 / 0 720 / 720 Output: Urine 100 / 100 Other: # Voids 5 3 # Bowel Movements 0 0 <Erendira Philippe - 05/15/18 10:36> Narrative: GENERAL: white female sitting up in bed, in no acute distress SKIN: Warm and dry. Multiple tattoos. Scalp is normal, no erythema, no signs of infection. HEAD: Atraumatic. Normocephalic. EYES: No scleral icterus. No injection or drainage. ENT: No nasal bleeding or discharge. Mucous membranes pink and moist. NECK: Trachea midline. No JVD. CARDIOVASCULAR: Regular rate and rhythm. RESPIRATORY: No accessory muscle use. Clear to auscultation. Breath sounds equal bilaterally. GASTROINTESTINAL: Abdomen soft, non-tender, nondistended. Mild left CVA tenderness MUSCULOSKELETAL: Extremities without clubbing, cyanosis, or edema. No obvious deformities. NEUROLOGICAL: Awake and alert. No obvious cranial nerve deficits. Motor grossly within normal limits. Normal speech. PSYCHIATRIC: Appropriate mood and affect; insight and judgment normal. <Erendira Philippe - 05/15/18 10:36> Assessment and Plan - Assessment (1) Sepsis Code(s): A41.9 - Sepsis, unspecified organism Status: Resolved (2) Pyelonephritis Code(s): N12 - Tubulo-interstitial nephritis, not specified as acute or chronic Status: Acute (3) Obstruction, uropathy Code(s): N13.9 - Obstructive and reflux uropathy, unspecified Status: Chronic (4) Endometritis Code(s): N71.9 - Inflammatory disease of uterus, unspecified Status: Chronic (5) Ovarian cyst Code(s): N83.209 - Unspecified ovarian cyst, unspecified side Status: Chronic (6) Nutrition, metabolism, and development symptoms Code(s): R63.8 - Other symptoms and signs concerning food and fluid intake Status: Acute (7) DVT prophylaxis Status: Acute <Neha Lewis - 05/16/18 10:17> (1) Sepsis Code(s): A41.9 - Sepsis, unspecified organism Status: Resolved Plan: 28-year-old presented to the ED meeting criteria of severe sepsis. VS on admissions of HR 131, RR 20, BP 164/76. Pt has improved clinically. Will continue current treatment. UA positive for UTI w/ leukocyte esterase, high WBC, and moderate blood. CT a abdomen with persistent severe left-sided hydroureteronephrosis -Leukocytosis on admission WBC 17.2 w/ left shift Lactic acid on admission 3.1, repeat lactic acid 1.7 Urine cx positive for Citrobacter koseri, sensitive to all tested abx -Blood culture x 1 positive for Citrobacter species 2 L IV fluid boluses received on ED Ceftriaxone 1 g every 24 hours (05/13-) Pain controlled with morphine 4 mg IV every 4h as needed Zofran 4mg IV as needed for nausea (2) Pyelonephritis Code(s): N12 - Tubulo-interstitial nephritis, not specified as acute or chronic Status: Acute Plan: See plan above (3) Obstruction, uropathy Code(s): N13.9 - Obstructive and reflux uropathy, unspecified Status: Chronic Plan: Left-sided hydroureteronephrosis with recurrent UTI's and hospitalizations due to this issue. Pt believes some of this is due to endometriosis, and may benefit as an outpt seeing a Urogynecologist Urology consulted, appreciate recommendations -Will place the patient on the OR schedule for sometime early next week for further urologic investigation to include cystoscopy, left retrograde pyelogram and left ureteroscopy. (4) Endometritis Code(s): N71.9 - Inflammatory disease of uterus, unspecified Status: Chronic Plan: Pt diagnosed and treated as a teenager. Currently does not take any medications. very unusual to have this condition at such a young age. unsure how it was diagnosed. she had depolupron for 6 months and has been fine for years (5) Ovarian cyst Code(s): N83.209 - Unspecified ovarian cyst, unspecified side Status: Chronic Plan: Pt diagnosed with ovarian cyst in the past. Does not take any medications at this time. unclear if this was physiologic but most cysts resolve on their own (6) Nutrition, metabolism, and development symptoms Code(s): R63.8 - Other symptoms and signs concerning food and fluid intake Status: Acute Plan: -Regular diet - tolerating po - Monitor and replace electrolytes as needed - Ambulate as tolerated (7) DVT prophylaxis Status: Acute Plan: Pt low risk for DVT: young, active, no hx of DVT. - SCD's bilaterally <Erendira Philippe - 05/15/18 11:23> - Assessment and Plan 28-year-old female with history of severe pyelonephritis with sepsis symptoms required several hospitalizations a year. Presenting to the ED with left flank pain, fevers, chills. Vital signs of admission notable for tachycardia, elevated respiratory rate, 100.5 F fever, and a WBC of 17.2, and lactic acid of 3.1. ED physician consulted urology and they will proceed to follow up in this case. During her ED course, pt received 1 dose of ceftriaxone and two 1 L boluses of IV fluids. Patient has been admitted to the inpatient unit, has received 1 dose of ceftriaxone, and 2 1 L boluses of IV normal saline. Blood and urine cultures show Citrobacter. Repeat lactic acid of 1.7. Urology consulted for possible stent placement and have placed pt on OR schedule for testing early next week. Patient will continue to receive IV antibiotics and continue to be monitor for signs and symptoms of sepsis. <Erendira Philippe - 05/15/18 11:36> Discussed Condition With: Dr. Lewis <Erendira Philippe - 05/15/18 11:36> Discharge Planning: pending clinical course and clearance by Urology <Erendira Philippe - 05/15/18 11:36> - Attending Attestation The exam, history, and the medical decision-making described in the above note were completed with the assistance of the resident physician. I reviewed and agree with the findings presented. I attest that I had a [id number] encounter with the patient on the same day, and personally performed and documented my assessment and findings in the medical record. She is going to stay in the hospital per urology until she has her definitive procedure which will be a early next week. <Neha Lewis - 05/16/18 10:17> <Erendira Philippe - Last Filed: 05/15/18 11:23> (1) Sepsis Qualifiers: Sepsis type: sepsis due to unspecified organism Qualified Code(s): A41.9 - Sepsis, unspecified organism <Neha Lewis - Last Filed: 05/16/18 10:17> (1) Sepsis Qualifiers: Sepsis type: sepsis due to unspecified organism Qualified Code(s): A41.9 - Sepsis, unspecified organism <Erendira Philippe - Last Filed: 05/15/18 11:23> (1) Sepsis Qualifiers: Sepsis type: sepsis due to unspecified organism Qualified Code(s): A41.9 - Sepsis, unspecified organism <Neha Lewis - Last Filed: 05/16/18 10:17> (1) Sepsis Qualifiers: Sepsis type: sepsis due to unspecified organism Qualified Code(s): A41.9 - Sepsis, unspecified organism
[2018-05-15] MEDS: Senna/Docusate Sodium 8.6/50 MG Tablet PO SCH ×2 (11:42→21:35)
[2018-05-16] MEDS: Sod Chloride 0.9% Inj 1,000 ML IV.CONT SCH ×2 (00:49→12:06)
[2018-05-16] MEDS: Morphine Inj 4 MG/ML Vial IV.PUSH PRN ×4 (03:20→20:11)
[2018-05-16] MEDS: Benzonatate 100 MG Capsule PO PRN (04:08)
[2018-05-16] MEDS: Senna/Docusate Sodium 8.6/50 MG Tablet PO SCH ×2 (08:12→20:22)
[2018-05-16 09:37] LABS: Baso % (Auto) 0.5 % (0.0-2.0); Eos # (Auto) 0.1 th/mm3 (0.0-0.4); Eos % (Auto) 1.2 % (0.0-4.0); Hematocrit 35.8 % (35.0-46.0); Hemoglobin 11.9 gm/dL (11.6-15.3); Lymph # (Auto) 1.6 th/mm3 (1.0-4.8); Mean Corpuscular HGB Conc 33.3 % (32.0-36.0); Mean Corpuscular Hemoglobin 32.6 pg (27.0-34.0); Mean Corpuscular Volume 97.9 fL (80.0-100.0); Mean Platelet Volume 8.3 fL (7.0-11.0); Mono # (Auto) 0.8 th/mm3 (0.0-0.9); Mono % (Auto) 10.3 % (0.0-8.0); Platelet Count 282 th/mm3 (150-450); Red Blood Count 3.66 mil/mm3 (4.00-5.30); White Blood Count 7.4 th/mm3 (4.0-11.0)
[2018-05-16 09:51] LABS: Anion Gap 6 meq/L (5-15); Blood Urea Nitrogen 2 mg/dL (7-18); Calcium 8.2 mg/dL (8.5-10.1); Carbon Dioxide 28.3 meq/L (21.0-32.0); Chloride 107 meq/L (98-107); Glomerular Filtration Rate Greater Than 89 mL/min (>89); Glucose,Random 90 mg/dL (74-106); Potassium 3.4 meq/L (3.5-5.1); Sodium 141 meq/L (136-145)
--- NOTE | 2018-05-16 14:01 | P.PNFP ---
Subjective Interval history: Pt doing well this morning, improving. She complained of a cough overnight, that she states is for not smoking, improving with tessalon pearls. She denies fevers, chills, chest pain, shortness of breath. She is currently peeing a lot and would like to decrease her intake. She is also constipated, but still within normal for her. <Shala Zuniga V - 05/16/18 14:00> Results - Labs Result diagrams: 05/18/18 08:54 05/18/18 08:54 <Neha Lewis M - 05/18/18 11:54> Abnormal lab results 05/18/18 05/18/18 Range/Units 08:54 08:54 RBC 3.81 L (4.00-5.30) mil/mm3 Winn % (Auto) 12.5 H (0.0-8.0) % Potassium 3.4 L (3.5-5.1) meq/L Chloride 108 H (98-107) meq/L BUN 5 L (7-18) mg/dL Alkaline Phosphatase 131 H (45-117) U/L Albumin 2.8 L (3.4-5.0) g/dL Short CBC 05/18/18 Range/Units 08:54 WBC 6.3 (4.0-11.0) th/mm3 Hgb 12.5 (11.6-15.3) gm/dL Hct 36.7 (35.0-46.0) % Plt Count 350 (150-450) th/mm3 BMP 05/18/18 08:54 Sodium 145 Potassium 3.4 L Chloride 108 H Carbon Dioxide 28.9 BUN 5 L Creatinine 0.69 Calcium 8.5 Liver Function 05/18/18 Range/Units 08:54 Total Bilirubin 0.2 (0.2-1.0) mg/dL AST 16 (15-37) U/L ALT 40 (10-53) U/L Alkaline Phosphatase 131 H (45-117) U/L Albumin 2.8 L (3.4-5.0) g/dL <Neha Lewis - 05/18/18 11:54> Abnormal lab results 05/16/18 05/16/18 Range/Units 08:24 08:24 RBC 3.66 L (4.00-5.30) mil/mm3 Winn % (Auto) 10.3 H (0.0-8.0) % Potassium 3.4 L (3.5-5.1) meq/L BUN 2 L (7-18) mg/dL Calcium 8.2 L (8.5-10.1) mg/dL Short CBC 05/16/18 Range/Units 08:24 WBC 7.4 (4.0-11.0) th/mm3 Hgb 11.9 (11.6-15.3) gm/dL Hct 35.8 (35.0-46.0) % Plt Count 282 (150-450) th/mm3 BMP 05/16/18 08:24 Sodium 141 Potassium 3.4 L Chloride 107 Carbon Dioxide 28.3 BUN 2 L Creatinine 0.72 Calcium 8.2 L <Shala Zuniga V - 05/16/18 14:00> Physical Exam Vital signs: Vital Signs 05/17/18 12:00 05/17/18 12:22 05/17/18 16:00 Temperature 97.9 F 97.9 F Pulse Rate 76 70 76 Respiratory Rate 18 18 Blood Pressure 126/64 126/64 Pulse Oximetry 97 97 05/17/18 16:12 05/17/18 20:00 05/18/18 00:00 Temperature 98.1 F 98.1 F Pulse Rate 78 69 53 L Respiratory Rate 20 20 Blood Pressure 132/88 132/88 Pulse Oximetry 98 98 05/18/18 04:00 05/18/18 08:00 05/18/18 09:00 Temperature 97.8 F 98.5 F Pulse Rate 55 L 62 63 Respiratory Rate 18 20 Blood Pressure 138/85 135/103 H Pulse Oximetry 98 95 Intake & Output 05/17/18 05/18/18 05/18/18 18:59 06:59 18:59 Intake Total 820 / 820 100 / 100 Balance 820 / 820 100 / 100 Intake: IV 100 / 100 100 / 100 Rocephin Inj 1,000 MG In NS Inj 100 / 100 100 / 100 100 ML @ 200 mls/hr IV.SIG Q24H THERESE Rx#:[id number] Oral 720 / 720 Other: # Voids 6 <Neha Lewis M - 05/18/18 11:54> Vital Signs 05/15/18 16:00 05/15/18 20:00 05/16/18 00:00 Temperature 98.4 F 98.6 F 98.6 F Pulse Rate 83 75 75 Respiratory Rate 20 16 18 Blood Pressure 116/71 141/92 H 127/83 Pulse Oximetry 96 95 96 05/16/18 04:00 05/16/18 08:00 Temperature 98.5 F 97.5 F L Pulse Rate 72 68 Respiratory Rate 18 20 Blood Pressure 124/76 137/96 H Pulse Oximetry 96 96 Intake & Output 05/15/18 05/16/18 05/16/18 18:59 06:59 18:59 Intake Total 1940 / 1940 1444 / 1444 2099 / 2099 Output Total 1949 / 1949 1150 / 1150 Balance -10 / -10 294 / 294 2099 Weight 63.8 kg Intake: IV 1100 / 1100 1000 / 1000 2099 / 2099 NS Inj 1,000 ML @ 100 mls/hr IV 1000 / 1000 1000 / 1000 2000 / 2000 .CONT .Q10H THERESE Rx#:[id number] Rocephin Inj 1,000 MG In NS Inj 100 / 100 100 / 100 100 ML @ 200 mls/hr IV.SIG Q24H THERESE Rx#:[id number] Oral 840 / 840 444 / 444 Output: Urine 1949 / 1950 1150 / 1150 Other: # Bowel Movements 0 <Erika GonzalesElizabeth - 05/16/18 14:00> Narrative: GENERAL: white female sitting up in bed, in no acute distress SKIN: Warm and dry. Multiple tattoos. HEAD: Atraumatic. Normocephalic. EYES: No scleral icterus. No injection or drainage. CARDIOVASCULAR: Regular rate and rhythm. RESPIRATORY: No accessory muscle use. Clear to auscultation. Breath sounds equal bilaterally. GASTROINTESTINAL: Abdomen soft, non-tender, nondistended. Mild left CVA tenderness MUSCULOSKELETAL: Extremities without clubbing, cyanosis, or edema. No obvious deformities. NEUROLOGICAL: Awake and alert. No obvious cranial nerve deficits. Motor grossly within normal limits. Normal speech. PSYCHIATRIC: Appropriate mood and affect; insight and judgment normal. <Shala Zuniga 05/16/18 14:00> Assessment and Plan - Assessment (1) Sepsis Code(s): A41.9 - Sepsis, unspecified organism Status: Resolved (2) Pyelonephritis Code(s): N12 - Tubulo-interstitial nephritis, not specified as acute or chronic Status: Acute (3) Obstruction, uropathy Code(s): N13.9 - Obstructive and reflux uropathy, unspecified Status: Chronic (4) Endometritis Code(s): N71.9 - Inflammatory disease of uterus, unspecified Status: Chronic (5) Ovarian cyst Code(s): N83.209 - Unspecified ovarian cyst, unspecified side Status: Chronic (6) Nutrition, metabolism, and development symptoms Code(s): R63.8 - Other symptoms and signs concerning food and fluid intake Status: Acute (7) DVT prophylaxis Status: Acute <Neha Lewis Alicia - 05/18/18 11:54> (1) Sepsis Code(s): A41.9 - Sepsis, unspecified organism Status: Resolved Plan: 28-year-old presented to the ED meeting criteria of severe sepsis. VS on admissions of HR 131, RR 20, BP 164/76. Pt has improved clinically. Will continue current treatment. UA positive for UTI w/ leukocyte esterase, high WBC, and moderate blood. CT a abdomen with persistent severe left-sided hydroureteronephrosis -Leukocytosis on admission WBC 17.2 w/ left shift Lactic acid on admission 3.1, repeat lactic acid 1.7 Urine cx positive for Citrobacter koseri, sensitive to all tested abx Blood culture x 1 positive for Citrobacter koseri Ceftriaxone 1 g every 24 hours (05/13-) Pain controlled with morphine 4 mg IV every 4h as needed Zofran 4mg IV as needed for nausea (2) Pyelonephritis Code(s): N12 - Tubulo-interstitial nephritis, not specified as acute or chronic Status: Acute Plan: See plan above (3) Obstruction, uropathy Code(s): N13.9 - Obstructive and reflux uropathy, unspecified Status: Chronic Plan: Left-sided hydroureteronephrosis with recurrent UTI's and hospitalizations due to this issue. Pt believes some of this is due to endometriosis, and may benefit as an outpt seeing a Urogynecologist Urology consulted, appreciate recommendations -Pt scheduled in the OR for Friday morning for urologic investigation to include cystoscopy, left retrograde pyelogram and left ureteroscopy. (4) Endometritis Code(s): N71.9 - Inflammatory disease of uterus, unspecified Status: Chronic Plan: Pt diagnosed and treated as a teenager. Currently does not take any medications. very unusual to have this condition at such a young age. unsure how it was diagnosed. she had depolupron for 6 months and has been fine for years (5) Ovarian cyst Code(s): N83.209 - Unspecified ovarian cyst, unspecified side Status: Chronic Plan: Pt diagnosed with ovarian cyst in the past. Does not take any medications at this time. unclear if this was physiologic but most cysts resolve on their own (6) Nutrition, metabolism, and development symptoms Code(s): R63.8 - Other symptoms and signs concerning food and fluid intake Status: Acute Plan: -Regular diet - tolerating po --> DC IV fluids - Monitor and replace electrolytes as needed - Ambulate as tolerated (7) DVT prophylaxis Status: Acute Plan: Pt low risk for DVT: young, active, no hx of DVT. - SCD's bilaterally <Shala Zuniga V - 05/16/18 13:53> - Assessment and Plan The exam, history, and the medical decision-making described in the above note were completed with the assistance of the resident physician. I reviewed and agree with the findings presented. I attest that I had a [id number] encounter with the patient on the same day, and personally performed and documented my assessment and findings in the medical record. she is stable and improved since admission <JoshuaNeha M - 05/18/18 11:54> 28-year-old female with history of severe pyelonephritis with sepsis symptoms required several hospitalizations a year. Presenting to the ED with left flank pain, fevers, chills. Vital signs of admission notable for tachycardia, elevated respiratory rate, 100.5 F fever, and a WBC of 17.2, and lactic acid of 3.1. ED physician consulted urology and they will proceed to follow up in this case. During her ED course, pt received 1 dose of ceftriaxone and two 1 L boluses of IV fluids. Patient has been admitted to the inpatient unit, has received several doses of ceftriaxone, and IV normal saline. Blood and urine cultures show Citrobacter. Pt afebrile since admission day, responding very well to treatment. Urology consulted for possible stent placement and have placed pt on OR schedule for Friday. Patient will continue to receive IV antibiotics and continue to be monitor for signs and symptoms of sepsis. <Shala Zuniga V - 05/16/18 14:00> <Shala Zuniga V - Last Filed: 05/16/18 13:53> (1) Sepsis Qualifiers: Sepsis type: sepsis due to unspecified organism Qualified Code(s): A41.9 - Sepsis, unspecified organism <Neha Lewis M - Last Filed: 05/18/18 11:54> (1) Sepsis Qualifiers: Sepsis type: sepsis due to unspecified organism Qualified Code(s): A41.9 - Sepsis, unspecified organism <Erika GonzalesElizabeth - Last Filed: 05/16/18 13:53> (1) Sepsis Qualifiers: Sepsis type: sepsis due to unspecified organism Qualified Code(s): A41.9 - Sepsis, unspecified organism <Neha Lewis - Last Filed: 05/18/18 11:54> (1) Sepsis Qualifiers: Sepsis type: sepsis due to unspecified organism Qualified Code(s): A41.9 - Sepsis, unspecified organism
[2018-05-17] MEDS: Morphine Inj 4 MG/ML Vial IV.PUSH PRN ×6 (00:44→23:17)
[2018-05-17] MEDS: Benzonatate 100 MG Capsule PO PRN ×2 (00:47→09:48)
[2018-05-17] MEDS: Senna/Docusate Sodium 8.6/50 MG Tablet PO SCH ×2 (09:35→21:29)
--- NOTE | 2018-05-17 10:32 | P.PNFP ---
Subjective Interval history: Pt see and examined this morning. She complains of having symptoms of a "UTI", burning with urination, feeling of now able to empty her bladder completely, etc. Her pain is better today, and she was reassured we are treating her infection appropriately. She has several questions regarding the procedure tomorrow that were deferred to the urology team. She denies any fevers , chills, shortness of breath, of chest pain. She still complains of constipation. <Shala Zuniga V - 05/17/18 10:32> Results - Labs Result diagrams: 05/18/18 08:54 05/18/18 08:54 <Neha Leiws - 05/18/18 11:55> Abnormal lab results 05/18/18 05/18/18 Range/Units 08:54 08:54 RBC 3.81 L (4.00-5.30) mil/mm3 Boyle % (Auto) 12.5 H (0.0-8.0) % Potassium 3.4 L (3.5-5.1) meq/L Chloride 108 H (98-107) meq/L BUN 5 L (7-18) mg/dL Alkaline Phosphatase 131 H (45-117) U/L Albumin 2.8 L (3.4-5.0) g/dL Short CBC 05/18/18 Range/Units 08:54 WBC 6.3 (4.0-11.0) th/mm3 Hgb 12.5 (11.6-15.3) gm/dL Hct 36.7 (35.0-46.0) % Plt Count 350 (150-450) th/mm3 BMP 05/18/18 08:54 Sodium 145 Potassium 3.4 L Chloride 108 H Carbon Dioxide 28.9 BUN 5 L Creatinine 0.69 Calcium 8.5 Liver Function 05/18/18 Range/Units 08:54 Total Bilirubin 0.2 (0.2-1.0) mg/dL AST 16 (15-37) U/L ALT 40 (10-53) U/L Alkaline Phosphatase 131 H (45-117) U/L Albumin 2.8 L (3.4-5.0) g/dL <Neha Lewis - 05/18/18 11:55> Physical Exam Vital signs: Vital Signs 05/17/18 12:00 05/17/18 12:22 05/17/18 16:00 Temperature 97.9 F 97.9 F Pulse Rate 76 70 76 Respiratory Rate 18 18 Blood Pressure 126/64 126/64 Pulse Oximetry 97 97 05/17/18 16:12 05/17/18 20:00 05/18/18 00:00 Temperature 98.1 F 98.1 F Pulse Rate 78 69 53 L Respiratory Rate 20 20 Blood Pressure 132/88 132/88 Pulse Oximetry 98 98 05/18/18 04:00 05/18/18 08:00 05/18/18 09:00 Temperature 97.8 F 98.5 F Pulse Rate 55 L 62 63 Respiratory Rate 18 20 Blood Pressure 138/85 135/103 H Pulse Oximetry 98 95 Intake & Output 05/17/18 05/18/18 05/18/18 18:59 06:59 18:59 Intake Total 820 / 820 100 / 100 Balance 820 / 820 100 / 100 Intake: IV 100 / 100 100 / 100 Rocephin Inj 1,000 MG In NS Inj 100 / 100 100 / 100 100 ML @ 200 mls/hr IV.SIG Q24H THERESE Rx#:[id number] Oral 720 / 720 Other: # Voids 6 <JoshuaNeha M - 05/18/18 11:55> Vital Signs 05/16/18 12:00 05/16/18 16:00 05/16/18 20:00 Temperature 97.8 F 98.1 F 98.2 F Pulse Rate 68 62 61 Respiratory Rate 20 20 18 Blood Pressure 134/86 127/89 145/95 H Pulse Oximetry 97 97 97 05/16/18 20:20 05/17/18 00:00 05/17/18 04:00 Temperature 98.3 F 97.9 F Pulse Rate 61 67 Respiratory Rate 16 18 18 Blood Pressure 129/87 132/87 Pulse Oximetry 96 96 05/17/18 08:00 Temperature 98.1 F Pulse Rate 72 Respiratory Rate 18 Blood Pressure 127/71 Pulse Oximetry 95 Intake & Output 05/16/18 05/17/18 05/17/18 18:59 06:59 18:59 Intake Total 2660 / 2660 Balance 2660 / 2660 Intake: IV 2100 / 2100 NS Inj 1,000 ML @ 100 mls/hr IV 1999 / 2000 .CONT .Q10H THERESE Rx#:[id number] Rocephin Inj 1,000 MG In NS Inj 100 / 100 100 ML @ 200 mls/hr IV.SIG Q24H THERESE Rx#:[id number] Oral 560 / 560 Other: # Voids 6 <Shala Zuniga V - 05/17/18 10:32> Narrative: GENERAL: white female sitting up in bed, in no acute distress SKIN: Warm and dry. Multiple tattoos. HEAD: Atraumatic. Normocephalic. EYES: No scleral icterus. No injection or drainage. CARDIOVASCULAR: Regular rate and rhythm. RESPIRATORY: No accessory muscle use. Clear to auscultation. Breath sounds equal bilaterally. GASTROINTESTINAL: Abdomen soft, non-tender, nondistended. Resolved CVA tenderness MUSCULOSKELETAL: Extremities without clubbing, cyanosis, or edema. No obvious deformities. NEUROLOGICAL: Awake and alert. No obvious cranial nerve deficits. Motor grossly within normal limits. Normal speech. PSYCHIATRIC: Appropriate mood and affect; insight and judgment normal. <Shala Zuniga V - 05/17/18 10:32> Assessment and Plan - Assessment (1) Sepsis Code(s): A41.9 - Sepsis, unspecified organism Status: Resolved (2) Pyelonephritis Code(s): N12 - Tubulo-interstitial nephritis, not specified as acute or chronic Status: Acute (3) Obstruction, uropathy Code(s): N13.9 - Obstructive and reflux uropathy, unspecified Status: Chronic (4) Endometritis Code(s): N71.9 - Inflammatory disease of uterus, unspecified Status: Chronic (5) Ovarian cyst Code(s): N83.209 - Unspecified ovarian cyst, unspecified side Status: Chronic (6) Nutrition, metabolism, and development symptoms Code(s): R63.8 - Other symptoms and signs concerning food and fluid intake Status: Acute (7) DVT prophylaxis Status: Acute <Neha Lewis - 05/18/18 11:55> (1) Sepsis Code(s): A41.9 - Sepsis, unspecified organism Status: Resolved Plan: 28-year-old presented to the ED meeting criteria of severe sepsis. VS on admissions of HR 131, RR 20, BP 164/76. Pt has improved clinically. Will continue current treatment. UA positive for UTI w/ leukocyte esterase, high WBC, and moderate blood. CT a abdomen with persistent severe left-sided hydroureteronephrosis -Leukocytosis on admission WBC 17.2 w/ left shift Lactic acid on admission 3.1, repeat lactic acid 1.7 Urine cx positive for Citrobacter koseri, sensitive to all tested abx -Blood culture x 1 positive for Citrobacter koseri Continue Ceftriaxone 1 g every 24 hours (05/13-) Pain controlled with morphine 4 mg IV every 4h as needed Zofran 4mg IV as needed for nausea (2) Pyelonephritis Code(s): N12 - Tubulo-interstitial nephritis, not specified as acute or chronic Status: Acute Plan: See plan above (3) Obstruction, uropathy Code(s): N13.9 - Obstructive and reflux uropathy, unspecified Status: Chronic Plan: Left-sided hydroureteronephrosis with recurrent UTI's and hospitalizations due to this issue. Pt believes some of this is due to endometriosis, and may benefit as an out pt seeing a Urogynecologist Urology consulted, appreciate recommendations -Pt scheduled in the OR for Friday morning for urologic investigation to include cystoscopy, left retrograde pyelogram and left ureteroscopy. - Will follow up recommendations (4) Endometritis Code(s): N71.9 - Inflammatory disease of uterus, unspecified Status: Chronic Plan: Pt diagnosed and treated as a teenager. Currently does not take any medications. very unusual to have this condition at such a young age. unsure how it was diagnosed. she had depolupron for 6 months and has been fine for years - Might need referral to Inserter Operator after hospitalization (5) Ovarian cyst Code(s): N83.209 - Unspecified ovarian cyst, unspecified side Status: Chronic Plan: Pt diagnosed with ovarian cyst in the past. Does not take any medications at this time. unclear if this was physiologic but most cysts resolve on their own (6) Nutrition, metabolism, and development symptoms Code(s): R63.8 - Other symptoms and signs concerning food and fluid intake Status: Acute Plan: -Regular diet - tolerating po - Monitor and replace electrolytes as needed - Ambulate as tolerated - NPO after midnight - Will start IV fluids at midnight (7) DVT prophylaxis Status: Acute Plan: Pt low risk for DVT: young, active, no hx of DVT. - SCD's bilaterally - Pt currently not using SCD's but ambulating <Shala Zuniga V - 05/17/18 10:20> - Assessment and Plan 28-year-old female with history of severe pyelonephritis with sepsis symptoms required several hospitalizations a year. Presenting to the ED with left flank pain, fevers, chills. Vital signs of admission notable for tachycardia, elevated respiratory rate, 100.5 F fever, and a WBC of 17.2, and lactic acid of 3.1. ED physician consulted urology and they will proceed to follow up in this case. During her ED course, pt received 1 dose of ceftriaxone and two 1 L boluses of IV fluids. LOS 4: Blood and urine cultures show Citrobacter. Pt afebrile since admission day, responding very well to treatment. Urology consulted for possible stent placement and have placed pt on OR schedule for Friday. Patient will continue to receive IV antibiotics and continue to be monitor for signs and symptoms of sepsis. <Shala Zuniga V - 05/17/18 10:32> - Attending Attestation The exam, history, and the medical decision-making described in the above note were completed with the assistance of the resident physician. I reviewed and agree with the findings presented. I attest that I had a [id number] encounter with the patient on the same day, and personally performed and documented my assessment and findings in the medical record. she will be having her procedure tomorrow. appreciate help of urology! Her EKG was fine <Neha Lewis M - 05/18/18 11:55> <Shala Zuniga V - Last Filed: 05/17/18 10:20> (1) Sepsis Qualifiers: Sepsis type: sepsis due to unspecified organism Qualified Code(s): A41.9 - Sepsis, unspecified organism <Neha Lewis M - Last Filed: 05/18/18 11:55> (1) Sepsis Qualifiers: Sepsis type: sepsis due to unspecified organism Qualified Code(s): A41.9 - Sepsis, unspecified organism <Shala Zuniga V - Last Filed: 05/17/18 10:20> (1) Sepsis Qualifiers: Sepsis type: sepsis due to unspecified organism Qualified Code(s): A41.9 - Sepsis, unspecified organism <Neha Lewis M - Last Filed: 05/18/18 11:55> (1) Sepsis Qualifiers: Sepsis type: sepsis due to unspecified organism Qualified Code(s): A41.9 - Sepsis, unspecified organism
[2018-05-17 10:48] LABS: Hematocrit 36.6 % (35.0-46.0); Hemoglobin 12.4 gm/dL (11.6-15.3); Mean Corpuscular HGB Conc 33.9 % (32.0-36.0); Mean Corpuscular Hemoglobin 33.2 pg (27.0-34.0); Mean Corpuscular Volume 97.8 fL (80.0-100.0); Mean Platelet Volume 7.9 fL (7.0-11.0); Platelet Count 329 th/mm3 (150-450); Red Blood Count 3.75 mil/mm3 (4.00-5.30)
[2018-05-17 11:15] LABS: Albumin 2.9 g/dL (3.4-5.0); Anion Gap 6 meq/L (5-15); Aspartate Aminotransferase 28 U/L (15-37); Blood Urea Nitrogen 4 mg/dL (7-18); Calcium 8.5 mg/dL (8.5-10.1); Carbon Dioxide 31.2 meq/L (21.0-32.0); Chloride 104 meq/L (98-107); Glomerular Filtration Rate Greater Than 89 mL/min (>89); Glucose,Random 84 mg/dL (74-106); Potassium 3.6 meq/L (3.5-5.1); Sodium 141 meq/L (136-145)
[2018-05-17 11:35] LABS: Alanine Aminotransferase 56 U/L (10-53); Alkaline Phosphatase 142 U/L (45-117); Total Protein 6.9 g/dL (6.4-8.2)
[2018-05-17] MEDS: Acetaminophen 325 MG Tablet PO PRN (16:15)
[2018-05-17] MEDS: Sod Chloride 0.9% Inj 1,000 ML IV.CONT SCH (23:18)
[2018-05-18] MEDS ORDERED: Metoprolol Tartrate 25 MG Tablet PO SCH (00:30)
[2018-05-18] MEDS ORDERED: Chlorhexidine Gluconate 2% 1 Pack (2 Cloths) TOPICAL SCH (00:30)
[2018-05-18] MEDS ORDERED: Sodium Chlor 0.9% Inj 500 ML IV.SIG SCH (01:00)
[2018-05-18] MEDS: Morphine Inj 4 MG/ML Vial IV.PUSH PRN ×2 (04:15→08:55)
[2018-05-18] MEDS: Senna/Docusate Sodium 8.6/50 MG Tablet PO SCH (08:37)
[2018-05-18] MEDS: Benzonatate 100 MG Capsule PO PRN (08:55)
[2018-05-18 09:43] LABS: Baso % (Auto) 0.6 % (0.0-2.0); Eos # (Auto) 0.1 th/mm3 (0.0-0.4); Eos % (Auto) 1.9 % (0.0-4.0); Hematocrit 36.7 % (35.0-46.0); Hemoglobin 12.5 gm/dL (11.6-15.3); Lymph # (Auto) 1.6 th/mm3 (1.0-4.8); Mean Corpuscular HGB Conc 34.1 % (32.0-36.0); Mean Corpuscular Hemoglobin 32.9 pg (27.0-34.0); Mean Corpuscular Volume 96.4 fL (80.0-100.0); Mean Platelet Volume 7.7 fL (7.0-11.0); Mono # (Auto) 0.8 th/mm3 (0.0-0.9); Mono % (Auto) 12.5 % (0.0-8.0); Neut # (Auto) 3.7 th/mm3 (1.8-7.7); Platelet Count 350 th/mm3 (150-450); Red Blood Count 3.81 mil/mm3 (4.00-5.30); White Blood Count 6.3 th/mm3 (4.0-11.0)
[2018-05-18 10:05] LABS: Albumin 2.8 g/dL (3.4-5.0); Anion Gap 8 meq/L (5-15); Aspartate Aminotransferase 16 U/L (15-37); Blood Urea Nitrogen 5 mg/dL (7-18); Calcium 8.5 mg/dL (8.5-10.1); Carbon Dioxide 28.9 meq/L (21.0-32.0); Chloride 108 meq/L (98-107); Glomerular Filtration Rate Greater Than 89 mL/min (>89); Glucose,Random 84 mg/dL (74-106); Potassium 3.4 meq/L (3.5-5.1); Sodium 145 meq/L (136-145)
[2018-05-18 10:10] LABS: Alanine Aminotransferase 40 U/L (10-53); Alkaline Phosphatase 131 U/L (45-117); Total Protein 6.7 g/dL (6.4-8.2)
[2018-05-18] MEDS ORDERED: Lidocaine PF 1% Inj 5 ML Syringe INFILTRATN ONE (12:00)
[2018-05-18] MEDS ORDERED: Morphine Sulfate Inj 2 MG/ML Vial IV.PUSH PRN (13:41)
--- NOTE | 2018-05-18 13:54 | P.PNFP ---
Subjective Interval history: Pt doing well today, ready for her procedure which is scheduled this afternoon. She has no complains today. Denies fever, nausea, vomiting. She is still constipated. <Shala Zuniga V - 05/18/18 13:53> Results - Labs Result diagrams: 05/19/18 06:04 05/19/18 06:04 <Joshua,Neha M - 05/19/18 12:21> Abnormal lab results 05/19/18 05/19/18 Range/Units 06:04 06:04 RBC 3.74 L (4.00-5.30) mil/mm3 Neut % (Auto) 78.8 H (16.0-70.0) % [place] % (Auto) 8.8 H (0.0-8.0) % Lymph # (Auto) 0.9 L (1.0-4.8) th/mm3 BUN 6 L (7-18) mg/dL Short CBC 05/19/18 Range/Units 06:04 WBC 7.5 (4.0-11.0) th/mm3 Hgb 12.4 (11.6-15.3) gm/dL Hct 35.8 (35.0-46.0) % Plt Count 403 (150-450) th/mm3 [facility] 05/19/18 06:04 Sodium 140 Potassium 3.6 Chloride 105 Carbon Dioxide 29.4 BUN 6 L Creatinine 0.62 Calcium 8.5 <JoshuaJamesonNeha M - 05/19/18 12:21> Abnormal lab results 05/18/18 05/18/18 Range/Units 08:54 08:54 RBC 3.81 L (4.00-5.30) mil/mm3 [place] % (Auto) 12.5 H (0.0-8.0) % Potassium 3.4 L (3.5-5.1) meq/L Chloride 108 H (98-107) meq/L BUN 5 L (7-18) mg/dL Alkaline Phosphatase 131 H (45-117) U/L Albumin 2.8 L (3.4-5.0) g/dL Short CBC 05/18/18 Range/Units 08:54 WBC 6.3 (4.0-11.0) th/mm3 Hgb 12.5 (11.6-15.3) gm/dL Hct 36.7 (35.0-46.0) % Plt Count 350 (150-450) th/mm3 BMP 05/18/18 08:54 Sodium 145 Potassium 3.4 L Chloride 108 H Carbon Dioxide 28.9 BUN 5 L Creatinine 0.69 Calcium 8.5 Liver Function 05/18/18 Range/Units 08:54 Total Bilirubin 0.2 (0.2-1.0) mg/dL AST 16 (15-37) U/L ALT 40 (10-53) U/L Alkaline Phosphatase 131 H (45-117) U/L Albumin 2.8 L (3.4-5.0) g/dL <Shala Zuniga V - 05/18/18 13:53> Physical Exam Vital signs: Vital Signs 05/18/18 13:51 05/18/18 14:00 05/18/18 14:15 Temperature 97.8 F Pulse Rate 78 64 68 Respiratory Rate 16 16 16 Blood Pressure 127/72 145/83 H 142/80 H Pulse Oximetry 98 100 100 05/18/18 16:00 05/18/18 20:00 05/18/18 20:08 Temperature 98.0 F 97.8 F Pulse Rate 68 76 Respiratory Rate 20 18 18 Blood Pressure 134/94 H 135/92 H Pulse Oximetry 98 95 05/19/18 00:00 05/19/18 00:06 05/19/18 00:08 Temperature 97.8 F Pulse Rate 65 Respiratory Rate 18 18 18 Blood Pressure 133/87 Pulse Oximetry 98 05/19/18 00:38 05/19/18 04:00 05/19/18 04:33 Temperature 97.4 F L Pulse Rate 64 Respiratory Rate 18 18 18 Blood Pressure 130/81 Pulse Oximetry 95 05/19/18 08:00 Temperature 97.7 F Pulse Rate 72 Respiratory Rate 20 Blood Pressure 139/97 H Pulse Oximetry 96 Intake & Output 05/18/18 05/19/18 05/19/18 18:59 06:59 18:59 Intake Total 1939 1000 / 1000 Balance 1939 1000 / 1000 Weight 62.3 kg Intake: IV 1100 / 1100 1000 / 1000 1000 / 1000 NS Inj 1,000 ML @ 100 mls/hr IV 1000 / 1000 1000 / 1000 1000 / 1000 .CONT .Q10H THERESE Rx#:[id number] Rocephin Inj 1,000 MG In NS Inj 100 / 100 100 ML @ 200 mls/hr IV.SIG Q24H THERESE Rx#:[id number] Oral 840 / 840 720 / 720 Other 368 / 368 Other: Other Intake Source Saline Solution # Voids 5 69 # Bowel Movements 0 0 <Neha Lewis M - 05/19/18 12:21> Vital Signs 05/17/18 16:00 05/17/18 16:12 05/17/18 20:00 Temperature 97.9 F 98.1 F Pulse Rate 76 78 69 Respiratory Rate 18 20 Blood Pressure 126/64 132/88 Pulse Oximetry 97 98 05/18/18 00:00 05/18/18 04:00 05/18/18 08:00 Temperature 98.1 F 97.8 F 98.5 F Pulse Rate 53 L 55 L 62 Respiratory Rate 20 18 20 Blood Pressure 132/88 138/85 135/103 H Pulse Oximetry 98 98 95 05/18/18 09:00 Temperature Pulse Rate 63 Respiratory Rate Blood Pressure Pulse Oximetry Intake & Output 05/17/18 05/18/18 05/18/18 18:59 06:59 18:59 Intake Total 820 / 820 100 / 100 Balance 820 / 820 100 / 100 Intake: IV 100 / 100 100 / 100 Rocephin Inj 1,000 MG In NS Inj 100 / 100 100 / 100 100 ML @ 200 mls/hr IV.SIG Q24H THERESE Rx#:[id number] Oral 720 / 720 Other: # Voids 6 <Shala Zuniga V - 05/18/18 13:53> Narrative: GENERAL: white female sitting up in bed, in no acute distress SKIN: Warm and dry. Multiple tattoos. HEAD: Atraumatic. Normocephalic. EYES: No scleral icterus. No injection or drainage. CARDIOVASCULAR: Regular rate and rhythm. RESPIRATORY: No accessory muscle use. Clear to auscultation. Breath sounds equal bilaterally. GASTROINTESTINAL: Abdomen soft, non-tender, nondistended. Resolved CVA tenderness MUSCULOSKELETAL: Extremities without clubbing, cyanosis, or edema. No obvious deformities. NEUROLOGICAL: Awake and alert. No obvious cranial nerve deficits. Motor grossly within normal limits. Normal speech. PSYCHIATRIC: Appropriate mood and affect; insight and judgment normal. <Shala Zuniga V - 05/18/18 13:53> Assessment and Plan - Assessment (1) Sepsis Code(s): A41.9 - Sepsis, unspecified organism Status: Resolved (2) Pyelonephritis Code(s): N12 - Tubulo-interstitial nephritis, not specified as acute or chronic Status: Acute (3) Obstruction, uropathy Code(s): N13.9 - Obstructive and reflux uropathy, unspecified Status: Chronic (4) Endometritis Code(s): N71.9 - Inflammatory disease of uterus, unspecified Status: Chronic (5) Ovarian cyst Code(s): N83.209 - Unspecified ovarian cyst, unspecified side Status: Chronic (6) Bacteremia due to Enterobacter species Code(s): R78.81 - Bacteremia; B96.89 - Other specified bacterial agents as the cause of diseases classified elsewhere Status: Acute (7) Nutrition, metabolism, and development symptoms Code(s): R63.8 - Other symptoms and signs concerning food and fluid intake Status: Acute (8) DVT prophylaxis Status: Acute <Neha Lewis M - 05/19/18 12:21> (1) Sepsis Code(s): A41.9 - Sepsis, unspecified organism Status: Resolved Plan: 28-year-old presented to the ED meeting criteria of severe sepsis. VS on admissions of HR 131, RR 20, BP 164/76. Pt has improved clinically. Will continue current treatment. UA positive for UTI w/ leukocyte esterase, high WBC, and moderate blood. CT a abdomen with persistent severe left-sided hydroureteronephrosis -Leukocytosis on admission WBC 17.2 w/ left shift Lactic acid on admission 3.1, repeat lactic acid 1.7 Urine cx positive for Citrobacter koseri, sensitive to all tested abx -Blood culture x 1 positive for Citrobacter koseri Continue Ceftriaxone 1 g every 24 hours Zofran 4mg IV as needed for nausea (2) Pyelonephritis Code(s): N12 - Tubulo-interstitial nephritis, not specified as acute or chronic Status: Acute Plan: Pt presenting with sepsis symptoms with pyelonephritis and bacteremia. Is getting a procedure by Urology done today. Depending on their recommendations will likely discharge pt home tomorrow. Continue Ceftriaxone 1 g every 24 hours (815)-> will switch to oral antibiotics tomorrow Zofran 4mg IV as needed for nausea Pain: Decreased from 4 to 2 mg Morphine IV q4 PRN Repeat Blood cultures today (3) Obstruction, uropathy Code(s): N13.9 - Obstructive and reflux uropathy, unspecified Status: Chronic Plan: Left-sided hydroureteronephrosis with recurrent UTI's and hospitalizations due to this issue. Pt believes some of this is due to endometriosis, and may benefit as an out pt seeing a Urogynecologist Urology consulted, appreciate recommendations -Pt scheduled in the OR today for urologic investigation to include cystoscopy, left retrograde pyelogram and left ureteroscopy. - Will follow up recommendations (4) Endometritis Code(s): N71.9 - Inflammatory disease of uterus, unspecified Status: Chronic Plan: Pt diagnosed and treated as a teenager. Currently does not take any medications. very unusual to have this condition at such a young age. unsure how it was diagnosed. she had depolupron for 6 months and has been fine for years - Might need referral to Structural Analysis Engineer after hospitalization (5) Ovarian cyst Code(s): N83.209 - Unspecified ovarian cyst, unspecified side Status: Chronic Plan: Pt diagnosed with ovarian cyst in the past. Does not take any medications at this time. unclear if this was physiologic but most cysts resolve on their own (6) Bacteremia due to Enterobacter species Code(s): R78.81 - Bacteremia; B96.89 - Other specified bacterial agents as the cause of diseases classified elsewhere Status: Acute Plan: Positive blood culture x1 for Citrobacter Koseri. Same organism as urine. -Pansensitive - Continue Ceftriaxone 1gr IV q24 hrs - Will plan to sent patient home with at least a total of 14 days course of antibiotics - Repeat blood culture today (7) Nutrition, metabolism, and development symptoms Code(s): R63.8 - Other symptoms and signs concerning food and fluid intake Status: Acute Plan: -Regular diet - tolerating po - Monitor and replace electrolytes as needed - Ambulate as tolerated -Regular diet for dinner (8) DVT prophylaxis Status: Acute Plan: Pt low risk for DVT: young, active, no hx of DVT. - SCD's bilaterally - Pt currently not using SCD's but ambulating <Shala Zuniga V - 05/18/18 13:36> - Assessment and Plan The exam, history, and the medical decision-making described in the above note were completed with the assistance of the resident physician. I reviewed and agree with the findings presented. I attest that I had a [id number] encounter with the patient on the same day, and personally performed and documented my assessment and findings in the medical record. she is stable and improved since admission <Shala Zuniga V - 05/18/18 13:53> - Attending Attestation The exam, history, and the medical decision-making described in the above note were completed with the assistance of the resident physician. I reviewed and agree with the findings presented. I attest that I had a [id number] encounter with the patient on the same day, and personally performed and documented my assessment and findings in the medical record. Appreciate help from urology. <Neha Lewis M - 05/19/18 12:21> <Shala Zuniga V - Last Filed: 05/18/18 13:36> (1) Sepsis Qualifiers: Sepsis type: sepsis due to unspecified organism Qualified Code(s): A41.9 - Sepsis, unspecified organism <Neha Lewis M - Last Filed: 05/19/18 12:21> (1) Sepsis Qualifiers: Sepsis type: sepsis due to unspecified organism Qualified Code(s): A41.9 - Sepsis, unspecified organism <Shala Zuniga V - Last Filed: 05/18/18 13:36> (1) Sepsis Qualifiers: Sepsis type: sepsis due to unspecified organism Qualified Code(s): A41.9 - Sepsis, unspecified organism <Neha Lewis M - Last Filed: 05/19/18 12:21> (1) Sepsis Qualifiers: Sepsis type: sepsis due to unspecified organism Qualified Code(s): A41.9 - Sepsis, unspecified organism
--- NOTE | 2018-05-18 13:56 | P.OP ---
- Preoperative Diagnosis (1) Ureteral obstruction, left - Postoperative Diagnosis (1) Ureteral obstruction, left Date of procedure: 05/18/18 Procedure: Cystoscopy, left retrograde pyelogram, left ureteroscopy and insertion of left ureteral stent. Implants: Left ureteral stent Anesthesia: MAC Surgeon: Tera Salinas MD Estimated blood loss (mL): 0 Pathology: none sent Operation and Findings: Indication for procedures: Case of a pleasant 28-year-old female with long- standing left hydroureteronephrosis of indeterminate etiology who presents today for further urologic workup. Operative procedure in detail: Patient was brought to the operating room suite and placed supine on the cystoscopy table. She was then placed under general anesthesia. She was then repositioned in the dorsolithotomy position and prepped and draped in normal sterile fashion. After an appropriate timeout was undertaken I proceeded with cystoscopic evaluation utilizing the rigid cystoscope with the 20 [place] sheath and 30 degree lens. Both right and left ureteral orifices were in correct anatomic position. There was clear reflux of urine on the right and no reflux on the left noted. There also noted to be some subtle changes of cystitis glandularis throughout the urinary bladder. I then proceeded to pass a sensor 0.035 wire up the left ureter all the way up into the left kidney. The cystoscope was then withdrawn leaving the wire in place and the self dilating ureteroscope was advanced alongside the previously placed wire. Upon passing the ureteroscope several centimeters from ureteral orifice there was kinking of the ureter noted. This was at the site of the patient's known left ovarian cyst. The semirigid ureteroscope was exchanged for the flexible ureteroscope and full left ureteroscopy was performed. The ureter superior to the kinking was markedly dilated. There was no evidence of endometriosis, stones or tumor formation within the left ureter. The flexible ureteroscope was withdrawn and the cystoscope reintroduced and the wire backloaded. A 6 [place] open-ended ureteral catheter was then advanced over the wire all the way up into the left kidney and the wire was withdrawn. A retrograde pyelogram study was then performed to outline the collecting system. The open-ended catheter was then exchanged for a [place] 6 [place] by 26 cm double-J stent. The stent was placed utilizing both cystoscopic and fluoroscopic guidance. Once the stent was in proper position the trailing string was removed. The urinary bladder was emptied and the cystoscope was withdrawn. The patient tolerated the procedures without complications and was transferred to the PACU in satisfactory condition. Plan will be to leave the double-J stent indwelling for minimum of 2 months time and subsequently removed. Hopefully by virtue of having had a stent in place for at least 2 months the ureter will straighten out and the obstruction will be relieved. If the obstruction persists after stent removal and the patient will need to have a left stent reinserted and have the left ovarian cystic lesion addressed by her obstetrics technician.
[2018-05-18] MEDS ORDERED: fentaNYL Citrate Inj 100 MCG/2 ML Ampul ONE (13:57)
[2018-05-18] MEDS: Sod Chloride 0.9% Inj 1,000 ML IV.CONT SCH ×2 (15:04→20:08)
[2018-05-18] MEDS ORDERED: Naloxone Inj 0.4 MG/ML Vial IV.PUSH PRN (15:24)
[2018-05-18] MEDS ORDERED: Acetaminophen 325 MG Tablet PO PRN (15:24)
[2018-05-19] MEDS: Senna/Docusate Sodium 8.6/50 MG Tablet PO SCH ×2 (00:08→08:45)
[2018-05-19] MEDS: Sod Chloride 0.9% Inj 1,000 ML IV.CONT SCH ×2 (00:11→06:17)
[2018-05-19 07:20] LABS: Baso % (Auto) 0.2 % (0.0-2.0); Hematocrit 35.8 % (35.0-46.0); Hemoglobin 12.4 gm/dL (11.6-15.3); Lymph # (Auto) 0.9 th/mm3 (1.0-4.8); Lymph % (Auto) 12.2 % (9.0-44.0); Mean Corpuscular HGB Conc 34.7 % (32.0-36.0); Mean Corpuscular Hemoglobin 33.3 pg (27.0-34.0); Mean Corpuscular Volume 95.9 fL (80.0-100.0); Mean Platelet Volume 7.7 fL (7.0-11.0); Mono # (Auto) 0.7 th/mm3 (0.0-0.9); Mono % (Auto) 8.8 % (0.0-8.0); Neut # (Auto) 5.9 th/mm3 (1.8-7.7); Neut % (Auto) 78.8 % (16.0-70.0); Platelet Count 403 th/mm3 (150-450); Red Blood Count 3.74 mil/mm3 (4.00-5.30); White Blood Count 7.5 th/mm3 (4.0-11.0)
[2018-05-19 07:39] LABS: Anion Gap 6 meq/L (5-15); Blood Urea Nitrogen 6 mg/dL (7-18); Calcium 8.5 mg/dL (8.5-10.1); Carbon Dioxide 29.4 meq/L (21.0-32.0); Chloride 105 meq/L (98-107); Glomerular Filtration Rate Greater Than 89 mL/min (>89); Glucose,Random 106 mg/dL (74-106); Potassium 3.6 meq/L (3.5-5.1); Sodium 140 meq/L (136-145)
[2018-05-19] MEDS ORDERED: levoFLOXacin 750 MG Tablet PO SCH (09:00)
--- NOTE | 2018-05-19 13:02 | US ---
EXAM DATE: 05/19/2018 12:58 PM EDT AGE/SEX: 28 years / Female INDICATIONS: Ovarian cysts. Evaluate for endometrioma. CLINICAL DATA: This is the patient's initial encounter. Patient reports that signs and symptoms have been present for 1 day and indicates a pain score of 6/10. MEDICAL/SURGICAL HISTORY: . Endometriosis. . Ureteral stent placed yesterday. COMPARISON: No prior exams available for comparison. MEASUREMENTS: Uterus:__7.8 x 4.8 x 3.3 cm Endometrial Stripe:__6 mm Right Ovary:__ 3.6 x 1.8 x 2.0 cm Left Ovary:__ 4.9 x 5.0 x 2.3 cm FINDINGS: Uterus: The myometrium has homogeneous echotexture without mass. Endometrial Stripe: The endometrial stripe displays homogeneous echotexture. Right Ovary: Approximate 1.2 cm cyst is present in the right ovary. Left Ovary: There are cysts in the left ovary the largest measures 3.0 and 2.3 cm in size. Fluid: No free fluid. Other: None. CONCLUSION: 1. Simple cysts in the ovaries. Electronically signed by: Alyson Martínez MD 05/19/2018 1:01 PM EDT
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
--- NOTE | 2018-05-19 14:16 | P.PNFP ---
Results - Labs Result diagrams: 05/19/18 06:04 05/19/18 06:04 Abnormal lab results 05/19/18 05/19/18 Range/Units 06:04 06:04 RBC 3.74 L (4.00-5.30) mil/mm3 Neut % (Auto) 78.8 H (16.0-70.0) % [place] % (Auto) 8.8 H (0.0-8.0) % Lymph # (Auto) 0.9 L (1.0-4.8) th/mm3 BUN 6 L (7-18) mg/dL Short CBC 05/19/18 Range/Units 06:04 WBC 7.5 (4.0-11.0) th/mm3 Hgb 12.4 (11.6-15.3) gm/dL Hct 35.8 (35.0-46.0) % Plt Count 403 (150-450) th/mm3 BMP 05/19/18 06:04 Sodium 140 Potassium 3.6 Chloride 105 Carbon Dioxide 29.4 BUN 6 L Creatinine 0.62 Calcium 8.5 - Imaging Impressions Pelvis Ultrasound 05/19/18 11:37 CONCLUSION: 1. Simple cysts in the ovaries. Physical Exam Vital signs: Vital Signs 05/18/18 16:00 05/18/18 20:00 05/18/18 20:08 Temperature 98.0 F 97.8 F Pulse Rate 68 76 Respiratory Rate 20 18 18 Blood Pressure 134/94 H 135/92 H Pulse Oximetry 98 95 05/19/18 00:00 05/19/18 00:06 05/19/18 00:08 Temperature 97.8 F Pulse Rate 65 Respiratory Rate 18 18 18 Blood Pressure 133/87 Pulse Oximetry 98 05/19/18 00:38 05/19/18 04:00 05/19/18 04:33 Temperature 97.4 F L Pulse Rate 64 Respiratory Rate 18 18 18 Blood Pressure 130/81 Pulse Oximetry 95 05/19/18 08:00 Temperature 97.7 F Pulse Rate 72 Respiratory Rate 20 Blood Pressure 139/97 H Pulse Oximetry 96 Intake & Output 05/18/18 05/19/18 05/19/18 18:59 06:59 18:59 Intake Total 1939 1000 / 1000 Balance 1939 1000 / 1000 Weight 62.3 kg Intake: IV 1100 / 1100 1000 / 1000 1000 / 1000 NS Inj 1,000 ML @ 100 mls/hr IV 1000 / 1000 1000 / 1000 1000 / 1000 .CONT .Q10H [facility] Rx#:[id number] Rocephin Inj 1,000 MG In NS Inj 100 / 100 100 ML @ 200 mls/hr IV.SIG Q24H [facility] Rx#:[id number] Oral 840 / 840 720 / 720 Other 368 / 368 Other: Other Intake Source Saline Solution # Voids 5 69 # Bowel Movements 0 0 Assessment and Plan - Assessment (1) Sepsis Code(s): A41.9 - Sepsis, unspecified organism Status: Resolved Plan: 28-year-old presented to the ED meeting criteria of severe sepsis. VS on admissions of HR 131, RR 20, BP 164/76. Pt has improved clinically. Will continue current treatment. UA positive for UTI w/ leukocyte esterase, high WBC, and moderate blood. CT a abdomen with persistent severe left-sided hydroureteronephrosis -Leukocytosis on admission WBC 17.2 w/ left shift Lactic acid on admission 3.1, repeat lactic acid 1.7 Urine cx positive for Citrobacter koseri, sensitive to all tested abx -Blood culture x 1 positive for Citrobacter koseri Continue Ceftriaxone 1 g every 24 hours Zofran 4mg IV as needed for nausea (2) Pyelonephritis Code(s): N12 - Tubulo-interstitial nephritis, not specified as acute or chronic Status: Acute Plan: Pt presenting with sepsis symptoms with pyelonephritis and bacteremia. Is getting a procedure by Urology done today. Depending on their recommendations will likely discharge pt home tomorrow. Continue Ceftriaxone 1 g every 24 hours ()-> will switch to oral antibiotics tomorrow Zofran 4mg IV as needed for nausea Pain: Decreased from 4 to 2 mg Morphine IV q4 PRN Repeat Blood cultures today (3) Obstruction, uropathy Code(s): N13.9 - Obstructive and reflux uropathy, unspecified Status: Chronic Plan: Left-sided hydroureteronephrosis with recurrent UTI's and hospitalizations due to this issue. Pt believes some of this is due to endometriosis, and may benefit as an out pt seeing a Urogynecologist Urology consulted, appreciate recommendations -Pt scheduled in the OR today for urologic investigation to include cystoscopy, left retrograde pyelogram and left ureteroscopy. - Will follow up recommendations (4) Endometritis Code(s): N71.9 - Inflammatory disease of uterus, unspecified Status: Chronic Plan: Pt diagnosed and treated as a teenager. Currently does not take any medications. very unusual to have this condition at such a young age. unsure how it was diagnosed. she had depolupron for 6 months and has been fine for years - Might need referral to Seed Cleaner after hospitalization (5) Ovarian cyst Code(s): N83.209 - Unspecified ovarian cyst, unspecified side Status: Chronic Plan: Pt diagnosed with ovarian cyst in the past. Does not take any medications at this time. unclear if this was physiologic but most cysts resolve on their own (6) Bacteremia due to Enterobacter species Code(s): R78.81 - Bacteremia; B96.89 - Other specified bacterial agents as the cause of diseases classified elsewhere Status: Acute Plan: Positive blood culture x1 for Citrobacter Koseri. Same organism as urine. -Pansensitive - Continue Ceftriaxone 1gr IV q24 hrs - Will plan to sent patient home with at least a total of 14 days course of antibiotics - Repeat blood culture today (7) Nutrition, metabolism, and development symptoms Code(s): R63.8 - Other symptoms and signs concerning food and fluid intake Status: Acute Plan: -Regular diet - tolerating po - Monitor and replace electrolytes as needed - Ambulate as tolerated -Regular diet for dinner (8) DVT prophylaxis Status: Acute Plan: Pt low risk for DVT: young, active, no hx of DVT. - SCD's bilaterally - Pt currently not using SCD's but ambulating - Assessment and Plan The exam, history, and the medical decision-making described in the above note were completed with the assistance of the resident physician. I reviewed and agree with the findings presented. I attest that I had a [id number] encounter with the patient on the same day, and personally performed and documented my assessment and findings in the medical record. she is stable and improved since admission (1) Sepsis Qualifiers: Qualified Code(s): A41.9 - Sepsis, unspecified organism
--- NOTE | 2018-05-19 15:25 | P.PNFP ---
Subjective Interval history: Ms Horan is status post procedure today. She is doing well she does have some postprocedure pain. She is eating her urine is still a little bit bloody but everything else is back to normal. She and her mother were very concerned about her ovarian cyst. She was concerned that this cyst had caused all of her urologic problems including repeated pyelonephritis and obstruction. I discussed with her that this was approximately an inch and a half in diameter. She wanted the cyst removed while she was in the hospital. Her medical team explained that usually assist with wants to be sure that it went away as opposed to doing a surgical procedure because cysts are very common and normally resolve on their own. However gynecology was consulted to see if they had a different opinion. After that she is ready to go home. Results - Labs Result diagrams: 05/19/18 06:04 05/19/18 06:04 Abnormal lab results 05/19/18 05/19/18 Range/Units 06:04 06:04 RBC 3.74 L (4.00-5.30) mil/mm3 Neut % (Auto) 78.8 H (16.0-70.0) % [place] % (Auto) 8.8 H (0.0-8.0) % Lymph # (Auto) 0.9 L (1.0-4.8) th/mm3 BUN 6 L (7-18) mg/dL Short CBC 05/19/18 Range/Units 06:04 WBC 7.5 (4.0-11.0) th/mm3 Hgb 12.4 (11.6-15.3) gm/dL Hct 35.8 (35.0-46.0) % Plt Count 403 (150-450) th/mm3 BMP 05/19/18 06:04 Sodium 140 Potassium 3.6 Chloride 105 Carbon Dioxide 29.4 BUN 6 L Creatinine 0.62 Calcium 8.5 - Imaging Impressions Pelvis Ultrasound 05/19/18 11:37 CONCLUSION: 1. Simple cysts in the ovaries. Physical Exam Vital signs: Vital Signs 05/18/18 16:00 05/18/18 20:00 05/18/18 20:08 Temperature 98.0 F 97.8 F Pulse Rate 68 76 Respiratory Rate 20 18 18 Blood Pressure 134/94 H 135/92 H Pulse Oximetry 98 95 05/19/18 00:00 05/19/18 00:06 05/19/18 00:08 Temperature 97.8 F Pulse Rate 65 Respiratory Rate 18 Blood Pressure 133/87 Pulse Oximetry 98 05/19/18 00:38 05/19/18 04:00 05/19/18 04:33 Temperature 97.4 F L Pulse Rate 64 Respiratory Rate 18 18 18 Blood Pressure 130/81 Pulse Oximetry 95 05/19/18 08:00 Temperature 97.7 F Pulse Rate 72 Respiratory Rate 20 Blood Pressure 139/97 H Pulse Oximetry 96 Intake & Output 05/18/18 05/19/18 05/19/18 18:59 06:59 18:59 Intake Total 1939 / 2087 1000 / 1000 Balance 1939 1000 / 1000 Weight 62.3 kg Intake: IV 1100 / 1100 1000 / 1000 1000 / 1000 NS Inj 1,000 ML @ 100 mls/hr IV 1000 / 1000 1000 / 1000 1000 / 1000 .CONT .Q10H [facility] Rx#:[id number] Rocephin Inj 1,000 MG In NS Inj 100 / 100 100 ML @ 200 mls/hr IV.SIG Q24H [facility] Rx#:[id number] Oral 840 / 840 720 / 720 Other 368 / 368 Other: Other Intake Source Saline Solution # Voids 5 69 # Bowel Movements 0 0 Narrative: GENERAL: white female sitting up in bed, in no acute distress SKIN: Warm and dry. Multiple tattoos. HEAD: Atraumatic. Normocephalic. EYES: No scleral icterus. No injection or drainage. CARDIOVASCULAR: Regular rate and rhythm. RESPIRATORY: No accessory muscle use. Clear to auscultation. Breath sounds equal bilaterally. GASTROINTESTINAL: Abdomen soft, non-tender, nondistended. Resolved CVA tenderness MUSCULOSKELETAL: Extremities without clubbing, cyanosis, or edema. No obvious deformities. NEUROLOGICAL: Awake and alert. No obvious cranial nerve deficits. Motor grossly within normal limits. Normal speech. PSYCHIATRIC: Appropriate mood and affect; insight and judgment normal. Assessment and Plan - Assessment (1) Pyelonephritis Code(s): N12 - Tubulo-interstitial nephritis, not specified as acute or chronic Status: Acute Plan: Pt presenting with sepsis symptoms with pyelonephritis and bacteremia. Is getting a procedure by Urology done today. Depending on their recommendations will likely discharge pt home tomorrow. Continued Ceftriaxone 1 g every 24 hours (815-05/18)-> levaquin to go home on x 7 days Zofran 4mg IV as needed for nausea Pain: Decreased from 4 to 2 mg Morphine IV q4 PRN, only on po at home Repeated Blood cultures (2) Sepsis Code(s): A41.9 - Sepsis, unspecified organism Status: Resolved Plan: 28-year-old presented to the ED meeting criteria of severe sepsis. VS on admissions of HR 131, RR 20, BP 164/76. Pt has improved clinically. Will continue current treatment. UA positive for UTI w/ leukocyte esterase, high WBC, and moderate blood. CT a abdomen with persistent severe left-sided hydroureteronephrosis -Leukocytosis on admission WBC 17.2 w/ left shift Lactic acid on admission 3.1, repeat lactic acid 1.7 Urine cx positive for Citrobacter koseri, sensitive to all tested abx -Blood culture x 1 positive for Citrobacter koseri see plan for sepsis (3) Ovarian cyst Code(s): N83.209 - Unspecified ovarian cyst, unspecified side Status: Chronic Plan: Pt diagnosed with ovarian cyst in the past. Does not take any medications at this time. unclear if this was physiologic but most cysts resolve on their own she saw BROADCAST METEOROLOGIST who started her on oral contraceptives to prevent cysts (4) Obstruction, uropathy Code(s): N13.9 - Obstructive and reflux uropathy, unspecified Status: Chronic Plan: Left-sided hydroureteronephrosis with recurrent UTI's and hospitalizations due to this issue. Pt believes some of this is due to endometriosis, and may benefit as an out pt seeing a Urogynecologist Urology consulted, appreciate recommendations -Pt scheduled in the OR today for urologic investigation to include cystoscopy, left retrograde pyelogram and left ureteroscopy. - Will follow up recommendations (5) Hydronephrosis Code(s): N13.30 - Unspecified hydronephrosis Status: Acute Plan: treated surgically with stent per Urology (6) Bacteremia due to Enterobacter species Code(s): R78.81 - Bacteremia; B96.89 - Other specified bacterial agents as the cause of diseases classified elsewhere Status: Acute Plan: Positive blood culture x1 for Citrobacter Koseri. Same organism as urine. -Pansensitive - Continued Ceftriaxone 1gr IV q24 hrs - Will plan to sent patient home with at least a total of 14 days course of antibiotics - Assessment and Plan The exam, history, and the medical decision-making described in the above note were completed with the assistance of the resident physician. I reviewed and agree with the findings presented. I attest that I had a [id number] encounter with the patient on the same day, and personally performed and documented my assessment and findings in the medical record. she is stable and improved since admission Discharge Planning: She is doing well postprocedure and is ready to be discharged home today. She knows she needs to follow-up with urology and have her stent removed in several months (2) Sepsis Qualifiers: Sepsis type: sepsis due to unspecified organism Qualified Code(s): A41.9 - Sepsis, unspecified organism (5) Hydronephrosis Qualifiers: Hydronephrosis type: with ureteropelvic junction obstruction Qualified Code(s ): Q62.11 - Congenital occlusion of ureteropelvic junction
--- NOTE | 2018-05-19 16:47 | ECG ---
Date Performed: 05/17/2018 Time Performed: 20:04:30 PTAGE: 28 years EKG: SINUS BRADYCARDIA Compared to previous tracing, sinus rate is slower BORDERLINE ECG PREVIOUS TRACING : 04/12/2014 13.54 DOCTOR: Vicente Holliday Interpretating Date/Time 05/19/2018 16:46:43
--- NOTE | 2018-05-19 17:16 | P.PN ---
Subjective Interval history: VOICER consult I personally saw and examined patient with the resident team. The patient is a 28 year-old G0 with a history of endometriosis and history of frequent UTIs and pyelonephritis who was admitted with hydronephrosis. On uroscopy yesterday she was noted to have a "kinked" ureter and a stent was placed. She has a history of a persistent left ovarian cyst that was noted on admission CT. [id number] Developer has been consulted to rule out potential of cyst causing compressed ureter. Transvaginal ultrasound imaging shows a simple 1.2cm right ovarian cyst and 2 simple left ovarian cysts, measuring 3cm and 2cm. It is highly unlikely these 2 simple cysts are responsible for ureteral compression and hydronephrosis. The patient does have a long history of endometriosis; no endometriosis was noted on ureteroscopy, but patient could have endometriosis that would require other diagnostic techniques. Would recommend outpatient filter assembler follow up to follow cysts and further evaluation for endometriosis. Physical Exam Vital signs: Vital Signs 05/18/18 20:00 05/18/18 20:08 05/19/18 00:00 Temperature 97.8 F 97.8 F Pulse Rate 76 65 Respiratory Rate 18 18 18 Blood Pressure 135/92 H 133/87 Pulse Oximetry 95 98 05/19/18 00:06 05/19/18 00:08 05/19/18 00:38 Temperature Pulse Rate Respiratory Rate 18 18 18 Blood Pressure Pulse Oximetry 05/19/18 04:00 05/19/18 04:33 05/19/18 08:00 Temperature 97.4 F L 97.7 F Pulse Rate 64 72 Respiratory Rate 18 18 20 Blood Pressure 130/81 139/97 H Pulse Oximetry 95 96 05/19/18 12:00 Temperature 97.9 F Pulse Rate 77 Respiratory Rate 20 Blood Pressure 130/84 Pulse Oximetry 97 Intake & Output 05/18/18 05/19/18 05/19/18 18:59 06:59 18:59 Intake Total 1939 1000 / 1000 Balance 1939 1000 / 1000 Weight 62.3 kg Intake: IV 1100 / 1100 1000 / 1000 1000 / 1000 NS Inj 1,000 ML @ 100 mls/hr IV 1000 / 1000 1000 / 1000 1000 / 1000 .CONT .Q10H [facility] Rx#:[id number] Rocephin Inj 1,000 MG In NS Inj 100 / 100 100 ML @ 200 mls/hr IV.SIG Q24H [facility] Rx#:[id number] Oral 840 / 840 720 / 720 Other 368 / 368 Other: Other Intake Source Saline Solution # Voids 5 69 # Bowel Movements 0 0 Results - Labs CBC & Chem 7: 05/19/18 06:04 05/19/18 06:04 Laboratory Results - last 24 hr 05/19/18 05/19/18 06:04 06:04 WBC 7.5 RBC 3.74 L Hgb 12.4 Hct 35.8 MCV 95.9 MCH 33.3 MCHC 34.7 RDW 13.0 Plt Count 403 MPV 7.7 Neut % (Auto) 78.8 H Lymph % (Auto) 12.2 [place] % (Auto) 8.8 H Eos % (Auto) 0.0 Baso % (Auto) 0.2 Neut # (Auto) 5.9 Lymph # (Auto) 0.9 L [place] # (Auto) 0.7 Eos # (Auto) 0.0 Baso # (Auto) 0.0 WBC Differential . Differential Comment Auto diff final Sodium 140 Potassium 3.6 Chloride 105 Carbon Dioxide 29.4 Anion Gap 6 BUN 6 L Creatinine 0.62 Estimated GFR Greater than 89 Random Glucose 106 Calcium 8.5 Microbiology 05/18/18 16:55 Blood - Peripheral Aerobic Blood Culture - Preliminary No growth in 1 day 05/18/18 16:55 Blood - Peripheral Anaerobic Blood Culture - Preliminary No growth in 1 day 05/18/18 16:50 Blood - Peripheral Aerobic Blood Culture - Preliminary No growth in 1 day 05/18/18 16:50 Blood - Peripheral Anaerobic Blood Culture - Preliminary No growth in 1 day - Imaging Impressions Pelvis Ultrasound 05/19/18 11:37 CONCLUSION: 1. Simple cysts in the ovaries.
--- NOTE | 2018-05-25 22:47 | P.DS ---
Date of admission: 05/13/18 11:50 Primary care physician: No Primary Care Physician Brief History from admission: History of Present Illness: Pt is a 28 yr old female with history recurrent UTIs in the past usually accompanied with sepsis symptoms, hydronephrosis and has had several hospitalizations due to this problem. She presented to the ED this morning with severe left flank pain. She was feeling okay last night but woke up this morning with pain, nausea, and vomiting. She was unable to eat breakfast. She felt her temperature was elevated but did not measure it at home. Patient was hospitalized this past February for urosepsis at a different hospital, and has a history of frequent hospitalizations with hydronephrosis, pyelonephritis, and sepsis symptoms. Patient has discussed the option of stenting her left ureter in the past, however it has not be done until this moment. Patient ROS is + for fever, chills, nausea, vomiting, left flank pain, "strong urine odor ". (-) For chest pain, shortness of breath, constipation diarrhea, weakness. DS: Diagnosis - Discharge Diagnosis (1) Sepsis Status: Resolved (2) Pyelonephritis Status: Acute (3) Obstruction, uropathy Status: Chronic (4) Endometritis Status: Chronic (5) Ovarian cyst Status: Chronic (6) Bacteremia due to Enterobacter species Status: Acute (7) Nutrition, metabolism, and development symptoms Status: Acute (8) DVT prophylaxis Status: Acute DS: Medications - Discharge Medications Prescriptions: hydrocodone-acetaminophen 1 tab PO Q6H PRN #5 tab PRN Reason: Acute Pain ibuprofen 600 mg PO TID 7 Days #21 tab levofloxacin 750 mg PO DAILY 7 Days #7 tab sennosides-docusate sodium [Senna Plus] 1 tab PO BID 7 Days #14 tab DS: Summary Hospital Course: Patient is a 28-year-old female with a past medical history of recurrent UTIs and sepsis symptoms, hydronephrosis, and several past hospitalizations for this problem. Patient presented to the ED with severe left flank pain, nausea and vomiting. Patient had been hospitalized this past February for urosepsis at a different hospital. She has a history of hydronephrosis, pyelonephritis and has follow up as an outpatient with urology for possible stent placement. On admission patient met criteria for severe sepsis with a heart rate of 131, respiratory rate of 20 UA positive for UTI and a CT abdomen with persistent severe left-sided hydroureteronephrosis she also presented with leukocytosis of 17.2 with a left shift and lactic acid of 3.1. Patient was admitted to the hospital and treated with IV ceftriaxone for 5 days before switching to oral on discharge. Patient urine cultures resulted positive for Citrobacter Koseri sensitive to all tested antibiotics, urine culture grew the same bacteria. Due to the severe of these symptoms and that recurrent infections urology was consulted, and they proceeded with urologic investigation including cystoscopy left retrograde pyelogram and ureteroscopy. A stent was placed on the left ureter which was found to be kinked. Patient was also found to have an ovarian cyst, urology believes this might have been the cause of her urethral obstruction, an MARKET MAKER consult was placed. Patient was evaluated and a transvaginal ultrasound was performed. MARKET MAKER physician's opinion is that the cyst is was too small to cause the obstruction. After resolution of patient's symptoms, negative blood cultures, and improved clinical picture, patient was discharged home on Levaquin antibiotics for a duration of 7 days. Patient is to follow-up outpatient with urology to get stent removed in 2 months, as well as a follow up with MARKET MAKER for this cysts/questionable history of endometriosis at age 15. It is our hope that by placing the stent, this patient will avoid recurrent hospitalizations due to sepsis of urine origin. Patient does not have insurance making it difficult to continue her follow-up as an outpatient. community arts centre manager has been involved on her care and will help as possible. Patient was discharged home on his stable condition, with antibiotic regimen and pain medications. Patient was also encouraged to have a primary care doctor. - Time Spent with Patient Total time spent providing and/or coordinating discharge services: Greater than 30 minutes Exam Vital signs: T 97.7F, p72, RR20, Bp 139/97 Narrative: GENERAL: white female sitting up in bed, in no acute distress SKIN: Warm and dry. Multiple tattoos. HEAD: Atraumatic. Normocephalic. EYES: No scleral icterus. No injection or drainage. CARDIOVASCULAR: Regular rate and rhythm. RESPIRATORY: No accessory muscle use. Clear to auscultation. Breath sounds equal bilaterally. GASTROINTESTINAL: Abdomen soft, non-tender, nondistended. Resolved CVA tenderness MUSCULOSKELETAL: Extremities without clubbing, cyanosis, or edema. No obvious deformities. NEUROLOGICAL: Awake and alert. No obvious cranial nerve deficits. Motor grossly within normal limits. Normal speech. PSYCHIATRIC: Appropriate mood and affect; insight and judgment normal. Results Procedures completed during hospitalization: Urology: cystoscopy, left retrograde pyelogram and left ureteroscopy. Stent placement on L ureter: [place] 6 [place] by 26 cm double-J stent - Impressions ITS Impressions Abdomen/Pelvis CT 05/13/18 08:30 CONCLUSION: 1. Persistent severe left-sided hydroureteronephrosis with perinephric stranding concerning for possible superimposed pyelonephritis. Etiology is unclear. Patient does have a persistent 3 cm left adnexal cystic lesion which was present on January 11, 2017 CT exam prior to development of hydronephrosis. Hydronephrosis has been evaluated with multiple CTs and renograms demonstrating sluggish flow but no definitive mechanical obstruction. Consider endometriosis as potential etiology. Patient may benefit from ureteral stent placement. Consider urology consultation. 2. Prominent left retroperitoneal lymph node and additional subcentimeter retroperitoneal adenopathy, likely reactive/infectious in etiology. Pelvis Ultrasound 05/19/18 11:37 CONCLUSION: 1. Simple cysts in the ovaries. Discharge Plan - Discharge Disposition Patient Disposition: 01 Discharge Home - Discharge Condition Condition: Stable - Discharge Order Discharge Orders: Discharge Order (Routine); Ordered 05/19/18 Ordered By: Shala Gonzales MARKET MAKER Clear for Discharge (Routine); Ordered 05/19/18 Ordered By: Sam Mcbride Urology Clear for Discharge (Routine); Ordered 05/18/18 Ordered By: Tera Salinas - Discharge Details Discharge Comment: Patient to have a follow-up urology visit in approximately 3- 4 weeks time [phone]. - Physicians Team Primary Care Provider: Primary Care Physici,No Attending Provider: Neha Lewis Other Providers: Tera Salinas MD ; Thu Hernandez MD
== END 2018-05-19 16:42 | disposition home or self-care (01) ==
LOC: NEPC 08:05 → NEDA 11:50 → N04 18:08
PROVIDERS: ADMIT Family Medicine; ATTEND Family Medicine